=== PATIENT | female | born 1980 | race Caucasian/White ===

== ENCOUNTER 2019-12-29 09:00 | Outpatient (RCR) | payer OTHER, SELFPAY ==
--- NOTE | 2019-02-16 14:12 | PT.OIE ---
Current Diagnoses Other peripheral vertigo, unspecified ear (02/16/19) Cervicalgia (02/16/19) Visit Care Team Role Provider Type Priscila Bella DO Attending Provider Non-Staff Primary Care Provider Specialty: Medical Address: [address] [place] [address], [id number] Email: Physical Therapy Initial Evaluation PT-OP-A Visit Information Start: 02/16/19 07:27 Freq: Status: Active Protocol: Document 02/16/19 07:31 MB (Rec: 02/16/19 08:16 MB [id number]) Out-Patient Physical Therapy Visit Information Visit Information Visit Type Initial Evaluation Visit Start Time 07:31 Visit Stop Time 08:15 Total Visit Minutes 44 Visit Number 1 PT-OP-B Current Condition Start: 02/16/19 07:27 Freq: Status: Active Protocol: Document 02/16/19 07:31 MB (Rec: 02/16/19 08:59 MB [id number]) Current Condition History of Current Condition Onset Date 2011 Current Complaints Dizziness with cervical rotation and manual work. 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 Her inner ear was spared and she has a drain. 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 She is seeing CELESTINO Molina at [facility], for vestibular therapy. 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 She was found to have enlarged lymph node around C2. She gets dizzy with cervical mobility stretches and rotation right and left. She is here for myofascial work on her neck. She wonders what myofascial is. She had a massage in the past and it was not necessarily helpful. She has been seeing CELESTINO Molina for about 2.5 months. She is working on balance exericses, eye movements. She did have a little massage with Tracy and it went well. Tracy wanted pt to have myofascial massage. She has spasms and numbness left side of her face after ear surgery. She has droopiness in the left side of her lips. Her biggest area of spasm is left buccal area. She describes an involuntary Xu curve. 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 Pt denies pain. Patient Questionnaires Dizziness Handicap Inventory DHI Score 54% impairment PT-OP-K Range of Motion Start: 02/16/19 07:27 Freq: Status: Active Protocol: Document 02/16/19 07:31 MB (Rec: 02/16/19 08:59 MB [id number]) Cervical Spine Range of Motion Cervical Spine Active Testing Position Standing Flexion 30 Extension 35 Rotation Left 31 Rotation Right 31 Lateral Flexion Left 15 Lateral Flexion Right 15 Comments Pt does not perform enough ROM to cause dizziness PT-OP-M Strength Start: 02/16/19 07:27 Freq: Status: Active Protocol: Document 02/16/19 07:31 MB (Rec: 02/16/19 08:59 MB [id number]) Shoulder Strength Shoulder Manual Muscle Testing Left Flexion 5 Normal Abduction (C5) 5 Normal Right Flexion 5 Normal Abduction (C5) 5 Normal Elbow/Forearm Strength Elbow and Forearm Manual Muscle Testing Left Flexion (C6) 5 Normal Extension (C7) 5 Normal Right Flexion (C6) 5 Normal Extension (C7) 5 Normal Wrist Strength Wrist Manual Muscle Testing Both Comments Deferred flexion, extension, supination and pronation MMT d /t ulnar bone changes PT-OP-T Assessment and Plan Start: 02/16/19 07:27 Freq: Status: Active Protocol: Document 02/16/19 07:31 MB (Rec: 02/16/19 08:59 MB [id number]) Physical Therapy Assessment Rehab Potential Rehabilitation Potential Fair Evaluation Complexity Number of Personal Factors/Comorbidities 1-2 Number of Body Systems Impaired 1-2 Clinical Presentation at Evaluation Evolving Impairments Impairments Balance,Integument,Pain, Posture,ROM,Soft Tissue Mobility,Strength,Vestibular Other Impairments Pain only after massage by vestibular PT Goals 3 Application Packager Goal (LTG) Pt will present with improved B cervical rotation to 40 deg, B SB to 20 deg by 04/18/19. LTG Duration 8 weeks 2 Longterm Goal (LTG) Pt will perform HEP with I by 04/18/19. LTG Duration 8 weeks 1 Impairment DHI reflects 54%, perception of severe handicap Application Packager Goal (LTG) Pt will present with a DHI reflecting no more than 52%, perception of moderate handicap by 04/18/19. 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 She states that she has to focus with her eyes. Pt is seeing a vestibular PT at another clinic for vestibular rehabilitation and that therapist recommended that she see another physical therapist for myofascial work. Pt may benefit from PT to address postural and cervical limitations partially d/t myofascial limitations. She reports pain when her other PT did manual work previously. This, multiple medical co- morbidities and the fact that she is concurrently receiving PT with another vestibular therapist may be barriers to PT. Will attempt to monitor her response to this therapist 's interventions. Physical Therapy Plan Frequency and Duration Frequency of Treatment 2x/Week Duration of Treatment 8 weeks Plan of Care Start Date 02/16/19 Plan of Care End Date 04/18/19 Therapeutic Interventions Therapeutic Interventions Balance Training,Canalithic Repositioning,Home Exercise Program,Joint Mobilizations, Manual Therapy,Neuromuscular Re-education,Patient/Caregiver Education,Self-Care/Home Management,Soft Tissue Mobilization,Taping, Therapeutic Exercises, Vestibular Rehabilitation Modalities Cold Pack/Ice Massage,Electric Stimulation,Hot Packs, Ultrasound Next Visit Focus/Plan Next Note Type Treatment Note Next Visit Plan Consider initiating Counterstrain
--- NOTE | 2019-02-18 09:57 | PT-IP ANOTE ---
PT returns pt's call. Pt states that she is a little conflicted at this time. She spoke with Charles at [facility]. Their apppointments work with her work schedule and her appointments here do not. She asks if she can leave appointments by 8 a.m. She asks if [facility] therapist should con't to do manual work for her TMJ. She and [facility] therapists are interested in her switching services to this clinic but the timing of appointments here does not work for her work schedule as she works in [facility] [place]. She has 7 a.m. or 545 p.m. appointments there. This PT does arrival at 715 but clinic is not open until 730 usually so will make efforts to get her back early if possible and then stop appointments at 8 a.m. to allow her to get to work on time. PT recommends pt not to have manual work done at both clinics in order to determine what works and what doesn't. Pt is agreeable to only having manual work done with this therapist. Will initiate PT trial and monitor response to therapy.
--- NOTE | 2019-02-23 08:02 | PT.OTN ---
Current Diagnoses Other peripheral vertigo, unspecified ear (02/23/19) Cervicalgia (02/23/19) Physical Therapy Treatment Note PT-OP-A Visit Information Start: 02/16/19 07:27 Freq: Status: Active Protocol: Document 02/23/19 07:20 MB (Rec: 02/23/19 08:02 MB [id number]) Out-Patient Physical Therapy Visit Information Visit Information Visit Type Treatment Note Visit Note Treatment started early d/t pt has to leave by 0800 to make it to work on time Visit Start Time 07:20 Visit Stop Time 08:00 Total Visit Minutes 40 Visit Number 06/11 PT-OP-B Current Condition Start: 02/16/19 07:27 Freq: Status: Active Protocol: Document 02/16/19 07:31 MB (Rec: 02/16/19 08:59 MB [id number]) Current Condition History of Current Condition Onset Date 2011 Current Complaints Dizziness with cervical rotation and manual work. 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 Her inner ear was spared and she has a drain. 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 She is seeing CELESTINO Molina at [facility], for vestibular therapy. 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 She was found to have enlarged lymph node around C2. She gets dizzy with cervical mobility stretches and rotation right and left. She is here for myofascial work on her neck. She wonders what myofascial is. She had a massage in the past and it was not necessarily helpful. She has been seeing CELESTINO Molina for about 2.5 months. She is working on balance exericses, eye movements. She did have a little massage with Tracy and it went well. Tracy wanted pt to have myofascial massage. She has spasms and numbness left side of her face after ear surgery. She has droopiness in the left side of her lips. Her biggest area of spasm is left buccal area. She describes an involuntary Xu curve. 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 She is waiting to schedule again with her vestibular PT, Tracy. Today, she states she has B thoracic outlet syndrome. Her sxs are immobility of shoulders and pain and numbness and tingling in arms. She had a breast reduction and that was helpful. PT-OP-K Range of Motion Start: 02/16/19 07:27 Freq: Status: Active Protocol: Document 02/16/19 07:31 MB (Rec: 02/16/19 08:59 MB [id number]) Cervical Spine Range of Motion Cervical Spine Active Testing Position Standing Flexion 30 Extension 35 Rotation Left 31 Rotation Right 31 Lateral Flexion Left 15 Lateral Flexion Right 15 Comments Pt does not perform enough ROM to cause dizziness PT-OP-M Strength Start: 02/16/19 07:27 Freq: Status: Active Protocol: Document 02/16/19 07:31 MB (Rec: 02/16/19 08:59 MB [id number]) Shoulder Strength Shoulder Manual Muscle Testing Left Flexion 5 Normal Abduction (C5) 5 Normal Right Flexion 5 Normal Abduction (C5) 5 Normal Elbow/Forearm Strength Elbow and Forearm Manual Muscle Testing Left Flexion (C6) 5 Normal Extension (C7) 5 Normal Right Flexion (C6) 5 Normal Extension (C7) 5 Normal Wrist Strength Wrist Manual Muscle Testing Both Comments Deferred flexion, extension, supination and pronation MMT d /t ulnar bone changes PT-OP-Q Treatments Start: 02/16/19 07:27 Freq: Status: Active Protocol: Document 02/23/19 07:20 MB (Rec: 02/23/19 08:02 MB [id number]) Manual Therapy Treatment Other Other Manual Treatments Pt agrees to Counterstrain to assess and treat fascial tension: cranial nerves stacks , anterior neuro, arterial on the left, spinal medullaries-- treated stacks cervical and thoracic medullaries LV, treated standard row LV-- fascial and cervical stacks PT-OP-T Assessment and Plan Start: 02/16/19 07:27 Freq: Status: Active Protocol: Document 02/23/19 07:20 MB (Rec: 02/23/19 08:02 MB [id number]) Physical Therapy Assessment Rehab Potential Rehabilitation Potential Fair Evaluation Complexity Number of Personal Factors/Comorbidities 1-2 Number of Body Systems Impaired 1-2 Clinical Presentation at Evaluation Evolving Impairments Impairments Balance,Integument,Pain, Posture,ROM,Soft Tissue Mobility,Strength,Vestibular Other Impairments Pain only after massage by vestibular PT Goals 3 Under Trimmer Goal (LTG) Pt will present with improved B cervical rotation to 40 deg, B SB to 20 deg by 04/18/19. LTG Duration 8 weeks 2 Under Trimmer Goal (LTG) Pt will perform HEP with I by 04/18/19. LTG Duration 8 weeks 1 Impairment DHI reflects 54%, perception of severe handicap Longterm Goal (LTG) Pt will present with a DHI reflecting no more than 52%, perception of moderate handicap by 04/18/19. LTG Duration 8 weeks Assessment Summary Assessment Initiated Counterstrain this date and will montior sxs. Physical Therapy Plan Frequency and Duration Frequency of Treatment 2x/Week Duration of Treatment 8 weeks Plan of Care Start Date 02/16/19 Plan of Care End Date 04/18/19 Therapeutic Interventions Therapeutic Interventions Balance Training,Canalithic Repositioning,Home Exercise Program,Joint Mobilizations, Manual Therapy,Neuromuscular Re-education,Patient/Caregiver Education,Self-Care/Home Management,Soft Tissue Mobilization,Taping, Therapeutic Exercises, Vestibular Rehabilitation Modalities Cold Pack/Ice Massage,Electric Stimulation,Hot Packs, Ultrasound Next Visit Focus/Plan Next Note Type Treatment Note Next Visit Plan Consider initiating Counterstrain as appropriate-- recheck lymphatic venous and neural.
--- NOTE | 2019-03-04 08:06 | PT.OTN ---
Current Diagnoses Other peripheral vertigo, unspecified ear (03/04/19) Cervicalgia (03/04/19) Physical Therapy Treatment Note PT-OP-A Visit Information Start: 02/16/19 07:27 Freq: Status: Active Protocol: Document 02/23/19 07:20 MB (Rec: 02/23/19 08:02 MB [id number]) Out-Patient Physical Therapy Visit Information Visit Information Visit Type Treatment Note Visit Note Treatment started early d/t pt has to leave by 0800 to make it to work on time Visit Start Time 07:20 Visit Stop Time 08:00 Total Visit Minutes 40 Visit Number 06/11 PT-OP-B Current Condition Start: 02/16/19 07:27 Freq: Status: Active Protocol: Document 02/16/19 07:31 MB (Rec: 02/16/19 08:59 MB [id number]) Current Condition History of Current Condition Onset Date 2011 Current Complaints Dizziness with cervical rotation and manual work. 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 Her inner ear was spared and she has a drain. 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 She is seeing CELESTINO Molina at [facility], for vestibular therapy. 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 She was found to have enlarged lymph node around C2. She gets dizzy with cervical mobility stretches and rotation right and left. She is here for myofascial work on her neck. She wonders what myofascial is. She had a massage in the past and it was not necessarily helpful. She has been seeing CELESTINO Molina for about 2.5 months. She is working on balance exericses, eye movements. She did have a little massage with Tracy and it went well. Tracy wanted pt to have myofascial massage. She has spasms and numbness left side of her face after ear surgery. She has droopiness in the left side of her lips. Her biggest area of spasm is left buccal area. She describes an involuntary Xu curve. 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 She is waiting to schedule again with her vestibular PT, Tracy. Today, she states she has B thoracic outlet syndrome. Her sxs are immobility of shoulders and pain and numbness and tingling in arms. She had a breast reduction and that was helpful. PT-OP-K Range of Motion Start: 02/16/19 07:27 Freq: Status: Active Protocol: Document 02/16/19 07:31 MB (Rec: 02/16/19 08:59 MB [id number]) Cervical Spine Range of Motion Cervical Spine Active Testing Position Standing Flexion 30 Extension 35 Rotation Left 31 Rotation Right 31 Lateral Flexion Left 15 Lateral Flexion Right 15 Comments Pt does not perform enough ROM to cause dizziness PT-OP-M Strength Start: 02/16/19 07:27 Freq: Status: Active Protocol: Document 02/16/19 07:31 MB (Rec: 02/16/19 08:59 MB [id number]) Shoulder Strength Shoulder Manual Muscle Testing Left Flexion 5 Normal Abduction (C5) 5 Normal Right Flexion 5 Normal Abduction (C5) 5 Normal Elbow/Forearm Strength Elbow and Forearm Manual Muscle Testing Left Flexion (C6) 5 Normal Extension (C7) 5 Normal Right Flexion (C6) 5 Normal Extension (C7) 5 Normal Wrist Strength Wrist Manual Muscle Testing Both Comments Deferred flexion, extension, supination and pronation MMT d /t ulnar bone changes PT-OP-Q Treatments Start: 02/16/19 07:27 Freq: Status: Active Protocol: Document 02/23/19 07:20 MB (Rec: 02/23/19 08:02 MB [id number]) Manual Therapy Treatment Other Other Manual Treatments Pt agrees to Counterstrain to assess and treat fascial tension: cranial nerves stacks , anterior neuro, arterial on the left, spinal medullaries-- treated stacks cervical and thoracic medullaries LV, treated standard row LV-- fascial and cervical stacks PT-OP-T Assessment and Plan Start: 02/16/19 07:27 Freq: Status: Active Protocol: Document 02/23/19 07:20 MB (Rec: 02/23/19 08:02 MB [id number]) Physical Therapy Assessment Rehab Potential Rehabilitation Potential Fair Evaluation Complexity Number of Personal Factors/Comorbidities 1-2 Number of Body Systems Impaired 1-2 Clinical Presentation at Evaluation Evolving Impairments Impairments Balance,Integument,Pain, Posture,ROM,Soft Tissue Mobility,Strength,Vestibular Other Impairments Pain only after massage by vestibular PT Goals 3 Director [employer] Goal (LTG) Pt will present with improved B cervical rotation to 40 deg, B SB to 20 deg by 04/18/19. LTG Duration 8 weeks 2 [employer] Goal (LTG) Pt will perform HEP with I by 04/18/19. LTG Duration 8 weeks 1 Impairment DHI reflects 54%, perception of severe handicap Assisted Goal (LTG) Pt will present with a DHI reflecting no more than 52%, perception of moderate handicap by 04/18/19. LTG Duration 8 weeks Assessment Summary Assessment Initiated Counterstrain this date and will montior sxs. Physical Therapy Plan Frequency and Duration Frequency of Treatment 2x/Week Duration of Treatment 8 weeks Plan of Care Start Date 02/16/19 Plan of Care End Date 04/18/19 Therapeutic Interventions Therapeutic Interventions Balance Training,Canalithic Repositioning,Home Exercise Program,Joint Mobilizations, Manual Therapy,Neuromuscular Re-education,Patient/Caregiver Education,Self-Care/Home Management,Soft Tissue Mobilization,Taping, Therapeutic Exercises, Vestibular Rehabilitation Modalities Cold Pack/Ice Massage,Electric Stimulation,Hot Packs, Ultrasound Next Visit Focus/Plan Next Note Type Treatment Note Next Visit Plan Consider initiating Counterstrain as appropriate-- recheck lymphatic venous and neural.
--- NOTE | 2019-03-04 08:08 | PT.OTN ---
Current Diagnoses Other peripheral vertigo, unspecified ear (03/04/19) Cervicalgia (03/04/19) Physical Therapy Treatment Note PT-OP-A Visit Information Start: 02/16/19 07:27 Freq: Status: Active Protocol: Document 03/04/19 07:29 MB (Rec: 03/04/19 08:06 MB [id number]) Out-Patient Physical Therapy Visit Information Visit Information Visit Type Treatment Note Visit Note Shortened treatment d/t pt has to leave by 0800 to make it to work on time Visit Start Time 07:29 Visit Stop Time 08:00 Total Visit Minutes 31 Visit Number 3 PT-OP-B Current Condition Start: 02/16/19 07:27 Freq: Status: Active Protocol: Document 02/16/19 07:31 MB (Rec: 02/16/19 08:59 MB [id number]) Current Condition History of Current Condition Onset Date 2011 Current Complaints Dizziness with cervical rotation and manual work. 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 Her inner ear was spared and she has a drain. 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 She is seeing CELESTINO Molina at [facility], for vestibular therapy. 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 She was found to have enlarged lymph node around C2. She gets dizzy with cervical mobility stretches and rotation right and left. She is here for myofascial work on her neck. She wonders what myofascial is. She had a massage in the past and it was not necessarily helpful. She has been seeing CELESTINO Molina for about 2.5 months. She is working on balance exericses, eye movements. She did have a little massage with Tracy and it went well. Tracy wanted pt to have myofascial massage. She has spasms and numbness left side of her face after ear surgery. She has droopiness in the left side of her lips. Her biggest area of spasm is left buccal area. She describes an involuntary Xu curve. 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 She felt good after Counterstrain, has maybe felt more energy but has more trouble reading with eye focus. PT-OP-K Range of Motion Start: 02/16/19 07:27 Freq: Status: Active Protocol: Document 02/16/19 07:31 MB (Rec: 02/16/19 08:59 MB [id number]) Cervical Spine Range of Motion Cervical Spine Active Testing Position Standing Flexion 30 Extension 35 Rotation Left 31 Rotation Right 31 Lateral Flexion Left 15 Lateral Flexion Right 15 Comments Pt does not perform enough ROM to cause dizziness PT-OP-M Strength Start: 02/16/19 07:27 Freq: Status: Active Protocol: Document 02/16/19 07:31 MB (Rec: 02/16/19 08:59 MB [id number]) Shoulder Strength Shoulder Manual Muscle Testing Left Flexion 5 Normal Abduction (C5) 5 Normal Right Flexion 5 Normal Abduction (C5) 5 Normal Elbow/Forearm Strength Elbow and Forearm Manual Muscle Testing Left Flexion (C6) 5 Normal Extension (C7) 5 Normal Right Flexion (C6) 5 Normal Extension (C7) 5 Normal Wrist Strength Wrist Manual Muscle Testing Both Comments Deferred flexion, extension, supination and pronation MMT d /t ulnar bone changes PT-OP-Q Treatments Start: 02/16/19 07:27 Freq: Status: Active Protocol: Document 03/04/19 07:29 MB (Rec: 03/04/19 08:06 MB [id number]) Manual Therapy Treatment Other Other Manual Treatments Pt agrees to Counterstrain to assess and treat fascial tension: right visceral, right ALL, cervical somatic neural, myofascial right thoracic area, right spinal venous LV PT-OP-T Assessment and Plan Start: 02/16/19 07:27 Freq: Status: Active Protocol: Document 03/04/19 07:29 MB (Rec: 03/04/19 08:06 MB [id number]) Physical Therapy Assessment Rehab Potential Rehabilitation Potential Fair Evaluation Complexity Number of Personal Factors/Comorbidities 1-2 Number of Body Systems Impaired 1-2 Clinical Presentation at Evaluation Evolving Impairments Impairments Balance,Integument,Pain, Posture,ROM,Soft Tissue Mobility,Strength,Vestibular Other Impairments Pain only after massage by vestibular PT Goals 3 Dehydrating Press Operator Goal (LTG) Pt will present with improved B cervical rotation to 40 deg, B SB to 20 deg by 04/18/19. LTG Duration 8 weeks 2 Usp Goal (LTG) Pt will perform HEP with I by 04/18/19. LTG Duration 8 weeks 1 Impairment DHI reflects 54%, perception of severe handicap Usp Goal (LTG) Pt will present with a DHI reflecting no more than 52%, perception of moderate handicap by 04/18/19. LTG Duration 8 weeks Assessment Summary Assessment Con't Counterstrain this date and will montior sxs. Physical Therapy Plan Frequency and Duration Frequency of Treatment 2x/Week Duration of Treatment 8 weeks Plan of Care Start Date 02/16/19 Plan of Care End Date 04/18/19 Therapeutic Interventions Therapeutic Interventions Balance Training,Canalithic Repositioning,Home Exercise Program,Joint Mobilizations, Manual Therapy,Neuromuscular Re-education,Patient/Caregiver Education,Self-Care/Home Management,Soft Tissue Mobilization,Taping, Therapeutic Exercises, Vestibular Rehabilitation Modalities Cold Pack/Ice Massage,Electric Stimulation,Hot Packs, Ultrasound Next Visit Focus/Plan Next Note Type Treatment Note Next Visit Plan Consider continuing Counterstrain as appropriate
--- NOTE | 2019-03-10 08:14 | PT.OTN ---
Current Diagnoses Other peripheral vertigo, unspecified ear (03/10/19) Cervicalgia (03/10/19) Physical Therapy Treatment Note PT-OP-A Visit Information Start: 02/16/19 07:27 Freq: Status: Active Protocol: Document 03/10/19 07:28 MB (Rec: 03/10/19 08:14 MB [id number]) Out-Patient Physical Therapy Visit Information Visit Information Visit Type Treatment Note Visit Note Shortened treatment d/t pt has to leave by 0800 to make it to work on time Visit Start Time 07:28 Visit Stop Time 08:00 Total Visit Minutes 32 Visit Number 4 PT-OP-B Current Condition Start: 02/16/19 07:27 Freq: Status: Active Protocol: Document 02/16/19 07:31 MB (Rec: 02/16/19 08:59 MB [id number]) Current Condition History of Current Condition Onset Date 2011 Current Complaints Dizziness with cervical rotation and manual work. 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 Her inner ear was spared and she has a drain. 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 She is seeing CELESTINO Molina at [facility], for vestibular therapy. 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 She was found to have enlarged lymph node around C2. She gets dizzy with cervical mobility stretches and rotation right and left. She is here for myofascial work on her neck. She wonders what myofascial is. She had a massage in the past and it was not necessarily helpful. She has been seeing CELESTINO Molina for about 2.5 months. She is working on balance exericses, eye movements. She did have a little massage with Tracy and it went well. Tracy wanted pt to have myofascial massage. She has spasms and numbness left side of her face after ear surgery. She has droopiness in the left side of her lips. Her biggest area of spasm is left buccal area. She describes an involuntary Xu curve. 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 She is thinking about getting back to vestibular rehab with Tracy at [facility]. She will start in a couple of weeks. She thinks Counterstrain is helping things but she is not specific. She would like to con't with Counterstrain in conjunction with vestibular therapy at [facility] at this time. The vibration of the washing machine really bothered her over the weekend. She can sense earthquakes when they are a 2. Upon further talk with PT, pt states that she does have a history of trauma and vagal nerve issues and wonders if this may be a component to having trouble with relaxation ,. PT-OP-K Range of Motion Start: 02/16/19 07:27 Freq: Status: Active Protocol: Document 02/16/19 07:31 MB (Rec: 02/16/19 08:59 MB [id number]) Cervical Spine Range of Motion Cervical Spine Active Testing Position Standing Flexion 30 Extension 35 Rotation Left 31 Rotation Right 31 Lateral Flexion Left 15 Lateral Flexion Right 15 Comments Pt does not perform enough ROM to cause dizziness PT-OP-M Strength Start: 02/16/19 07:27 Freq: Status: Active Protocol: Document 02/16/19 07:31 MB (Rec: 02/16/19 08:59 MB [id number]) Shoulder Strength Shoulder Manual Muscle Testing Left Flexion 5 Normal Abduction (C5) 5 Normal Right Flexion 5 Normal Abduction (C5) 5 Normal Elbow/Forearm Strength Elbow and Forearm Manual Muscle Testing Left Flexion (C6) 5 Normal Extension (C7) 5 Normal Right Flexion (C6) 5 Normal Extension (C7) 5 Normal Wrist Strength Wrist Manual Muscle Testing Both Comments Deferred flexion, extension, supination and pronation MMT d /t ulnar bone changes PT-OP-Q Treatments Start: 02/16/19 07:27 Freq: Status: Active Protocol: Document 03/10/19 07:28 MB (Rec: 03/10/19 08:14 MB [id number]) Therapeutic Exercises Supine Exercises EFT Comments EFT to help decrease sympathetic response contributing to sxs Manual Therapy Treatment Other Other Manual Treatments Counterstrain screen positive for vagus nerve this date, not treated d/t triaging this date. Suboccipital release facilitates deep breathing and pt dropping her shoulders. PT-OP-T Assessment and Plan Start: 02/16/19 07:27 Freq: Status: Active Protocol: Document 03/10/19 07:28 MB (Rec: 03/10/19 08:14 MB [id number]) Physical Therapy Assessment Rehab Potential Rehabilitation Potential Fair Evaluation Complexity Number of Personal Factors/Comorbidities 1-2 Number of Body Systems Impaired 1-2 Clinical Presentation at Evaluation Evolving Impairments Impairments Balance,Integument,Pain, Posture,ROM,Soft Tissue Mobility,Strength,Vestibular Other Impairments Pain only after massage by vestibular PT Goals 3 Penitentiary Goal (LTG) Pt will present with improved B cervical rotation to 40 deg, B SB to 20 deg by 04/18/19. LTG Duration 8 weeks 2 Penitentiary Goal (LTG) Pt will perform HEP with I by 04/18/19. LTG Duration 8 weeks 1 Impairment DHI reflects 54%, perception of severe handicap Gas Systems Worker Goal (LTG) Pt will present with a DHI reflecting no more than 52%, perception of moderate handicap by 04/18/19. LTG Duration 8 weeks Assessment Summary Assessment Pt communicates trauma this date and increased job stress. This likely contributes to central vestibular sxs. She scans for fascial tension of vagus nerve today and will treat with future Counterstain . Initiated EFT today to help self-care, deep breathing. Physical Therapy Plan Frequency and Duration Frequency of Treatment 2x/Week Duration of Treatment 8 weeks Plan of Care Start Date 02/16/19 Plan of Care End Date 04/18/19 Therapeutic Interventions Therapeutic Interventions Balance Training,Canalithic Repositioning,Home Exercise Program,Joint Mobilizations, Manual Therapy,Neuromuscular Re-education,Patient/Caregiver Education,Self-Care/Home Management,Soft Tissue Mobilization,Taping, Therapeutic Exercises, Vestibular Rehabilitation Modalities Cold Pack/Ice Massage,Electric Stimulation,Hot Packs, Ultrasound Other Referrals/Consults Referrals/Consults Recommended Pt reports she has had counseling about stress, recommend ongoing care as needed. Next Visit Focus/Plan Next Note Type Treatment Note Next Visit Plan Consider continuing Counterstrain as appropriate, relaxation progression.
--- NOTE | 2019-03-18 08:16 | PT.OTN ---
Current Diagnoses Other peripheral vertigo, unspecified ear (03/18/19) Cervicalgia (03/18/19) Physical Therapy Treatment Note PT-OP-A Visit Information Start: 02/16/19 07:27 Freq: Status: Active Protocol: Document 03/18/19 07:30 MB (Rec: 03/18/19 07:42 MB [id number]) Out-Patient Physical Therapy Visit Information Visit Information Visit Type Treatment Note Visit Note Shortened treatment d/t pt has to leave by 0800 to make it to work on time Visit Start Time 07:30 Visit Stop Time 08:00 Total Visit Minutes 30 Visit Number 09/08 PT-OP-B Current Condition Start: 02/16/19 07:27 Freq: Status: Active Protocol: Document 02/16/19 07:31 MB (Rec: 02/16/19 08:59 MB [id number]) Current Condition History of Current Condition Onset Date 2011 Current Complaints Dizziness with cervical rotation and manual work. 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 Her inner ear was spared and she has a drain. 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 She is seeing CELESTINO Molina at [facility], for vestibular therapy. 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 She was found to have enlarged lymph node around C2. She gets dizzy with cervical mobility stretches and rotation right and left. She is here for myofascial work on her neck. She wonders what myofascial is. She had a massage in the past and it was not necessarily helpful. She has been seeing CELESTINO Molina for about 2.5 months. She is working on balance exericses, eye movements. She did have a little massage with Tracy and it went well. Tracy wanted pt to have myofascial massage. She has spasms and numbness left side of her face after ear surgery. She has droopiness in the left side of her lips. Her biggest area of spasm is left buccal area. She describes an involuntary Xu curve. 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 She is back in vestibular PT. She thinks that starting to talk about the vagus nerve and the physiological components of talking about old trauma. PT-OP-K Range of Motion Start: 02/16/19 07:27 Freq: Status: Active Protocol: Document 02/16/19 07:31 MB (Rec: 02/16/19 08:59 MB [id number]) Cervical Spine Range of Motion Cervical Spine Active Testing Position Standing Flexion 30 Extension 35 Rotation Left 31 Rotation Right 31 Lateral Flexion Left 15 Lateral Flexion Right 15 Comments Pt does not perform enough ROM to cause dizziness PT-OP-M Strength Start: 02/16/19 07:27 Freq: Status: Active Protocol: Document 02/16/19 07:31 MB (Rec: 02/16/19 08:59 MB [id number]) Shoulder Strength Shoulder Manual Muscle Testing Left Flexion 5 Normal Abduction (C5) 5 Normal Right Flexion 5 Normal Abduction (C5) 5 Normal Elbow/Forearm Strength Elbow and Forearm Manual Muscle Testing Left Flexion (C6) 5 Normal Extension (C7) 5 Normal Right Flexion (C6) 5 Normal Extension (C7) 5 Normal Wrist Strength Wrist Manual Muscle Testing Both Comments Deferred flexion, extension, supination and pronation MMT d /t ulnar bone changes PT-OP-Q Treatments Start: 02/16/19 07:27 Freq: Status: Active Protocol: Document 03/18/19 07:30 MB (Rec: 03/18/19 08:15 MB [id number]) Therapeutic Exercises Supine Exercises Diaphragmatic breathing Comments Diaphragmatic breathing started in hook lying Progressive Muscle Relaxation Exercises Comments Performed in supine this date, cues to perform as tolerates PT-OP-T Assessment and Plan Start: 02/16/19 07:27 Freq: Status: Active Protocol: Document 03/18/19 07:30 MB (Rec: 03/18/19 07:42 MB [id number]) Physical Therapy Assessment Rehab Potential Rehabilitation Potential Fair Evaluation Complexity Number of Personal Factors/Comorbidities 1-2 Number of Body Systems Impaired 1-2 Clinical Presentation at Evaluation Evolving Impairments Impairments Balance,Integument,Pain, Posture,ROM,Soft Tissue Mobility,Strength,Vestibular Other Impairments Pain only after massage by vestibular PT Goals 3 Mcc Goal (LTG) Pt will present with improved B cervical rotation to 40 deg, B SB to 20 deg by 04/18/19. LTG Duration 8 weeks 2 Drivability Technician Goal (LTG) Pt will perform HEP with I by 04/18/19. LTG Duration 8 weeks 1 Impairment DHI reflects 54%, perception of severe handicap Drivability Technician Goal (LTG) Pt will present with a DHI reflecting no more than 52%, perception of moderate handicap by 04/18/19. LTG Duration 8 weeks Assessment Summary Assessment Pt reports feeling jittery after last treatment. She thinks she might have started dealing with some physiological changes with PTSD. Initiated diaphragmatic breathing and muscle relaxation exercises. Physical Therapy Plan Frequency and Duration Frequency of Treatment 2x/Week Duration of Treatment 8 weeks Plan of Care Start Date 02/16/19 Plan of Care End Date 04/18/19 Therapeutic Interventions Therapeutic Interventions Balance Training,Canalithic Repositioning,Home Exercise Program,Joint Mobilizations, Manual Therapy,Neuromuscular Re-education,Patient/Caregiver Education,Self-Care/Home Management,Soft Tissue Mobilization,Taping, Therapeutic Exercises, Vestibular Rehabilitation Modalities Cold Pack/Ice Massage,Electric Stimulation,Hot Packs, Ultrasound Other Referrals/Consults Referrals/Consults Recommended Pt reports she has had counseling about stress, recommend ongoing care as needed. Next Visit Focus/Plan Next Note Type Treatment Note Next Visit Plan Consider continuing Counterstrain as appropriate, relaxation progression.
--- NOTE | 2019-03-25 08:16 | PT.OTN ---
Current Diagnoses Other peripheral vertigo, unspecified ear (03/25/19) Cervicalgia (03/25/19) Physical Therapy Treatment Note PT-OP-A Visit Information Start: 02/16/19 07:27 Freq: Status: Active Protocol: Document 03/25/19 07:29 MB (Rec: 03/25/19 08:16 MB [id number]) Out-Patient Physical Therapy Visit Information Visit Information Visit Type Treatment Note Visit Start Time 07:29 Visit Stop Time 08:07 Total Visit Minutes 38 Visit Number 10/09 PT-OP-B Current Condition Start: 02/16/19 07:27 Freq: Status: Active Protocol: Document 02/16/19 07:31 MB (Rec: 02/16/19 08:59 MB [id number]) Current Condition History of Current Condition Onset Date 2011 Current Complaints Dizziness with cervical rotation and manual work. 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 Her inner ear was spared and she has a drain. 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 She is seeing CELESTINO Molina at [facility], for vestibular therapy. 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 She was found to have enlarged lymph node around C2. She gets dizzy with cervical mobility stretches and rotation right and left. She is here for myofascial work on her neck. She wonders what myofascial is. She had a massage in the past and it was not necessarily helpful. She has been seeing CELESTINO Molina for about 2.5 months. She is working on balance exericses, eye movements. She did have a little massage with Tracy and it went well. Tracy wanted pt to have myofascial massage. She has spasms and numbness left side of her face after ear surgery. She has droopiness in the left side of her lips. Her biggest area of spasm is left buccal area. She describes an involuntary Xu curve. 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 She is getting an eye twitch today. She thinks that becky Counterstrain is helpful because the washing machine shaking doesn't bother her. PT-OP-K Range of Motion Start: 02/16/19 07:27 Freq: Status: Active Protocol: Document 02/16/19 07:31 MB (Rec: 02/16/19 08:59 MB [id number]) Cervical Spine Range of Motion Cervical Spine Active Testing Position Standing Flexion 30 Extension 35 Rotation Left 31 Rotation Right 31 Lateral Flexion Left 15 Lateral Flexion Right 15 Comments Pt does not perform enough ROM to cause dizziness PT-OP-M Strength Start: 02/16/19 07:27 Freq: Status: Active Protocol: Document 02/16/19 07:31 MB (Rec: 02/16/19 08:59 MB [id number]) Shoulder Strength Shoulder Manual Muscle Testing Left Flexion 5 Normal Abduction (C5) 5 Normal Right Flexion 5 Normal Abduction (C5) 5 Normal Elbow/Forearm Strength Elbow and Forearm Manual Muscle Testing Left Flexion (C6) 5 Normal Extension (C7) 5 Normal Right Flexion (C6) 5 Normal Extension (C7) 5 Normal Wrist Strength Wrist Manual Muscle Testing Both Comments Deferred flexion, extension, supination and pronation MMT d /t ulnar bone changes PT-OP-Q Treatments Start: 02/16/19 07:27 Freq: Status: Active Protocol: Document 03/25/19 07:29 MB (Rec: 03/25/19 08:16 MB [id number]) Manual Therapy Treatment Other Other Manual Treatments Pt denies eye pressure changes or issues. She has prediabetes. Pt agrees to Counterstrain to assess and treat fascial tension of the following areas and PT treats stacks: right trigeminal; right facial; right cranial nerve trochlear PT-OP-T Assessment and Plan Start: 02/16/19 07:27 Freq: Status: Active Protocol: Document 03/25/19 07:29 MB (Rec: 03/25/19 08:16 MB [id number]) Physical Therapy Assessment Rehab Potential Rehabilitation Potential Fair Evaluation Complexity Number of Personal Factors/Comorbidities 1-2 Number of Body Systems Impaired 1-2 Clinical Presentation at Evaluation Evolving Impairments Impairments Balance,Integument,Pain, Posture,ROM,Soft Tissue Mobility,Strength,Vestibular Other Impairments Pain only after massage by vestibular PT Goals 3 [employer] Goal (LTG) Pt will present with improved B cervical rotation to 40 deg, B SB to 20 deg by 04/18/19. LTG Duration 8 weeks 2 Skilled Nursing Goal (LTG) Pt will perform HEP with I by 04/18/19. LTG Duration 8 weeks 1 Impairment DHI reflects 54%, perception of severe handicap Skilled Nursing Goal (LTG) Pt will present with a DHI reflecting no more than 52%, perception of moderate handicap by 04/18/19. LTG Duration 8 weeks Assessment Summary Assessment Pt presents with left face twitching with treatment and reports she feels better after treatment. Con't Counterstrain and relaxation progression. Physical Therapy Plan Frequency and Duration Frequency of Treatment 2x/Week Duration of Treatment 8 weeks Plan of Care Start Date 02/16/19 Plan of Care End Date 04/18/19 Therapeutic Interventions Therapeutic Interventions Balance Training,Canalithic Repositioning,Home Exercise Program,Joint Mobilizations, Manual Therapy,Neuromuscular Re-education,Patient/Caregiver Education,Self-Care/Home Management,Soft Tissue Mobilization,Taping, Therapeutic Exercises, Vestibular Rehabilitation Modalities Cold Pack/Ice Massage,Electric Stimulation,Hot Packs, Ultrasound Other Referrals/Consults Referrals/Consults Recommended Pt reports she has had counseling about stress, recommend ongoing care as needed. Next Visit Focus/Plan Next Note Type Treatment Note Next Visit Plan Consider continuing Counterstrain as appropriate, relaxation progression.
--- NOTE | 2019-04-01 08:08 | PT.OTN ---
Current Diagnoses Other peripheral vertigo, unspecified ear (04/01/19) Cervicalgia (04/01/19) Physical Therapy Treatment Note PT-OP-A Visit Information Start: 02/16/19 07:27 Freq: Status: Active Protocol: Document 04/01/19 07:30 MB (Rec: 04/01/19 08:08 MB [id number]) Out-Patient Physical Therapy Visit Information Visit Information Visit Type Treatment Note Visit Start Time 07:30 Visit Stop Time 08:00 Total Visit Minutes 30 Visit Number 11/08 PT-OP-B Current Condition Start: 02/16/19 07:27 Freq: Status: Active Protocol: Document 02/16/19 07:31 MB (Rec: 02/16/19 08:59 MB [id number]) Current Condition History of Current Condition Onset Date 2011 Current Complaints Dizziness with cervical rotation and manual work. 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 Her inner ear was spared and she has a drain. 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 She is seeing CELESTINO Molina at [facility], for vestibular therapy. 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 She was found to have enlarged lymph node around C2. She gets dizzy with cervical mobility stretches and rotation right and left. She is here for myofascial work on her neck. She wonders what myofascial is. She had a massage in the past and it was not necessarily helpful. She has been seeing CELESTINO Molina for about 2.5 months. She is working on balance exericses, eye movements. She did have a little massage with Tracy and it went well. Tracy wanted pt to have myofascial massage. She has spasms and numbness left side of her face after ear surgery. She has droopiness in the left side of her lips. Her biggest area of spasm is left buccal area. She describes an involuntary Xu curve. 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 She is not bothered by it. She has an area of numbness on the outside of her left foot. Pt was just put on HCTZ. She follows up with neurotologist on 04/14/19. PT-OP-K Range of Motion Start: 02/16/19 07:27 Freq: Status: Active Protocol: Document 02/16/19 07:31 MB (Rec: 02/16/19 08:59 MB [id number]) Cervical Spine Range of Motion Cervical Spine Active Testing Position Standing Flexion 30 Extension 35 Rotation Left 31 Rotation Right 31 Lateral Flexion Left 15 Lateral Flexion Right 15 Comments Pt does not perform enough ROM to cause dizziness PT-OP-M Strength Start: 02/16/19 07:27 Freq: Status: Active Protocol: Document 02/16/19 07:31 MB (Rec: 02/16/19 08:59 MB [id number]) Shoulder Strength Shoulder Manual Muscle Testing Left Flexion 5 Normal Abduction (C5) 5 Normal Right Flexion 5 Normal Abduction (C5) 5 Normal Elbow/Forearm Strength Elbow and Forearm Manual Muscle Testing Left Flexion (C6) 5 Normal Extension (C7) 5 Normal Right Flexion (C6) 5 Normal Extension (C7) 5 Normal Wrist Strength Wrist Manual Muscle Testing Both Comments Deferred flexion, extension, supination and pronation MMT d /t ulnar bone changes PT-OP-Q Treatments Start: 02/16/19 07:27 Freq: Status: Active Protocol: Document 04/01/19 07:30 MB (Rec: 04/01/19 08:08 MB [id number]) Manual Therapy Treatment Other Other Manual Treatments Pt agrees to Counterstrain to assess and treat fascial tightness. PT treats appropriate stacks: left T8 AINTS, right cervical arterial , left facial and right vagus, left TENT, left temporal tempani, right sinuvertebral, right posterior LE somatics, left DPR cervical and thoracic , left proximal preganglionic PT-OP-T Assessment and Plan Start: 02/16/19 07:27 Freq: Status: Active Protocol: Document 04/01/19 07:30 MB (Rec: 04/01/19 08:08 MB [id number]) Physical Therapy Assessment Rehab Potential Rehabilitation Potential Fair Evaluation Complexity Number of Personal Factors/Comorbidities 1-2 Number of Body Systems Impaired 1-2 Clinical Presentation at Evaluation Evolving Impairments Impairments Balance,Integument,Pain, Posture,ROM,Soft Tissue Mobility,Strength,Vestibular Other Impairments Pain only after massage by vestibular PT Goals 3 Transactional Attorney Goal (LTG) Pt will present with improved B cervical rotation to 40 deg, B SB to 20 deg by 04/18/19. LTG Duration 8 weeks 2 Transactional Attorney Goal (LTG) Pt will perform HEP with I by 04/18/19. LTG Duration 8 weeks 1 Impairment DHI reflects 54%, perception of severe handicap Retirement Goal (LTG) Pt will present with a DHI reflecting no more than 52%, perception of moderate handicap by 04/18/19. LTG Duration 8 weeks Assessment Summary Assessment Pt scans heavy upper cervical DPR and arterial today as well as TENT. Reassess cranial nerves and arterial. Con't Counterstrain and relaxation progression. Physical Therapy Plan Frequency and Duration Frequency of Treatment 2x/Week Duration of Treatment 8 weeks Plan of Care Start Date 02/16/19 Plan of Care End Date 04/18/19 Therapeutic Interventions Therapeutic Interventions Balance Training,Canalithic Repositioning,Home Exercise Program,Joint Mobilizations, Manual Therapy,Neuromuscular Re-education,Patient/Caregiver Education,Self-Care/Home Management,Soft Tissue Mobilization,Taping, Therapeutic Exercises, Vestibular Rehabilitation Modalities Cold Pack/Ice Massage,Electric Stimulation,Hot Packs, Ultrasound Other Referrals/Consults Referrals/Consults Recommended Pt reports she has had counseling about stress, recommend ongoing care as needed. Next Visit Focus/Plan Next Note Type Treatment Note Next Visit Plan Consider continuing Counterstrain as appropriate, relaxation progression.
--- NOTE | 2019-04-07 08:19 | PT.OTN ---
Current Diagnoses Other peripheral vertigo, unspecified ear (04/07/19) Cervicalgia (04/07/19) Physical Therapy Treatment Note PT-OP-A Visit Information Start: 02/16/19 07:27 Freq: Status: Active Protocol: Document 04/07/19 07:26 MB (Rec: 04/07/19 07:36 MB [id number]) Out-Patient Physical Therapy Visit Information Visit Information Visit Type Treatment Note Visit Start Time 07:26 Visit Stop Time 08:06 Total Visit Minutes 40 Visit Number 12/09 PT-OP-B Current Condition Start: 02/16/19 07:27 Freq: Status: Active Protocol: Document 02/16/19 07:31 MB (Rec: 02/16/19 08:59 MB [id number]) Current Condition History of Current Condition Onset Date 2011 Current Complaints Dizziness with cervical rotation and manual work. 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 Her inner ear was spared and she has a drain. 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 She is seeing CELESTINO Molina at [facility], for vestibular therapy. 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 She was found to have enlarged lymph node around C2. She gets dizzy with cervical mobility stretches and rotation right and left. She is here for myofascial work on her neck. She wonders what myofascial is. She had a massage in the past and it was not necessarily helpful. She has been seeing CELESTINO Molina for about 2.5 months. She is working on balance exericses, eye movements. She did have a little massage with Tracy and it went well. Tracy wanted pt to have myofascial massage. She has spasms and numbness left side of her face after ear surgery. She has droopiness in the left side of her lips. Her biggest area of spasm is left buccal area. She describes an involuntary Xu curve. 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 She notes drooping on both sides of her mouth. PT-OP-K Range of Motion Start: 02/16/19 07:27 Freq: Status: Active Protocol: Document 02/16/19 07:31 MB (Rec: 02/16/19 08:59 MB [id number]) Cervical Spine Range of Motion Cervical Spine Active Testing Position Standing Flexion 30 Extension 35 Rotation Left 31 Rotation Right 31 Lateral Flexion Left 15 Lateral Flexion Right 15 Comments Pt does not perform enough ROM to cause dizziness PT-OP-M Strength Start: 02/16/19 07:27 Freq: Status: Active Protocol: Document 02/16/19 07:31 MB (Rec: 02/16/19 08:59 MB [id number]) Shoulder Strength Shoulder Manual Muscle Testing Left Flexion 5 Normal Abduction (C5) 5 Normal Right Flexion 5 Normal Abduction (C5) 5 Normal Elbow/Forearm Strength Elbow and Forearm Manual Muscle Testing Left Flexion (C6) 5 Normal Extension (C7) 5 Normal Right Flexion (C6) 5 Normal Extension (C7) 5 Normal Wrist Strength Wrist Manual Muscle Testing Both Comments Deferred flexion, extension, supination and pronation MMT d /t ulnar bone changes PT-OP-Q Treatments Start: 02/16/19 07:27 Freq: Status: Active Protocol: Document 04/07/19 07:26 MB (Rec: 04/07/19 08:04 MB [id number]) Manual Therapy Treatment Other Other Manual Treatments Pt agrees to Counterstrain to assess and treat fascial tightness. PT treats appropriate stacks: cervical somatics right, thoracic spine arterial, right trigeminal, dura left, right facial PT-OP-T Assessment and Plan Start: 02/16/19 07:27 Freq: Status: Active Protocol: Document 04/07/19 07:26 MB (Rec: 04/07/19 07:34 MB [id number]) Physical Therapy Assessment Rehab Potential Rehabilitation Potential Fair Evaluation Complexity Number of Personal Factors/Comorbidities 1-2 Number of Body Systems Impaired 1-2 Clinical Presentation at Evaluation Evolving Impairments Impairments Balance,Integument,Pain, Posture,ROM,Soft Tissue Mobility,Strength,Vestibular Other Impairments Pain only after massage by vestibular PT Goals 3 [employer] Goal (LTG) Pt will present with improved B cervical rotation to 40 deg, B SB to 20 deg by 04/18/19. LTG Duration 8 weeks 2 Senior Care Goal (LTG) Pt will perform HEP with I by 04/18/19. LTG Duration 8 weeks 1 Impairment DHI reflects 54%, perception of severe handicap [employer] Dis[employer]ator Goal (LTG) Pt will present with a DHI reflecting no more than 52%, perception of moderate handicap by 04/18/19. LTG Duration 8 weeks Assessment Summary Assessment Need to assess periosteal and anterior cervical somatics. Con't Counterstrain and relaxation progression. Physical Therapy Plan Frequency and Duration Frequency of Treatment 2x/Week Duration of Treatment 8 weeks Plan of Care Start Date 02/16/19 Plan of Care End Date 04/18/19 Therapeutic Interventions Therapeutic Interventions Balance Training,Canalithic Repositioning,Home Exercise Program,Joint Mobilizations, Manual Therapy,Neuromuscular Re-education,Patient/Caregiver Education,Self-Care/Home Management,Soft Tissue Mobilization,Taping, Therapeutic Exercises, Vestibular Rehabilitation Modalities Cold Pack/Ice Massage,Electric Stimulation,Hot Packs, Ultrasound Other Referrals/Consults Referrals/Consults Recommended Pt reports she has had counseling about stress, recommend ongoing care as needed. Next Visit Focus/Plan Next Note Type Treatment Note Next Visit Plan Pt can attend two appointments this week. Consider continuing Counterstrain as appropriate, relaxation progression.
--- NOTE | 2019-04-09 08:16 | PT.OTN ---
Current Diagnoses Other peripheral vertigo, unspecified ear (04/09/19) Cervicalgia (04/09/19) Physical Therapy Treatment Note PT-OP-A Visit Information Start: 02/16/19 07:27 Freq: Status: Active Protocol: Document 04/09/19 07:27 MB (Rec: 04/09/19 08:16 MB [id number]) Out-Patient Physical Therapy Visit Information Visit Information Visit Type Treatment Note Visit Start Time 07:27 Visit Stop Time 08:07 Total Visit Minutes 40 Visit Number 01/09 PT-OP-B Current Condition Start: 02/16/19 07:27 Freq: Status: Active Protocol: Document 02/16/19 07:31 MB (Rec: 02/16/19 08:59 MB [id number]) Current Condition History of Current Condition Onset Date 2011 Current Complaints Dizziness with cervical rotation and manual work. 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 Her inner ear was spared and she has a drain. 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 She is seeing CELESTINO Molina at [facility], for vestibular therapy. 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 She was found to have enlarged lymph node around C2. She gets dizzy with cervical mobility stretches and rotation right and left. She is here for myofascial work on her neck. She wonders what myofascial is. She had a massage in the past and it was not necessarily helpful. She has been seeing CELESTINO Molina for about 2.5 months. She is working on balance exericses, eye movements. She did have a little massage with Tracy and it went well. Tracy wanted pt to have myofascial massage. She has spasms and numbness left side of her face after ear surgery. She has droopiness in the left side of her lips. Her biggest area of spasm is left buccal area. She describes an involuntary Xu curve. 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 Her vestibular PT, Tracy, dx her with persistent postural perceptual dizziness. She is getting exercises where she is walking in the hallways and other people are walking towards her. PT-OP-K Range of Motion Start: 02/16/19 07:27 Freq: Status: Active Protocol: Document 02/16/19 07:31 MB (Rec: 02/16/19 08:59 MB [id number]) Cervical Spine Range of Motion Cervical Spine Active Testing Position Standing Flexion 30 Extension 35 Rotation Left 31 Rotation Right 31 Lateral Flexion Left 15 Lateral Flexion Right 15 Comments Pt does not perform enough ROM to cause dizziness PT-OP-M Strength Start: 02/16/19 07:27 Freq: Status: Active Protocol: Document 02/16/19 07:31 MB (Rec: 02/16/19 08:59 MB [id number]) Shoulder Strength Shoulder Manual Muscle Testing Left Flexion 5 Normal Abduction (C5) 5 Normal Right Flexion 5 Normal Abduction (C5) 5 Normal Elbow/Forearm Strength Elbow and Forearm Manual Muscle Testing Left Flexion (C6) 5 Normal Extension (C7) 5 Normal Right Flexion (C6) 5 Normal Extension (C7) 5 Normal Wrist Strength Wrist Manual Muscle Testing Both Comments Deferred flexion, extension, supination and pronation MMT d /t ulnar bone changes PT-OP-Q Treatments Start: 02/16/19 07:27 Freq: Status: Active Protocol: Document 04/09/19 07:27 MB (Rec: 04/09/19 08:16 MB [id number]) Manual Therapy Treatment Other Other Manual Treatments Pt agrees to Counterstrain to assess and treat fascial tightness: right cervical DPR, left thoracic to lumbar DPR, left posterior LE somatics and periosteal (cervical) B, greater on the right. PT treats stacks: PLAN 2-3 LE neural fascial chain with second point DFIB PT-OP-T Assessment and Plan Start: 02/16/19 07:27 Freq: Status: Active Protocol: Document 04/09/19 07:27 MB (Rec: 04/09/19 08:16 MB [id number]) Physical Therapy Assessment Rehab Potential Rehabilitation Potential Fair Evaluation Complexity Number of Personal Factors/Comorbidities 1-2 Number of Body Systems Impaired 1-2 Clinical Presentation at Evaluation Evolving Impairments Impairments Balance,Integument,Pain, Posture,ROM,Soft Tissue Mobility,Strength,Vestibular Other Impairments Pain only after massage by vestibular PT Goals 3 Assisted Goal (LTG) Pt will present with improved B cervical rotation to 40 deg, B SB to 20 deg by 04/18/19. LTG Duration 8 weeks 2 Assisted Goal (LTG) Pt will perform HEP with I by 04/18/19. LTG Duration 8 weeks 1 Impairment DHI reflects 54%, perception of severe handicap Assisted Goal (LTG) Pt will present with a DHI reflecting no more than 52%, perception of moderate handicap by 04/18/19. LTG Duration 8 weeks Assessment Summary Assessment Treated neural tension of LEs that connected to sacrum and occiput today. Con't Counterstrain and relaxation progression. Physical Therapy Plan Frequency and Duration Frequency of Treatment 2x/Week Duration of Treatment 8 weeks Plan of Care Start Date 02/16/19 Plan of Care End Date 04/18/19 Therapeutic Interventions Therapeutic Interventions Balance Training,Canalithic Repositioning,Home Exercise Program,Joint Mobilizations, Manual Therapy,Neuromuscular Re-education,Patient/Caregiver Education,Self-Care/Home Management,Soft Tissue Mobilization,Taping, Therapeutic Exercises, Vestibular Rehabilitation Modalities Cold Pack/Ice Massage,Electric Stimulation,Hot Packs, Ultrasound Other Referrals/Consults Referrals/Consults Recommended Pt reports she has had counseling about stress, recommend ongoing care as needed. Next Visit Focus/Plan Next Note Type Treatment Note Next Visit Plan Pt can attend two appointments this week. Consider continuing Counterstrain as appropriate, relaxation progression.
--- NOTE | 2019-04-15 08:14 | PT.OTN ---
Current Diagnoses Other peripheral vertigo, unspecified ear (04/15/19) Cervicalgia (04/15/19) Physical Therapy Treatment Note PT-OP-A Visit Information Start: 02/16/19 07:27 Freq: Status: Active Protocol: Document 04/15/19 07:30 MB (Rec: 04/15/19 08:14 MB [id number]) Out-Patient Physical Therapy Visit Information Visit Information Visit Type Treatment Note Visit Start Time 07:30 Visit Stop Time 08:10 Total Visit Minutes 40 Visit Number 02/08 PT-OP-B Current Condition Start: 02/16/19 07:27 Freq: Status: Active Protocol: Document 02/16/19 07:31 MB (Rec: 02/16/19 08:59 MB [id number]) Current Condition History of Current Condition Onset Date 2011 Current Complaints Dizziness with cervical rotation and manual work. 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 Her inner ear was spared and she has a drain. 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 She is seeing CELESTINO Molina at [facility], for vestibular therapy. 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 She was found to have enlarged lymph node around C2. She gets dizzy with cervical mobility stretches and rotation right and left. She is here for myofascial work on her neck. She wonders what myofascial is. She had a massage in the past and it was not necessarily helpful. She has been seeing CELESTINO Molina for about 2.5 months. She is working on balance exericses, eye movements. She did have a little massage with Tracy and it went well. Tracy wanted pt to have myofascial massage. She has spasms and numbness left side of her face after ear surgery. She has droopiness in the left side of her lips. Her biggest area of spasm is left buccal area. She describes an involuntary Xu curve. 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 She has had right scapular pain. She went up on her HCTZ 2 weeks ago and has been senstive to medication changes in the past. This occurred with lisinopril and beta blockers. She had left diastolic dysfunction grade 1 that was related to Lisinopril in the past. She gets an ECHO every year and the ECHO was clear in July and has been for years. She states she might be dehydrated. She will call doctor if worsening symptoms. Fluid intake helps her feel better. Pt saw neurotologist yesterday and had left ear tube removed yesterday. PT-OP-K Range of Motion Start: 02/16/19 07:27 Freq: Status: Active Protocol: Document 02/16/19 07:31 MB (Rec: 02/16/19 08:59 MB [id number]) Cervical Spine Range of Motion Cervical Spine Active Testing Position Standing Flexion 30 Extension 35 Rotation Left 31 Rotation Right 31 Lateral Flexion Left 15 Lateral Flexion Right 15 Comments Pt does not perform enough ROM to cause dizziness PT-OP-M Strength Start: 02/16/19 07:27 Freq: Status: Active Protocol: Document 02/16/19 07:31 MB (Rec: 02/16/19 08:59 MB [id number]) Shoulder Strength Shoulder Manual Muscle Testing Left Flexion 5 Normal Abduction (C5) 5 Normal Right Flexion 5 Normal Abduction (C5) 5 Normal Elbow/Forearm Strength Elbow and Forearm Manual Muscle Testing Left Flexion (C6) 5 Normal Extension (C7) 5 Normal Right Flexion (C6) 5 Normal Extension (C7) 5 Normal Wrist Strength Wrist Manual Muscle Testing Both Comments Deferred flexion, extension, supination and pronation MMT d /t ulnar bone changes PT-OP-Q Treatments Start: 02/16/19 07:27 Freq: Status: Active Protocol: Document 04/15/19 07:30 MB (Rec: 04/15/19 08:14 MB [id number]) Manual Therapy Treatment Other Other Manual Treatments Pt agrees to Counterstrain to assess and treat fascial tightness. PT treats stacks: left facial, right trigeminal, left periosteal with tightness inferior left mastoid PT-OP-T Assessment and Plan Start: 02/16/19 07:27 Freq: Status: Active Protocol: Document 04/15/19 07:30 MB (Rec: 04/15/19 08:14 MB [id number]) Physical Therapy Assessment Rehab Potential Rehabilitation Potential Fair Evaluation Complexity Number of Personal Factors/Comorbidities 1-2 Number of Body Systems Impaired 1-2 Clinical Presentation at Evaluation Evolving Impairments Impairments Balance,Integument,Pain, Posture,ROM,Soft Tissue Mobility,Strength,Vestibular Other Impairments Pain only after massage by vestibular PT Goals 3 Cooperer Goal (LTG) Pt will present with improved B cervical rotation to 40 deg, B SB to 20 deg by 04/18/19. LTG Duration 8 weeks 2 Cooperer Goal (LTG) Pt will perform HEP with I by 04/18/19. LTG Duration 8 weeks 1 Impairment DHI reflects 54%, perception of severe handicap Nursing Home Goal (LTG) Pt will present with a DHI reflecting no more than 52%, perception of moderate handicap by 04/18/19. LTG Duration 8 weeks Assessment Summary Assessment Treated further neural fascial tension today. Consider working on myofascia for SCM next date and teach self-care. Physical Therapy Plan Frequency and Duration Frequency of Treatment 2x/Week Duration of Treatment 8 weeks Plan of Care Start Date 02/16/19 Plan of Care End Date 04/18/19 Therapeutic Interventions Therapeutic Interventions Balance Training,Canalithic Repositioning,Home Exercise Program,Joint Mobilizations, Manual Therapy,Neuromuscular Re-education,Patient/Caregiver Education,Self-Care/Home Management,Soft Tissue Mobilization,Taping, Therapeutic Exercises, Vestibular Rehabilitation Modalities Cold Pack/Ice Massage,Electric Stimulation,Hot Packs, Ultrasound Other Referrals/Consults Referrals/Consults Recommended Encouraged pt to follow-up with doctor if she has further symptoms with chest flutter or shoulder pain or other concerns. Next Visit Focus/Plan Next Note Type Treatment Note Next Visit Plan Consider continuing Counterstrain as appropriate, relaxation progression.
--- NOTE | 2019-05-06 09:48 | PT.OTN ---
Current Diagnoses Other peripheral vertigo, unspecified ear (05/06/19) Cervicalgia (05/06/19) Physical Therapy Treatment Note PT-OP-A Visit Information Start: 02/16/19 07:27 Freq: Status: Active Protocol: Document 05/06/19 09:01 MB (Rec: 05/06/19 09:47 MB [id number]) Out-Patient Physical Therapy Visit Information Visit Information Visit Type Treatment Note Visit Start Time 09:01 Visit Stop Time 09:41 Total Visit Minutes 40 Visit Number 03/11 PT-OP-B Current Condition Start: 02/16/19 07:27 Freq: Status: Active Protocol: Document 02/16/19 07:31 MB (Rec: 02/16/19 08:59 MB [id number]) Current Condition History of Current Condition Onset Date 2011 Current Complaints Dizziness with cervical rotation and manual work. 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 Her inner ear was spared and she has a drain. 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 She is seeing CELESTINO Molina at [facility], for vestibular therapy. 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 She was found to have enlarged lymph node around C2. She gets dizzy with cervical mobility stretches and rotation right and left. She is here for myofascial work on her neck. She wonders what myofascial is. She had a massage in the past and it was not necessarily helpful. She has been seeing CELESTINO Molina for about 2.5 months. She is working on balance exericses, eye movements. She did have a little massage with Tracy and it went well. Tracy wanted pt to have myofascial massage. She has spasms and numbness left side of her face after ear surgery. She has droopiness in the left side of her lips. Her biggest area of spasm is left buccal area. She describes an involuntary Xu curve. 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 She is improving for sure. She has less spinning dizziness and more pressure behind the head and light-headedness. She has episodes of buzzing on the left. She has been tripping more. She might have been more tired. She has not had anymore chest flutters. PT-OP-K Range of Motion Start: 02/16/19 07:27 Freq: Status: Active Protocol: Document 02/16/19 07:31 MB (Rec: 02/16/19 08:59 MB [id number]) Cervical Spine Range of Motion Cervical Spine Active Testing Position Standing Flexion 30 Extension 35 Rotation Left 31 Rotation Right 31 Lateral Flexion Left 15 Lateral Flexion Right 15 Comments Pt does not perform enough ROM to cause dizziness PT-OP-M Strength Start: 02/16/19 07:27 Freq: Status: Active Protocol: Document 02/16/19 07:31 MB (Rec: 02/16/19 08:59 MB [id number]) Shoulder Strength Shoulder Manual Muscle Testing Left Flexion 5 Normal Abduction (C5) 5 Normal Right Flexion 5 Normal Abduction (C5) 5 Normal Elbow/Forearm Strength Elbow and Forearm Manual Muscle Testing Left Flexion (C6) 5 Normal Extension (C7) 5 Normal Right Flexion (C6) 5 Normal Extension (C7) 5 Normal Wrist Strength Wrist Manual Muscle Testing Both Comments Deferred flexion, extension, supination and pronation MMT d /t ulnar bone changes PT-OP-Q Treatments Start: 02/16/19 07:27 Freq: Status: Active Protocol: Document 05/06/19 09:01 MB (Rec: 05/06/19 09:47 MB [id number]) Therapeutic Exercises Other Exercises Reviewed HEP today and will add SCM MWM in the futture if helpful Comments Performed diaphragmaitc breathing Manual Therapy Treatment Other Other Manual Treatments SCM MWM B with PT holding trigger points and pt perform active cervical rotations in supine. PT-OP-T Assessment and Plan Start: 02/16/19 07:27 Freq: Status: Active Protocol: Document 05/06/19 09:01 MB (Rec: 05/06/19 09:47 MB [id number]) Physical Therapy Assessment Rehab Potential Rehabilitation Potential Fair Evaluation Complexity Number of Personal Factors/Comorbidities 1-2 Number of Body Systems Impaired 1-2 Clinical Presentation at Evaluation Evolving Impairments Impairments Balance,Integument,Pain, Posture,ROM,Soft Tissue Mobility,Strength,Vestibular Other Impairments Pain only after massage by vestibular PT Goals 4 Head Resident Goal (LTG) Pt will perform WNLs on FGA to decrease fall risk by 07/06/19. LTG Duration 8 weeks 3 Fci Goal (LTG) Pt will present with improved B cervical rotation to 60 deg, B SB to 25 deg to increase functional movement by 2019. 05/06/2019: Pt presents with right rotation 42 deg and left rotation 51 deg; right SB 25 deg and left 15 deg. LTG Duration 8 weeks 2 Fci Goal (LTG) Pt will perform HEP with I to improve dizziness by 07/06/2019. 05/06/20192: Pt has been performing few exercises given this by this PT as well as vestibular exercises from vestibular PT. Consider following eyes with thread the needle that she is doing LTG Duration 8 weeks 1 Impairment DHI reflects 54%, perception of severe handicap Head Resident Goal (LTG) Pt will present with a DHI reflecting no more than 45%, perception of moderate handicap by 07/06/2019. 05/06/2019: DHI is 54% and pt states that she can recognize her sxs more easily and this might affect score. LTG Duration 8 weeks Assessment Summary Assessment Pt has progressed towards HEP and cervical ROM since starting PT. She con't with impairment with DHI and may state that she understands the questions better and this may affect score. Added a balance goal today but pt is performing these with other vestibular therapist. Con't myofascial and flexibility, relaxing, core and scapular strengthening progression to decrease fascial tightness and improve dizziness. PT encourages pt to increase non- caffeinated fluid intake. Physical Therapy Plan Frequency and Duration Frequency of Treatment 2x/Week Duration of Treatment 8 weeks Plan of Care Start Date 05/06/19 Plan of Care End Date 07/06/19 Therapeutic Interventions Therapeutic Interventions Balance Training,Canalithic Repositioning,Home Exercise Program,Joint Mobilizations, Manual Therapy,Neuromuscular Re-education,Patient/Caregiver Education,Self-Care/Home Management,Soft Tissue Mobilization,Taping, Therapeutic Exercises, Vestibular Rehabilitation Modalities Cold Pack/Ice Massage,Electric Stimulation,Hot Packs, Ultrasound Next Visit Focus/Plan Next Note Type Treatment Note Next Visit Plan Con't progression. Consider adding MWM SCM to home program if she can tolerate it
--- NOTE | 2019-05-06 09:48 | PT.OPPOC ---
Physical, Occupational & Speech Therapy At [facility] Current Diagnoses Other peripheral vertigo, unspecified ear (05/06/19) Cervicalgia (05/06/19) Visit Care Team Role Provider Type Priscila Bella DO Attending Provider Non-Staff Primary Care Provider Specialty: Medical Address: [address] [place] [address], [id number] Email: Plan Of Care PT-OP-T Assessment and Plan Start: 02/16/19 07:27 Freq: Status: Active Protocol: Document 05/06/19 09:01 MB (Rec: 05/06/19 09:47 MB [id number]) Physical Therapy Assessment Rehab Potential Rehabilitation Potential Fair Evaluation Complexity Number of Personal Factors/Comorbidities 1-2 Number of Body Systems Impaired 1-2 Clinical Presentation at Evaluation Evolving Impairments Impairments Balance,Integument,Pain, Posture,ROM,Soft Tissue Mobility,Strength,Vestibular Other Impairments Pain only after massage by vestibular PT Goals 4 Manager Law Goal (LTG) Pt will perform WNLs on FGA to decrease fall risk by 07/06/19. LTG Duration 8 weeks 3 Usp Goal (LTG) Pt will present with improved B cervical rotation to 60 deg, B SB to 25 deg to increase functional movement by 2019. 05/06/2019: Pt presents with right rotation 42 deg and left rotation 51 deg; right SB 25 deg and left 15 deg. LTG Duration 8 weeks 2 Usp Goal (LTG) Pt will perform HEP with I to improve dizziness by 07/06/2019. 05/06/20192: Pt has been performing few exercises given this by this PT as well as vestibular exercises from vestibular PT. Consider following eyes with thread the needle that she is doing LTG Duration 8 weeks 1 Impairment DHI reflects 54%, perception of severe handicap Usp Goal (LTG) Pt will present with a DHI reflecting no more than 45%, perception of moderate handicap by 07/06/2019. 05/06/2019: DHI is 54% and pt states that she can recognize her sxs more easily and this might affect score. LTG Duration 8 weeks Assessment Summary Assessment Pt has progressed towards HEP and cervical ROM since starting PT. She con't with impairment with DHI and may state that she understands the questions better and this may affect score. Added a balance goal today but pt is performing these with other vestibular therapist. Con't myofascial and flexibility, relaxing, core and scapular strengthening progression to decrease fascial tightness and improve dizziness. PT encourages pt to increase non- caffeinated fluid intake. Physical Therapy Plan Frequency and Duration Frequency of Treatment 2x/Week Duration of Treatment 8 weeks Plan of Care Start Date 05/06/19 Plan of Care End Date 07/06/19 Therapeutic Interventions Therapeutic Interventions Balance Training,Canalithic Repositioning,Home Exercise Program,Joint Mobilizations, Manual Therapy,Neuromuscular Re-education,Patient/Caregiver Education,Self-Care/Home Management,Soft Tissue Mobilization,Taping, Therapeutic Exercises, Vestibular Rehabilitation Modalities Cold Pack/Ice Massage,Electric Stimulation,Hot Packs, Ultrasound Next Visit Focus/Plan Next Note Type Treatment Note Next Visit Plan Con't progression. Consider adding MWM SCM to home program if she can tolerate it Plan of Care Dates Plan of Care Start Date 05/06/19 Plan of Care End Date 07/06/19 Electronically Signed by: Rae Sprague, PT 05/06/19 0979 Please Sign and Return: I have reviewed this Plan of Care and certify that the skilled therapy services above are required to meet the patient?s needs. Physician Signature Date Printed Name and Credentials Clinical Instructor Signature Printed Name and Credentials
--- NOTE | 2019-05-08 08:14 | PT.OTN ---
Current Diagnoses Other peripheral vertigo, unspecified ear (05/08/19) Cervicalgia (05/08/19) Physical Therapy Treatment Note PT-OP-A Visit Information Start: 02/16/19 07:27 Freq: Status: Active Protocol: Document 05/08/19 07:34 MB (Rec: 05/08/19 08:14 MB [id number]) Out-Patient Physical Therapy Visit Information Visit Information Visit Type Treatment Note Visit Note One more treatment on old auth and new auth in Visit Start Time 07:34 Visit Stop Time 08:14 Total Visit Minutes 40 Visit Number 12/ PT-OP-B Current Condition Start: 02/16/19 07:27 Freq: Status: Active Protocol: Document 02/16/19 07:31 MB (Rec: 02/16/19 08:59 MB [id number]) Current Condition History of Current Condition Onset Date 2011 Current Complaints Dizziness with cervical rotation and manual work. 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 Her inner ear was spared and she has a drain. 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 She is seeing CELESTINO Molina at [facility], for vestibular therapy. 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 She was found to have enlarged lymph node around C2. She gets dizzy with cervical mobility stretches and rotation right and left. She is here for myofascial work on her neck. She wonders what myofascial is. She had a massage in the past and it was not necessarily helpful. She has been seeing CELESTINO Molina for about 2.5 months. She is working on balance exericses, eye movements. She did have a little massage with Tracy and it went well. Tracy wanted pt to have myofascial massage. She has spasms and numbness left side of her face after ear surgery. She has droopiness in the left side of her lips. Her biggest area of spasm is left buccal area. She describes an involuntary Xu curve. 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 It was gradual. PT-OP-K Range of Motion Start: 02/16/19 07:27 Freq: Status: Active Protocol: Document 02/16/19 07:31 MB (Rec: 02/16/19 08:59 MB [id number]) Cervical Spine Range of Motion Cervical Spine Active Testing Position Standing Flexion 30 Extension 35 Rotation Left 31 Rotation Right 31 Lateral Flexion Left 15 Lateral Flexion Right 15 Comments Pt does not perform enough ROM to cause dizziness PT-OP-M Strength Start: 02/16/19 07:27 Freq: Status: Active Protocol: Document 02/16/19 07:31 MB (Rec: 02/16/19 08:59 MB [id number]) Shoulder Strength Shoulder Manual Muscle Testing Left Flexion 5 Normal Abduction (C5) 5 Normal Right Flexion 5 Normal Abduction (C5) 5 Normal Elbow/Forearm Strength Elbow and Forearm Manual Muscle Testing Left Flexion (C6) 5 Normal Extension (C7) 5 Normal Right Flexion (C6) 5 Normal Extension (C7) 5 Normal Wrist Strength Wrist Manual Muscle Testing Both Comments Deferred flexion, extension, supination and pronation MMT d /t ulnar bone changes PT-OP-Q Treatments Start: 02/16/19 07:27 Freq: Status: Active Protocol: Document 05/08/19 07:34 MB (Rec: 05/08/19 08:14 MB [id number]) Therapeutic Exercises Supine Exercises Gently pull ear lobes and digastric STM with tongue to roof and swallow Comments Performed today and ed for HEP with aural pressure Manual Therapy Treatment Manual Techniques Counterstrain Comments Pt agrees to Counterstrain to assess and treat fascial restrictions and PT treats stacks: right anterior cervical somatic, right ligamentum flavum, right facial, STM hyoids and digastric with pt swallowing Other Other Manual Treatments SCM MWM B with PT holding trigger points and pt perform active cervical rotations in supine. PT-OP-T Assessment and Plan Start: 02/16/19 07:27 Freq: Status: Active Protocol: Document 05/08/19 07:34 MB (Rec: 05/08/19 08:14 MB [id number]) Physical Therapy Assessment Rehab Potential Rehabilitation Potential Fair Evaluation Complexity Number of Personal Factors/Comorbidities 1-2 Number of Body Systems Impaired 1-2 Clinical Presentation at Evaluation Evolving Impairments Impairments Balance,Integument,Pain, Posture,ROM,Soft Tissue Mobility,Strength,Vestibular Other Impairments Pain only after massage by vestibular PT Goals 4 Station Engineer Goal (LTG) Pt will perform WNLs on FGA to decrease fall risk by 07/06/19. LTG Duration 8 weeks 3 Intermediate Goal (LTG) Pt will present with improved B cervical rotation to 60 deg, B SB to 25 deg to increase functional movement by 2019. 05/06/2019: Pt presents with right rotation 42 deg and left rotation 51 deg; right SB 25 deg and left 15 deg. LTG Duration 8 weeks 2 Station Engineer Goal (LTG) Pt will perform HEP with I to improve dizziness by 07/06/2019. 05/06/20192: Pt has been performing few exercises given this by this PT as well as vestibular exercises from vestibular PT. Consider following eyes with thread the needle that she is doing LTG Duration 8 weeks 1 Impairment DHI reflects 54%, perception of severe handicap Station Engineer Goal (LTG) Pt will present with a DHI reflecting no more than 45%, perception of moderate handicap by 07/06/2019. 05/06/2019: DHI is 54% and pt states that she can recognize her sxs more easily and this might affect score. LTG Duration 8 weeks Assessment Summary Assessment Ongoing Counterstrain this date and pt has tension in hyoid muscles and digastric and STM with tongue to roof and swallow. Physical Therapy Plan Frequency and Duration Frequency of Treatment 2x/Week Duration of Treatment 8 weeks Plan of Care Start Date 05/06/19 Plan of Care End Date 07/06/19 Therapeutic Interventions Therapeutic Interventions Balance Training,Canalithic Repositioning,Home Exercise Program,Joint Mobilizations, Manual Therapy,Neuromuscular Re-education,Patient/Caregiver Education,Self-Care/Home Management,Soft Tissue Mobilization,Taping, Therapeutic Exercises, Vestibular Rehabilitation Modalities Cold Pack/Ice Massage,Electric Stimulation,Hot Packs, Ultrasound Next Visit Focus/Plan Next Note Type Treatment Note Next Visit Plan Con't progression
--- NOTE | 2019-05-13 10:26 | PT-OP ANOTE ---
Appointment cancelled in setting of inclement weather
--- NOTE | 2019-05-15 13:49 | PT.OTN ---
Current Diagnoses Other peripheral vertigo, unspecified ear (05/15/19) Cervicalgia (05/15/19) Physical Therapy Treatment Note PT-OP-A Visit Information Start: 02/16/19 07:27 Freq: Status: Active Protocol: Document 05/15/19 13:05 MB (Rec: 05/15/19 13:48 MB [id number]) Out-Patient Physical Therapy Visit Information Visit Information Visit Type Treatment Note Visit Note New auth in and will initiate treatment on new auth next treatment date Visit Start Time 13:05 Visit Stop Time 13:45 Total Visit Minutes 40 Visit Number PT-OP-B Current Condition Start: 02/16/19 07:27 Freq: Status: Active Protocol: Document 02/16/19 07:31 MB (Rec: 02/16/19 08:59 MB [id number]) Current Condition History of Current Condition Onset Date 2011 Current Complaints Dizziness with cervical rotation and manual work. 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 Her inner ear was spared and she has a drain. 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 She is seeing CELESTINO Molina at [facility], for vestibular therapy. 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 She was found to have enlarged lymph node around C2. She gets dizzy with cervical mobility stretches and rotation right and left. She is here for myofascial work on her neck. She wonders what myofascial is. She had a massage in the past and it was not necessarily helpful. She has been seeing CELESTINO Molina for about 2.5 months. She is working on balance exericses, eye movements. She did have a little massage with Tracy and it went well. Tracy wanted pt to have myofascial massage. She has spasms and numbness left side of her face after ear surgery. She has droopiness in the left side of her lips. Her biggest area of spasm is left buccal area. She describes an involuntary Xu curve. 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 PT-OP-K Range of Motion Start: 02/16/19 07:27 Freq: Status: Active Protocol: Document 02/16/19 07:31 MB (Rec: 02/16/19 08:59 MB [id number]) Cervical Spine Range of Motion Cervical Spine Active Testing Position Standing Flexion 30 Extension 35 Rotation Left 31 Rotation Right 31 Lateral Flexion Left 15 Lateral Flexion Right 15 Comments Pt does not perform enough ROM to cause dizziness PT-OP-M Strength Start: 02/16/19 07:27 Freq: Status: Active Protocol: Document 02/16/19 07:31 MB (Rec: 02/16/19 08:59 MB [id number]) Shoulder Strength Shoulder Manual Muscle Testing Left Flexion 5 Normal Abduction (C5) 5 Normal Right Flexion 5 Normal Abduction (C5) 5 Normal Elbow/Forearm Strength Elbow and Forearm Manual Muscle Testing Left Flexion (C6) 5 Normal Extension (C7) 5 Normal Right Flexion (C6) 5 Normal Extension (C7) 5 Normal Wrist Strength Wrist Manual Muscle Testing Both Comments Deferred flexion, extension, supination and pronation MMT d /t ulnar bone changes PT-OP-Q Treatments Start: 02/16/19 07:27 Freq: Status: Active Protocol: Document 05/15/19 13:05 MB (Rec: 05/15/19 13:48 MB [id number]) Manual Therapy Treatment Manual Techniques Counterstrain Comments Pt agrees to Counterstrain to assess and treat fascial restrictions and PT treats stacks: ligamentum flavum and ALL cervical to lumbar PT-OP-T Assessment and Plan Start: 02/16/19 07:27 Freq: Status: Active Protocol: Document 05/15/19 13:05 MB (Rec: 05/15/19 13:48 MB [id number]) Physical Therapy Assessment Rehab Potential Rehabilitation Potential Fair Evaluation Complexity Number of Personal Factors/Comorbidities 1-2 Number of Body Systems Impaired 1-2 Clinical Presentation at Evaluation Evolving Impairments Impairments Balance,Integument,Pain, Posture,ROM,Soft Tissue Mobility,Strength,Vestibular Other Impairments Pain only after massage by vestibular PT Goals 4 [employer] Consultant Goal (LTG) Pt will perform WNLs on FGA to decrease fall risk by 07/06/19. LTG Duration 8 weeks 3 [employer] Consultant Goal (LTG) Pt will present with improved B cervical rotation to 60 deg, B SB to 25 deg to increase functional movement by 2019. 05/06/2019: Pt presents with right rotation 42 deg and left rotation 51 deg; right SB 25 deg and left 15 deg. LTG Duration 8 weeks 2 [employer] Consultant Goal (LTG) Pt will perform HEP with I to improve dizziness by 07/06/2019. 05/06/20192: Pt has been performing few exercises given this by this PT as well as vestibular exercises from vestibular PT. Consider following eyes with thread the needle that she is doing LTG Duration 8 weeks 1 Impairment DHI reflects 54%, perception of severe handicap Senior Care Goal (LTG) Pt will present with a DHI reflecting no more than 45%, perception of moderate handicap by 07/06/2019. 05/06/2019: DHI is 54% and pt states that she can recognize her sxs more easily and this might affect score. LTG Duration 8 weeks Assessment Summary Assessment Con't with Counterstrain this date and cervical mobility better after treatment. May consider pelvic realignment exercises to help address alignment issues that affect cervical spine and thus movement of head. Physical Therapy Plan Frequency and Duration Frequency of Treatment 2x/Week Duration of Treatment 8 weeks Plan of Care Start Date 05/06/19 Plan of Care End Date 07/06/19 Therapeutic Interventions Therapeutic Interventions Balance Training,Canalithic Repositioning,Home Exercise Program,Joint Mobilizations, Manual Therapy,Neuromuscular Re-education,Patient/Caregiver Education,Self-Care/Home Management,Soft Tissue Mobilization,Taping, Therapeutic Exercises, Vestibular Rehabilitation Modalities Cold Pack/Ice Massage,Electric Stimulation,Hot Packs, Ultrasound Next Visit Focus/Plan Next Note Type Treatment Note Next Visit Plan Con't progression
--- NOTE | 2019-05-20 09:01 | PT.OTN ---
Current Diagnoses Other peripheral vertigo, unspecified ear (05/20/19) Cervicalgia (05/20/19) Physical Therapy Treatment Note PT-OP-A Visit Information Start: 02/16/19 07:27 Freq: Status: Active Protocol: Document 05/20/19 08:16 MB (Rec: 05/20/19 08:59 MB [id number]) Out-Patient Physical Therapy Visit Information Visit Information Visit Type Treatment Note Visit Note New auth in Visit Start Time 08:16 Visit Stop Time 08:56 Total Visit Minutes 40 Visit Number 05/10 PT-OP-B Current Condition Start: 02/16/19 07:27 Freq: Status: Active Protocol: Document 02/16/19 07:31 MB (Rec: 02/16/19 08:59 MB [id number]) Current Condition History of Current Condition Onset Date 2011 Current Complaints Dizziness with cervical rotation and manual work. 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 Her inner ear was spared and she has a drain. 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 She is seeing CELESTINO Molina at [facility], for vestibular therapy. 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 She was found to have enlarged lymph node around C2. She gets dizzy with cervical mobility stretches and rotation right and left. She is here for myofascial work on her neck. She wonders what myofascial is. She had a massage in the past and it was not necessarily helpful. She has been seeing CELESTINO Molina for about 2.5 months. She is working on balance exericses, eye movements. She did have a little massage with Tracy and it went well. Tracy wanted pt to have myofascial massage. She has spasms and numbness left side of her face after ear surgery. She has droopiness in the left side of her lips. Her biggest area of spasm is left buccal area. She describes an involuntary Xu curve. 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 They have a pinching sensation. Her dizziness went pretty well on the treadmill. PT-OP-K Range of Motion Start: 02/16/19 07:27 Freq: Status: Active Protocol: Document 02/16/19 07:31 MB (Rec: 02/16/19 08:59 MB [id number]) Cervical Spine Range of Motion Cervical Spine Active Testing Position Standing Flexion 30 Extension 35 Rotation Left 31 Rotation Right 31 Lateral Flexion Left 15 Lateral Flexion Right 15 Comments Pt does not perform enough ROM to cause dizziness PT-OP-M Strength Start: 02/16/19 07:27 Freq: Status: Active Protocol: Document 02/16/19 07:31 MB (Rec: 02/16/19 08:59 MB [id number]) Shoulder Strength Shoulder Manual Muscle Testing Left Flexion 5 Normal Abduction (C5) 5 Normal Right Flexion 5 Normal Abduction (C5) 5 Normal Elbow/Forearm Strength Elbow and Forearm Manual Muscle Testing Left Flexion (C6) 5 Normal Extension (C7) 5 Normal Right Flexion (C6) 5 Normal Extension (C7) 5 Normal Wrist Strength Wrist Manual Muscle Testing Both Comments Deferred flexion, extension, supination and pronation MMT d /t ulnar bone changes PT-OP-Q Treatments Start: 02/16/19 07:27 Freq: Status: Active Protocol: Document 05/20/19 08:16 MB (Rec: 05/20/19 08:59 MB [id number]) Therapeutic Exercises Supine Exercises Pelvic realignment exercise Comments Performed today, 5 reps hold 3 sec, added to HEP Other Exercises Racquet ball massage with MWM shoulder ER for infraspinatus and cervical rotation for upper traps Comments Performed today these muscles and latissimus, B, breathing with exercises Gait Training Gait Activity Gait assessment in socks and will add gentle cork lift Comments Pt has gait anomalies d/t LE changes, briefly, pronates on the right foot and walks high on the left. Pt was a toe walker as a child and had turned legs. Cork lining will not fit in current shoe and so she will try at home and remove if trouble PT-OP-T Assessment and Plan Start: 02/16/19 07:27 Freq: Status: Active Protocol: Document 05/20/19 08:16 MB (Rec: 05/20/19 08:59 MB [id number]) Physical Therapy Assessment Rehab Potential Rehabilitation Potential Fair Evaluation Complexity Number of Personal Factors/Comorbidities 1-2 Number of Body Systems Impaired 1-2 Clinical Presentation at Evaluation Evolving Impairments Impairments Balance,Integument,Pain, Posture,ROM,Soft Tissue Mobility,Strength,Vestibular Other Impairments Pain only after massage by vestibular PT Goals 4 Associate Professor Of Biology Goal (LTG) Pt will perform WNLs on FGA to decrease fall risk by 07/06/19. LTG Duration 8 weeks 3 Prison Goal (LTG) Pt will present with improved B cervical rotation to 60 deg, B SB to 25 deg to increase functional movement by 2019. 05/06/2019: Pt presents with right rotation 42 deg and left rotation 51 deg; right SB 25 deg and left 15 deg. LTG Duration 8 weeks 2 Prison Goal (LTG) Pt will perform HEP with I to improve dizziness by 07/06/2019. 05/06/20192: Pt has been performing few exercises given this by this PT as well as vestibular exercises from vestibular PT. Consider following eyes with thread the needle that she is doing LTG Duration 8 weeks 1 Impairment DHI reflects 54%, perception of severe handicap Prison Goal (LTG) Pt will present with a DHI reflecting no more than 45%, perception of moderate handicap by 07/06/2019. 05/06/2019: DHI is 54% and pt states that she can recognize her sxs more easily and this might affect score. LTG Duration 8 weeks Assessment Summary Assessment Pelvic realigment exercises this date to help with cervical alignment and pain. The goal is to help with posture and neck tightness. Also, addressed postural changes with gait to facilitate posture improvement . Monitor response to self- massage Physical Therapy Plan Frequency and Duration Frequency of Treatment 2x/Week Duration of Treatment 8 weeks Plan of Care Start Date 05/06/19 Plan of Care End Date 07/06/19 Therapeutic Interventions Therapeutic Interventions Balance Training,Canalithic Repositioning,Home Exercise Program,Joint Mobilizations, Manual Therapy,Neuromuscular Re-education,Patient/Caregiver Education,Self-Care/Home Management,Soft Tissue Mobilization,Taping, Therapeutic Exercises, Vestibular Rehabilitation Modalities Cold Pack/Ice Massage,Electric Stimulation,Hot Packs, Ultrasound Next Visit Focus/Plan Next Note Type Treatment Note Next Visit Plan Con't progression, consider scapular strengthening, cervical isometric, pect and thoracic stretches
--- NOTE | 2019-05-21 08:16 | PT.OTN ---
Current Diagnoses Other peripheral vertigo, unspecified ear (05/21/19) Cervicalgia (05/21/19) Physical Therapy Treatment Note PT-OP-A Visit Information Start: 02/16/19 07:27 Freq: Status: Active Protocol: Document 05/21/19 07:37 MB (Rec: 05/21/19 08:15 MB [id number]) Out-Patient Physical Therapy Visit Information Visit Information Visit Type Treatment Note Visit Note New auth in Visit Start Time 07:37 Visit Stop Time 08:15 Total Visit Minutes 38 Visit Number 06/10 PT-OP-B Current Condition Start: 02/16/19 07:27 Freq: Status: Active Protocol: Document 02/16/19 07:31 MB (Rec: 02/16/19 08:59 MB [id number]) Current Condition History of Current Condition Onset Date 2011 Current Complaints Dizziness with cervical rotation and manual work. 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 Her inner ear was spared and she has a drain. 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 She is seeing CELESTINO Molina at [facility], for vestibular therapy. 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 She was found to have enlarged lymph node around C2. She gets dizzy with cervical mobility stretches and rotation right and left. She is here for myofascial work on her neck. She wonders what myofascial is. She had a massage in the past and it was not necessarily helpful. She has been seeing CELESTINO Molina for about 2.5 months. She is working on balance exericses, eye movements. She did have a little massage with Tracy and it went well. Tracy wanted pt to have myofascial massage. She has spasms and numbness left side of her face after ear surgery. She has droopiness in the left side of her lips. Her biggest area of spasm is left buccal area. She describes an involuntary Xu curve. 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 PT-OP-K Range of Motion Start: 02/16/19 07:27 Freq: Status: Active Protocol: Document 02/16/19 07:31 MB (Rec: 02/16/19 08:59 MB [id number]) Cervical Spine Range of Motion Cervical Spine Active Testing Position Standing Flexion 30 Extension 35 Rotation Left 31 Rotation Right 31 Lateral Flexion Left 15 Lateral Flexion Right 15 Comments Pt does not perform enough ROM to cause dizziness PT-OP-M Strength Start: 02/16/19 07:27 Freq: Status: Active Protocol: Document 02/16/19 07:31 MB (Rec: 02/16/19 08:59 MB [id number]) Shoulder Strength Shoulder Manual Muscle Testing Left Flexion 5 Normal Abduction (C5) 5 Normal Right Flexion 5 Normal Abduction (C5) 5 Normal Elbow/Forearm Strength Elbow and Forearm Manual Muscle Testing Left Flexion (C6) 5 Normal Extension (C7) 5 Normal Right Flexion (C6) 5 Normal Extension (C7) 5 Normal Wrist Strength Wrist Manual Muscle Testing Both Comments Deferred flexion, extension, supination and pronation MMT d /t ulnar bone changes PT-OP-Q Treatments Start: 02/16/19 07:27 Freq: Status: Active Protocol: Document 05/21/19 07:37 MB (Rec: 05/21/19 08:15 MB [id number]) Manual Therapy Treatment Manual Techniques Counterstrain Comments Pt agrees to Counterstrain to assess and treat fascial restrictions and PT treats stacks: B somatic anterior cervical, right ALL and ligmentum, left sinuvertebral, left DPR, left pre-ganglionic LE, left UE posterior somatic , left standard lymphatic ( most treatment lymphatic system facial, cervical and thoracic) PT-OP-T Assessment and Plan Start: 02/16/19 07:27 Freq: Status: Active Protocol: Document 05/21/19 07:37 MB (Rec: 05/21/19 08:15 MB [id number]) Physical Therapy Assessment Rehab Potential Rehabilitation Potential Fair Evaluation Complexity Number of Personal Factors/Comorbidities 1-2 Number of Body Systems Impaired 1-2 Clinical Presentation at Evaluation Evolving Impairments Impairments Balance,Integument,Pain, Posture,ROM,Soft Tissue Mobility,Strength,Vestibular Other Impairments Pain only after massage by vestibular PT Goals 4 Skilled Nursing Goal (LTG) Pt will perform WNLs on FGA to decrease fall risk by 07/06/19. LTG Duration 8 weeks 3 Boxing Instructor Goal (LTG) Pt will present with improved B cervical rotation to 60 deg, B SB to 25 deg to increase functional movement by 2019. 05/06/2019: Pt presents with right rotation 42 deg and left rotation 51 deg; right SB 25 deg and left 15 deg. LTG Duration 8 weeks 2 Skilled Nursing Goal (LTG) Pt will perform HEP with I to improve dizziness by 07/06/2019. 05/06/20192: Pt has been performing few exercises given this by this PT as well as vestibular exercises from vestibular PT. Consider following eyes with thread the needle that she is doing LTG Duration 8 weeks 1 Impairment DHI reflects 54%, perception of severe handicap Boxing Instructor Goal (LTG) Pt will present with a DHI reflecting no more than 45%, perception of moderate handicap by 07/06/2019. 05/06/2019: DHI is 54% and pt states that she can recognize her sxs more easily and this might affect score. LTG Duration 8 weeks Assessment Summary Assessment Pt presents with increased lymphatic venous fascial tension this date and treated with Counterstrain. Physical Therapy Plan Frequency and Duration Frequency of Treatment 2x/Week Duration of Treatment 8 weeks Plan of Care Start Date 05/06/19 Plan of Care End Date 07/06/19 Therapeutic Interventions Therapeutic Interventions Balance Training,Canalithic Repositioning,Home Exercise Program,Joint Mobilizations, Manual Therapy,Neuromuscular Re-education,Patient/Caregiver Education,Self-Care/Home Management,Soft Tissue Mobilization,Taping, Therapeutic Exercises, Vestibular Rehabilitation Modalities Cold Pack/Ice Massage,Electric Stimulation,Hot Packs, Ultrasound Next Visit Focus/Plan Next Note Type Treatment Note Next Visit Plan Con't progression, consider scapular strengthening, cervical isometric, pect and thoracic stretches
--- NOTE | 2019-05-27 08:59 | PT.OTN ---
Current Diagnoses Other peripheral vertigo, unspecified ear (05/27/19) Cervicalgia (05/27/19) Physical Therapy Treatment Note PT-OP-A Visit Information Start: 02/16/19 07:27 Freq: Status: Active Protocol: Document 05/27/19 08:19 MB (Rec: 05/27/19 08:59 MB [id number]) Out-Patient Physical Therapy Visit Information Visit Information Visit Type Treatment Note Visit Start Time 08:19 Visit Stop Time 08:59 Total Visit Minutes 40 Visit Number 07/08 PT-OP-B Current Condition Start: 02/16/19 07:27 Freq: Status: Active Protocol: Document 02/16/19 07:31 MB (Rec: 02/16/19 08:59 MB [id number]) Current Condition History of Current Condition Onset Date 2011 Current Complaints Dizziness with cervical rotation and manual work. 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 Her inner ear was spared and she has a drain. 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 She is seeing CELESTINO Molina at [facility], for vestibular therapy. 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 She was found to have enlarged lymph node around C2. She gets dizzy with cervical mobility stretches and rotation right and left. She is here for myofascial work on her neck. She wonders what myofascial is. She had a massage in the past and it was not necessarily helpful. She has been seeing CELESTINO Molina for about 2.5 months. She is working on balance exericses, eye movements. She did have a little massage with Tracy and it went well. Tracy wanted pt to have myofascial massage. She has spasms and numbness left side of her face after ear surgery. She has droopiness in the left side of her lips. Her biggest area of spasm is left buccal area. She describes an involuntary Xu curve. 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 She did okay scanning right and left in grocery store. She con't with neck pain and dizziness with looking up. The pinch on the underside of her thighs is better after Counterstrain. Stairs are better as a result. PT-OP-K Range of Motion Start: 02/16/19 07:27 Freq: Status: Active Protocol: Document 02/16/19 07:31 MB (Rec: 02/16/19 08:59 MB [id number]) Cervical Spine Range of Motion Cervical Spine Active Testing Position Standing Flexion 30 Extension 35 Rotation Left 31 Rotation Right 31 Lateral Flexion Left 15 Lateral Flexion Right 15 Comments Pt does not perform enough ROM to cause dizziness PT-OP-M Strength Start: 02/16/19 07:27 Freq: Status: Active Protocol: Document 02/16/19 07:31 MB (Rec: 02/16/19 08:59 MB [id number]) Shoulder Strength Shoulder Manual Muscle Testing Left Flexion 5 Normal Abduction (C5) 5 Normal Right Flexion 5 Normal Abduction (C5) 5 Normal Elbow/Forearm Strength Elbow and Forearm Manual Muscle Testing Left Flexion (C6) 5 Normal Extension (C7) 5 Normal Right Flexion (C6) 5 Normal Extension (C7) 5 Normal Wrist Strength Wrist Manual Muscle Testing Both Comments Deferred flexion, extension, supination and pronation MMT d /t ulnar bone changes PT-OP-Q Treatments Start: 02/16/19 07:27 Freq: Status: Active Protocol: Document 05/27/19 08:19 MB (Rec: 05/27/19 08:59 MB [id number]) Manual Therapy Treatment Manual Techniques Counterstrain Comments Pt agrees to Counterstrain to assess and treat fascial restrictions and PT treats stacks: ALL cervical and thoracic B, B spinal vein flexion PT-OP-T Assessment and Plan Start: 02/16/19 07:27 Freq: Status: Active Protocol: Document 05/27/19 08:19 MB (Rec: 05/27/19 08:59 MB [id number]) Physical Therapy Assessment Rehab Potential Rehabilitation Potential Fair Evaluation Complexity Number of Personal Factors/Comorbidities 1-2 Number of Body Systems Impaired 1-2 Clinical Presentation at Evaluation Evolving Impairments Impairments Balance,Integument,Pain, Posture,ROM,Soft Tissue Mobility,Strength,Vestibular Other Impairments Pain only after massage by vestibular PT Goals 4 Detention Goal (LTG) Pt will perform WNLs on FGA to decrease fall risk by 07/06/19. LTG Duration 8 weeks 3 Data Center Engineer Goal (LTG) Pt will present with improved B cervical rotation to 60 deg, B SB to 25 deg to increase functional movement by 2019. 05/06/2019: Pt presents with right rotation 42 deg and left rotation 51 deg; right SB 25 deg and left 15 deg. LTG Duration 8 weeks 2 Detention Goal (LTG) Pt will perform HEP with I to improve dizziness by 07/06/2019. 05/06/20192: Pt has been performing few exercises given this by this PT as well as vestibular exercises from vestibular PT. Consider following eyes with thread the needle that she is doing LTG Duration 8 weeks 1 Impairment DHI reflects 54%, perception of severe handicap Detention Goal (LTG) Pt will present with a DHI reflecting no more than 45%, perception of moderate handicap by 07/06/2019. 05/06/2019: DHI is 54% and pt states that she can recognize her sxs more easily and this might affect score. LTG Duration 8 weeks Assessment Summary Assessment Pt presents with improved facial tension after Counterstrain today. She has had some eye twitching that is improved. Con't progression. Pt has improved left ear pain after treatment. Physical Therapy Plan Frequency and Duration Frequency of Treatment 2x/Week Duration of Treatment 8 weeks Plan of Care Start Date 05/06/19 Plan of Care End Date 07/06/19 Therapeutic Interventions Therapeutic Interventions Balance Training,Canalithic Repositioning,Home Exercise Program,Joint Mobilizations, Manual Therapy,Neuromuscular Re-education,Patient/Caregiver Education,Self-Care/Home Management,Soft Tissue Mobilization,Taping, Therapeutic Exercises, Vestibular Rehabilitation Modalities Cold Pack/Ice Massage,Electric Stimulation,Hot Packs, Ultrasound Next Visit Focus/Plan Next Note Type Treatment Note Next Visit Plan Con't progression, consider scapular strengthening, cervical isometric, pect and thoracic stretches
--- NOTE | 2019-06-01 08:56 | PT-OP ANOTE ---
PT called pt. 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 Will monitor.
--- NOTE | 2019-06-03 10:31 | PT.OTN ---
Current Diagnoses Other peripheral vertigo, unspecified ear (06/03/19) Cervicalgia (06/03/19) Physical Therapy Treatment Note PT-OP-A Visit Information Start: 02/16/19 07:27 Freq: Status: Active Protocol: Document 06/03/19 09:47 MB (Rec: 06/03/19 10:31 MB [id number]) Out-Patient Physical Therapy Visit Information Visit Information Visit Type Treatment Note Visit Start Time 09:47 Visit Stop Time 10:29 Total Visit Minutes 42 Visit Number 08/08 PT-OP-B Current Condition Start: 02/16/19 07:27 Freq: Status: Active Protocol: Document 02/16/19 07:31 MB (Rec: 02/16/19 08:59 MB [id number]) Current Condition History of Current Condition Onset Date 2011 Current Complaints Dizziness with cervical rotation and manual work. 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 Her inner ear was spared and she has a drain. 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 She is seeing CELESTINO Molina at [facility], for vestibular therapy. 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 She was found to have enlarged lymph node around C2. She gets dizzy with cervical mobility stretches and rotation right and left. She is here for myofascial work on her neck. She wonders what myofascial is. She had a massage in the past and it was not necessarily helpful. She has been seeing CELESTINO Molina for about 2.5 months. She is working on balance exericses, eye movements. She did have a little massage with Tracy and it went well. Tracy wanted pt to have myofascial massage. She has spasms and numbness left side of her face after ear surgery. She has droopiness in the left side of her lips. Her biggest area of spasm is left buccal area. She describes an involuntary Xu curve. 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 She states that her other vestibular is about finished. PT-OP-K Range of Motion Start: 02/16/19 07:27 Freq: Status: Active Protocol: Document 02/16/19 07:31 MB (Rec: 02/16/19 08:59 MB [id number]) Cervical Spine Range of Motion Cervical Spine Active Testing Position Standing Flexion 30 Extension 35 Rotation Left 31 Rotation Right 31 Lateral Flexion Left 15 Lateral Flexion Right 15 Comments Pt does not perform enough ROM to cause dizziness PT-OP-M Strength Start: 02/16/19 07:27 Freq: Status: Active Protocol: Document 02/16/19 07:31 MB (Rec: 02/16/19 08:59 MB [id number]) Shoulder Strength Shoulder Manual Muscle Testing Left Flexion 5 Normal Abduction (C5) 5 Normal Right Flexion 5 Normal Abduction (C5) 5 Normal Elbow/Forearm Strength Elbow and Forearm Manual Muscle Testing Left Flexion (C6) 5 Normal Extension (C7) 5 Normal Right Flexion (C6) 5 Normal Extension (C7) 5 Normal Wrist Strength Wrist Manual Muscle Testing Both Comments Deferred flexion, extension, supination and pronation MMT d /t ulnar bone changes PT-OP-Q Treatments Start: 02/16/19 07:27 Freq: Status: Active Protocol: Document 06/03/19 09:47 MB (Rec: 06/03/19 10:31 MB [id number]) Therapeutic Exercises Standing Exercises Shoulder ER and scapular retraction with level 1 band Comments 10 reps and added to HEP Manual Therapy Treatment Manual Techniques Counterstrain Comments Pt agrees to Counterstrain to assess and treat fascial restrictions and PT treats stacks: cranial nerves and ALL Neuro Re-Education Treatment Vestibular Rehabilitation DVA Eye chart VOR exercise Comments Letter E and pt to keep focus on it with small horizontal and vertical head turns. Pt can perform 10 sec both directions x2 and then reports tingling and heaviness in the back of her head PT-OP-T Assessment and Plan Start: 02/16/19 07:27 Freq: Status: Active Protocol: Document 06/03/19 09:47 MB (Rec: 06/03/19 10:31 MB [id number]) Physical Therapy Assessment Rehab Potential Rehabilitation Potential Fair Evaluation Complexity Number of Personal Factors/Comorbidities 1-2 Number of Body Systems Impaired 1-2 Clinical Presentation at Evaluation Evolving Impairments Impairments Balance,Integument,Pain, Posture,ROM,Soft Tissue Mobility,Strength,Vestibular Other Impairments Pain only after massage by vestibular PT Goals 4 Alf Goal (LTG) Pt will perform WNLs on FGA to decrease fall risk by 07/06/19. LTG Duration 8 weeks 3 Alf Goal (LTG) Pt will present with improved B cervical rotation to 60 deg, B SB to 25 deg to increase functional movement by 2019. 05/06/2019: Pt presents with right rotation 42 deg and left rotation 51 deg; right SB 25 deg and left 15 deg. LTG Duration 8 weeks 2 Alf Goal (LTG) Pt will perform HEP with I to improve dizziness by 07/06/2019. 05/06/20192: Pt has been performing few exercises given this by this PT as well as vestibular exercises from vestibular PT. Consider following eyes with thread the needle that she is doing LTG Duration 8 weeks 1 Impairment DHI reflects 54%, perception of severe handicap Plaster Lather Goal (LTG) Pt will present with a DHI reflecting no more than 45%, perception of moderate handicap by 07/06/2019. 05/06/2019: DHI is 54% and pt states that she can recognize her sxs more easily and this might affect score. LTG Duration 8 weeks Assessment Summary Assessment Initiated VOR and scapular and shoulder ER strengthening this date. Pt states that lying with legs bent and dropped to the left and head and neck neutral or to the right help left ear opening and drainage. Consider thoracic spine mobility and assessing arterial fascia Physical Therapy Plan Frequency and Duration Frequency of Treatment 2x/Week Duration of Treatment 8 weeks Plan of Care Start Date 05/06/19 Plan of Care End Date 07/06/19 Therapeutic Interventions Therapeutic Interventions Balance Training,Canalithic Repositioning,Home Exercise Program,Joint Mobilizations, Manual Therapy,Neuromuscular Re-education,Patient/Caregiver Education,Self-Care/Home Management,Soft Tissue Mobilization,Taping, Therapeutic Exercises, Vestibular Rehabilitation Modalities Cold Pack/Ice Massage,Electric Stimulation,Hot Packs, Ultrasound Next Visit Focus/Plan Next Note Type Treatment Note Next Visit Plan Con't progression, consider scapular strengthening, cervical isometric, pect and thoracic stretches
--- NOTE | 2019-06-12 08:59 | PT.OTN ---
Current Diagnoses Other peripheral vertigo, unspecified ear (06/12/19) Cervicalgia (06/12/19) Physical Therapy Treatment Note PT-OP-A Visit Information Start: 02/16/19 07:27 Freq: Status: Active Protocol: Document 06/12/19 08:16 MB (Rec: 06/12/19 08:57 MB [id number]) Out-Patient Physical Therapy Visit Information Visit Information Visit Type Treatment Note Visit Start Time 08:16 Visit Stop Time 08:58 Total Visit Minutes 42 Visit Number 09/07 PT-OP-B Current Condition Start: 02/16/19 07:27 Freq: Status: Active Protocol: Document 02/16/19 07:31 MB (Rec: 02/16/19 08:59 MB [id number]) Current Condition History of Current Condition Onset Date 2011 Current Complaints Dizziness with cervical rotation and manual work. 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 Her inner ear was spared and she has a drain. 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 She is seeing CELESTINO Molina at [facility], for vestibular therapy. 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 She was found to have enlarged lymph node around C2. She gets dizzy with cervical mobility stretches and rotation right and left. She is here for myofascial work on her neck. She wonders what myofascial is. She had a massage in the past and it was not necessarily helpful. She has been seeing CELESTINO Molina for about 2.5 months. She is working on balance exericses, eye movements. She did have a little massage with Tracy and it went well. Tracy wanted pt to have myofascial massage. She has spasms and numbness left side of her face after ear surgery. She has droopiness in the left side of her lips. Her biggest area of spasm is left buccal area. She describes an involuntary Xu curve. 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 Her neck and dizziness have not been bad. PT-OP-K Range of Motion Start: 02/16/19 07:27 Freq: Status: Active Protocol: Document 02/16/19 07:31 MB (Rec: 02/16/19 08:59 MB [id number]) Cervical Spine Range of Motion Cervical Spine Active Testing Position Standing Flexion 30 Extension 35 Rotation Left 31 Rotation Right 31 Lateral Flexion Left 15 Lateral Flexion Right 15 Comments Pt does not perform enough ROM to cause dizziness PT-OP-M Strength Start: 02/16/19 07:27 Freq: Status: Active Protocol: Document 02/16/19 07:31 MB (Rec: 02/16/19 08:59 MB [id number]) Shoulder Strength Shoulder Manual Muscle Testing Left Flexion 5 Normal Abduction (C5) 5 Normal Right Flexion 5 Normal Abduction (C5) 5 Normal Elbow/Forearm Strength Elbow and Forearm Manual Muscle Testing Left Flexion (C6) 5 Normal Extension (C7) 5 Normal Right Flexion (C6) 5 Normal Extension (C7) 5 Normal Wrist Strength Wrist Manual Muscle Testing Both Comments Deferred flexion, extension, supination and pronation MMT d /t ulnar bone changes PT-OP-Q Treatments Start: 02/16/19 07:27 Freq: Status: Active Protocol: Document 06/12/19 08:16 MB (Rec: 06/12/19 08:57 MB [id number]) Therapeutic Exercises Sidelying Exercises Open book Comments 4 reps B Standing Exercises Racquet ball massage Comments Intrascapular muscles Pect stretch Comments Doorway stretch, pect stretch with scapular retraction Manual Therapy Treatment Other Other Manual Treatments Rib recoil prone, whole thoracic spine B, scapular mobs, STM upper traps, MWM left infraspinatus and pt performing active ER and IR and PT putting pressure on trigger point PT-OP-T Assessment and Plan Start: 02/16/19 07:27 Freq: Status: Active Protocol: Document 06/12/19 08:16 MB (Rec: 06/12/19 08:57 MB [id number]) Physical Therapy Assessment Rehab Potential Rehabilitation Potential Fair Evaluation Complexity Number of Personal Factors/Comorbidities 1-2 Number of Body Systems Impaired 1-2 Clinical Presentation at Evaluation Evolving Impairments Impairments Balance,Integument,Pain, Posture,ROM,Soft Tissue Mobility,Strength,Vestibular Other Impairments Pain only after massage by vestibular PT Goals 4 Nursing Home Goal (LTG) Pt will perform WNLs on FGA to decrease fall risk by 07/06/19. LTG Duration 8 weeks 3 Nursing Home Goal (LTG) Pt will present with improved B cervical rotation to 60 deg, B SB to 25 deg to increase functional movement by 2019. 05/06/2019: Pt presents with right rotation 42 deg and left rotation 51 deg; right SB 25 deg and left 15 deg. LTG Duration 8 weeks 2 Nursing Home Goal (LTG) Pt will perform HEP with I to improve dizziness by 07/06/2019. 05/06/20192: Pt has been performing few exercises given this by this PT as well as vestibular exercises from vestibular PT. Consider following eyes with thread the needle that she is doing LTG Duration 8 weeks 1 Impairment DHI reflects 54%, perception of severe handicap Aquatics Director Goal (LTG) Pt will present with a DHI reflecting no more than 45%, perception of moderate handicap by 07/06/2019. 05/06/2019: DHI is 54% and pt states that she can recognize her sxs more easily and this might affect score. LTG Duration 8 weeks Assessment Summary Assessment Progressed thoracic mobility today. Physical Therapy Plan Frequency and Duration Frequency of Treatment 2x/Week Duration of Treatment 8 weeks Plan of Care Start Date 05/06/19 Plan of Care End Date 07/06/19 Therapeutic Interventions Therapeutic Interventions Balance Training,Canalithic Repositioning,Home Exercise Program,Joint Mobilizations, Manual Therapy,Neuromuscular Re-education,Patient/Caregiver Education,Self-Care/Home Management,Soft Tissue Mobilization,Taping, Therapeutic Exercises, Vestibular Rehabilitation Modalities Cold Pack/Ice Massage,Electric Stimulation,Hot Packs, Ultrasound Next Visit Focus/Plan Next Note Type Treatment Note Next Visit Plan Con't progression, consider progressing core exercises to support posture and ongoing thoracic mobility
--- NOTE | 2019-06-17 10:33 | PT.OTN ---
Current Diagnoses Other peripheral vertigo, unspecified ear (06/17/19) Cervicalgia (06/17/19) Physical Therapy Treatment Note PT-OP-A Visit Information Start: 02/16/19 07:27 Freq: Status: Active Protocol: Document 06/17/19 09:45 MB (Rec: 06/17/19 10:32 MB [id number]) Out-Patient Physical Therapy Visit Information Visit Information Visit Type Treatment Note Visit Start Time 09:45 Visit Stop Time 10:30 Total Visit Minutes 45 Visit Number 10/08 PT-OP-B Current Condition Start: 02/16/19 07:27 Freq: Status: Active Protocol: Document 02/16/19 07:31 MB (Rec: 02/16/19 08:59 MB [id number]) Current Condition History of Current Condition Onset Date 2011 Current Complaints Dizziness with cervical rotation and manual work. 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 Her inner ear was spared and she has a drain. 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 She is seeing CELESTINO Molina at [facility], for vestibular therapy. 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 She was found to have enlarged lymph node around C2. She gets dizzy with cervical mobility stretches and rotation right and left. She is here for myofascial work on her neck. She wonders what myofascial is. She had a massage in the past and it was not necessarily helpful. She has been seeing CELESTINO Molina for about 2.5 months. She is working on balance exericses, eye movements. She did have a little massage with Tracy and it went well. Tracy wanted pt to have myofascial massage. She has spasms and numbness left side of her face after ear surgery. She has droopiness in the left side of her lips. Her biggest area of spasm is left buccal area. She describes an involuntary Xu curve. 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 Her is sleep talking at night and it is keeping her up . PT-OP-K Range of Motion Start: 02/16/19 07:27 Freq: Status: Active Protocol: Document 02/16/19 07:31 MB (Rec: 02/16/19 08:59 MB [id number]) Cervical Spine Range of Motion Cervical Spine Active Testing Position Standing Flexion 30 Extension 35 Rotation Left 31 Rotation Right 31 Lateral Flexion Left 15 Lateral Flexion Right 15 Comments Pt does not perform enough ROM to cause dizziness PT-OP-M Strength Start: 02/16/19 07:27 Freq: Status: Active Protocol: Document 02/16/19 07:31 MB (Rec: 02/16/19 08:59 MB [id number]) Shoulder Strength Shoulder Manual Muscle Testing Left Flexion 5 Normal Abduction (C5) 5 Normal Right Flexion 5 Normal Abduction (C5) 5 Normal Elbow/Forearm Strength Elbow and Forearm Manual Muscle Testing Left Flexion (C6) 5 Normal Extension (C7) 5 Normal Right Flexion (C6) 5 Normal Extension (C7) 5 Normal Wrist Strength Wrist Manual Muscle Testing Both Comments Deferred flexion, extension, supination and pronation MMT d /t ulnar bone changes PT-OP-Q Treatments Start: 02/16/19 07:27 Freq: Status: Active Protocol: Document 06/17/19 09:45 MB (Rec: 06/17/19 10:32 MB [id number]) Manual Therapy Treatment Other Other Manual Treatments Suboccipital release, MWM left posterior scalene with pt performing active cervical rotation and PT providing trigger point pressure. Counterstrain to address fascial tension many systems and PT treats stacks: sinuvertebral cervical, thoracic, ALL cervical and spinous venous extension thoracic PT-OP-T Assessment and Plan Start: 02/16/19 07:27 Freq: Status: Active Protocol: Document 06/17/19 09:45 MB (Rec: 06/17/19 10:32 MB [id number]) Physical Therapy Assessment Rehab Potential Rehabilitation Potential Fair Evaluation Complexity Number of Personal Factors/Comorbidities 1-2 Number of Body Systems Impaired 1-2 Clinical Presentation at Evaluation Evolving Impairments Impairments Balance,Integument,Pain, Posture,ROM,Soft Tissue Mobility,Strength,Vestibular Other Impairments Pain only after massage by vestibular PT Goals 4 Senior Living Goal (LTG) Pt will perform WNLs on FGA to decrease fall risk by 07/06/19. LTG Duration 8 weeks 3 Park Maintainer Goal (LTG) Pt will present with improved B cervical rotation to 60 deg, B SB to 25 deg to increase functional movement by 2019. 05/06/2019: Pt presents with right rotation 42 deg and left rotation 51 deg; right SB 25 deg and left 15 deg. LTG Duration 8 weeks 2 Senior Living Goal (LTG) Pt will perform HEP with I to improve dizziness by 07/06/2019. 05/06/20192: Pt has been performing few exercises given this by this PT as well as vestibular exercises from vestibular PT. Consider following eyes with thread the needle that she is doing LTG Duration 8 weeks 1 Impairment DHI reflects 54%, perception of severe handicap Senior Living Goal (LTG) Pt will present with a DHI reflecting no more than 45%, perception of moderate handicap by 07/06/2019. 05/06/2019: DHI is 54% and pt states that she can recognize her sxs more easily and this might affect score. LTG Duration 8 weeks Assessment Summary Assessment Pt con't with fascial tension, most problems in thoracic spine. Consider teaching upper cervical isometrics, self- massage SCM, thoracic mobility . Physical Therapy Plan Frequency and Duration Frequency of Treatment 2x/Week Duration of Treatment 8 weeks Plan of Care Start Date 05/06/19 Plan of Care End Date 07/06/19 Therapeutic Interventions Therapeutic Interventions Balance Training,Canalithic Repositioning,Home Exercise Program,Joint Mobilizations, Manual Therapy,Neuromuscular Re-education,Patient/Caregiver Education,Self-Care/Home Management,Soft Tissue Mobilization,Taping, Therapeutic Exercises, Vestibular Rehabilitation Modalities Cold Pack/Ice Massage,Electric Stimulation,Hot Packs, Ultrasound Next Visit Focus/Plan Next Note Type Treatment Note Next Visit Plan Con't progression, consider progressing core exercises to support posture and ongoing thoracic mobility
--- NOTE | 2019-06-26 13:47 | PT.OTN ---
Current Diagnoses Other peripheral vertigo, unspecified ear (06/26/19) Cervicalgia (06/26/19) Physical Therapy Treatment Note PT-OP-A Visit Information Start: 02/16/19 07:27 Freq: Status: Active Protocol: Document 06/26/19 12:57 MB (Rec: 06/26/19 13:47 MB [id number]) Out-Patient Physical Therapy Visit Information Visit Information Visit Type Treatment Note Visit Start Time 12:57 Visit Stop Time 13:42 Total Visit Minutes 45 Visit Number 11/07 PT-OP-B Current Condition Start: 02/16/19 07:27 Freq: Status: Active Protocol: Document 02/16/19 07:31 MB (Rec: 02/16/19 08:59 MB [id number]) Current Condition History of Current Condition Onset Date 2011 Current Complaints Dizziness with cervical rotation and manual work. 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 Her inner ear was spared and she has a drain. 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 She is seeing CELESTINO Molina at [email or web address], for vestibular therapy. 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 She was found to have enlarged lymph node around C2. She gets dizzy with cervical mobility stretches and rotation right and left. She is here for myofascial work on her neck. She wonders what myofascial is. She had a massage in the past and it was not necessarily helpful. She has been seeing CELESTINO Molina for about 2.5 months. She is working on balance exericses, eye movements. She did have a little massage with Tracy and it went well. Tracy wanted pt to have myofascial massage. She has spasms and numbness left side of her face after ear surgery. She has droopiness in the left side of her lips. Her biggest area of spasm is left buccal area. She describes an involuntary Xu curve. 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 She is saw a dietition. She will con't with her current Metformin. Pt states that she went to her coating machine helper who states that the hole in her left ear drum closed up and she has to return to her neurotologist to get it opened up again in June. She does not have appointment. PT-OP-K Range of Motion Start: 02/16/19 07:27 Freq: Status: Active Protocol: Document 02/16/19 07:31 MB (Rec: 02/16/19 08:59 MB [id number]) Cervical Spine Range of Motion Cervical Spine Active Testing Position Standing Flexion 30 Extension 35 Rotation Left 31 Rotation Right 31 Lateral Flexion Left 15 Lateral Flexion Right 15 Comments Pt does not perform enough ROM to cause dizziness PT-OP-M Strength Start: 02/16/19 07:27 Freq: Status: Active Protocol: Document 02/16/19 07:31 MB (Rec: 02/16/19 08:59 MB [id number]) Shoulder Strength Shoulder Manual Muscle Testing Left Flexion 5 Normal Abduction (C5) 5 Normal Right Flexion 5 Normal Abduction (C5) 5 Normal Elbow/Forearm Strength Elbow and Forearm Manual Muscle Testing Left Flexion (C6) 5 Normal Extension (C7) 5 Normal Right Flexion (C6) 5 Normal Extension (C7) 5 Normal Wrist Strength Wrist Manual Muscle Testing Both Comments Deferred flexion, extension, supination and pronation MMT d /t ulnar bone changes PT-OP-Q Treatments Start: 02/16/19 07:27 Freq: Status: Active Protocol: Document 06/26/19 12:57 MB (Rec: 06/26/19 13:47 MB [id number]) Manual Therapy Treatment Manual Techniques Counterstrain Comments Pt agrees to Counterstrain to assess and treat fascial tension. She denies change in eye pressure. PT treats stacks : ALL cervical area, thoracic DPR, suboccipital release PT-OP-T Assessment and Plan Start: 02/16/19 07:27 Freq: Status: Active Protocol: Document 06/26/19 12:57 MB (Rec: 06/26/19 13:47 MB [id number]) Physical Therapy Assessment Rehab Potential Rehabilitation Potential Fair Evaluation Complexity Number of Personal Factors/Comorbidities 1-2 Number of Body Systems Impaired 1-2 Clinical Presentation at Evaluation Evolving Impairments Impairments Balance,Integument,Pain, Posture,ROM,Soft Tissue Mobility,Strength,Vestibular Other Impairments Pain only after massage by vestibular PT Goals 4 Invisible Braces Orthodontist Goal (LTG) Pt will perform WNLs on FGA to decrease fall risk by 07/06/19. LTG Duration 8 weeks 3 Invisible Braces Orthodontist Goal (LTG) Pt will present with improved B cervical rotation to 60 deg, B SB to 25 deg to increase functional movement by 2019. 05/06/2019: Pt presents with right rotation 42 deg and left rotation 51 deg; right SB 25 deg and left 15 deg. LTG Duration 8 weeks 2 Invisible Braces Orthodontist Goal (LTG) Pt will perform HEP with I to improve dizziness by 07/06/2019. 05/06/20192: Pt has been performing few exercises given this by this PT as well as vestibular exercises from vestibular PT. Consider following eyes with thread the needle that she is doing LTG Duration 8 weeks 1 Impairment DHI reflects 54%, perception of severe handicap Invisible Braces Orthodontist Goal (LTG) Pt will present with a DHI reflecting no more than 45%, perception of moderate handicap by 07/06/2019. 05/06/2019: DHI is 54% and pt states that she can recognize her sxs more easily and this might affect score. LTG Duration 8 weeks Assessment Summary Assessment Counterstrain today and hold until ear tube is put in. In future treatments, consider teaching upper cervical isometrics, self-massage SCM, thoracic mobility. Physical Therapy Plan Frequency and Duration Frequency of Treatment 2x/Week Duration of Treatment 8 weeks Plan of Care Start Date 05/06/19 Plan of Care End Date 07/06/19 Therapeutic Interventions Therapeutic Interventions Balance Training,Canalithic Repositioning,Home Exercise Program,Joint Mobilizations, Manual Therapy,Neuromuscular Re-education,Patient/Caregiver Education,Self-Care/Home Management,Soft Tissue Mobilization,Taping, Therapeutic Exercises, Vestibular Rehabilitation Modalities Cold Pack/Ice Massage,Electric Stimulation,Hot Packs, Ultrasound Hold Physical Therapy Reason For Hold Pt to get ear tube Next Visit Focus/Plan Next Note Type Progress Note Next Visit Plan Con't progression, consider progressing core exercises to support posture and ongoing thoracic mobility
--- NOTE | 2019-08-08 12:57 | PT-OP ANOTE ---
Pt's ear surgery was cancelled. She has been having a lot of pain and pressure. Her allergies are problematic. She will schedule appointments when clinic calls.
--- NOTE | 2019-08-22 15:52 | PT-OP ANOTE ---
PT calls pt. PT communicates that we do not know yet when clinic will reopen, that clinic hours will be limited to begin with, that therapists and patients will wear masks and that the gym situation will allow for 6 feet between patients. PT does communicate that PT has been providing manual care to patient and so pt and PT will be in nearer proximity. Pt communicates that she would like to con't with PT including manual care to assist her with her pain and dizziness issues.
--- NOTE | 2019-10-06 13:45 | PT.OTN ---
Current Diagnoses Other peripheral vertigo, unspecified ear (10/06/19) Cervicalgia (10/06/19) Physical Therapy Treatment Note PT-OP-A Visit Information Start: 02/16/19 07:27 Freq: Status: Active Protocol: Document 10/06/19 13:00 MB (Rec: 10/06/19 13:45 MB [id number]) Out-Patient Physical Therapy Visit Information Visit Information Visit Type Progress Note Visit Start Time 13:00 Visit Stop Time 13:45 Total Visit Minutes 45 Visit Number 12/08 PT-OP-B Current Condition Start: 02/16/19 07:27 Freq: Status: Active Protocol: Document 02/16/19 07:31 MB (Rec: 02/16/19 08:59 MB [id number]) Current Condition History of Current Condition Onset Date 2011 Current Complaints Dizziness with cervical rotation and manual work. 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 Her inner ear was spared and she has a drain. 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 She is seeing CELESTINO Molina at [facility], for vestibular therapy. 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 She was found to have enlarged lymph node around C2. She gets dizzy with cervical mobility stretches and rotation right and left. She is here for myofascial work on her neck. She wonders what myofascial is. She had a massage in the past and it was not necessarily helpful. She has been seeing CELESTINO Molina for about 2.5 months. She is working on balance exericses, eye movements. She did have a little massage with Tracy and it went well. Tracy wanted pt to have myofascial massage. She has spasms and numbness left side of her face after ear surgery. She has droopiness in the left side of her lips. Her biggest area of spasm is left buccal area. She describes an involuntary Xu curve. 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 She con't to have visual issues and states that the card stripper can only get her left eye to 20/25 and her right eye is 20/20. She will go to a vision therapist for this. She is going to have her cortisol levels checked to see if that is affecting her. Her goal is to be ready for cruise January 2021. PT-OP-K Range of Motion Start: 02/16/19 07:27 Freq: Status: Active Protocol: Document 02/16/19 07:31 MB (Rec: 02/16/19 08:59 MB [id number]) Cervical Spine Range of Motion Cervical Spine Active Testing Position Standing Flexion 30 Extension 35 Rotation Left 31 Rotation Right 31 Lateral Flexion Left 15 Lateral Flexion Right 15 Comments Pt does not perform enough ROM to cause dizziness PT-OP-M Strength Start: 02/16/19 07:27 Freq: Status: Active Protocol: Document 02/16/19 07:31 MB (Rec: 02/16/19 08:59 MB [id number]) Shoulder Strength Shoulder Manual Muscle Testing Left Flexion 5 Normal Abduction (C5) 5 Normal Right Flexion 5 Normal Abduction (C5) 5 Normal Elbow/Forearm Strength Elbow and Forearm Manual Muscle Testing Left Flexion (C6) 5 Normal Extension (C7) 5 Normal Right Flexion (C6) 5 Normal Extension (C7) 5 Normal Wrist Strength Wrist Manual Muscle Testing Both Comments Deferred flexion, extension, supination and pronation MMT d /t ulnar bone changes PT-OP-Q Treatments Start: 02/16/19 07:27 Freq: Status: Active Protocol: Document 10/06/19 13:00 MB (Rec: 10/06/19 13:45 MB [id number]) Therapeutic Exercises Other Exercises Reviewed HEP today and will add SCM MWM in the futture if helpful Other Exercise Name Performed this date: racquet ball, open book,doorway stretch, scap ret/ER Comments Pelvic realignment exercises, review SCM massage another day PT-OP-T Assessment and Plan Start: 02/16/19 07:27 Freq: Status: Active Protocol: Document 10/06/19 13:00 MB (Rec: 10/06/19 13:45 MB [id number]) Physical Therapy Assessment Rehab Potential Rehabilitation Potential Fair Evaluation Complexity Number of Personal Factors/Comorbidities 1-2 Number of Body Systems Impaired 1-2 Clinical Presentation at Evaluation Evolving Impairments Impairments Balance,Integument,Pain, Posture,ROM,Soft Tissue Mobility,Strength,Vestibular Goals 5 Impairment NDI score 28/50 Claims Technician Goal (LTG) Pt will present with improved NDI score to reflect no more than 15% impairment to reflect decreased neck pain by 2019. 4 Impairment FGA 02/25 Long-Term Goal (LTG) Pt will perform WNLs on FGA to decrease fall risk by 2019. 10/06/2019: Pt tends to walk with UEs up/guarded and this adds to shoulder elevation. LTG Duration 8 weeks 3 Long-Term Goal (LTG) Pt will present with improved B cervical rotation to 60 deg, B SB to 25 deg to increase functional movement by 2019. 10/06/2019: Pt presents with right rotation 50 deg and left rotation 45 deg; right SB 15 deg and left 15 deg. LTG Duration 8 weeks 2 Claims Technician Goal (LTG) Pt will perform HEP with I to improve dizziness by 12/06/2019. 10/06/2019: Pt has been performing exercises but not as consistently as she would like, things got tough before her ear surgery LTG Duration 8 weeks 1 Impairment DHI reflects 60%, perception of severe handicap Long-Term Goal (LTG) Pt will present with a DHI reflecting no more than 45%, perception of moderate handicap by 12/06/2019. 10/06/2019: DHI is 60% and pt states that she can recognize her sxs more easily and this might affect score. LTG Duration 8 weeks Assessment Summary Assessment Reviewed HEP handouts with pt today. Pt tends to walk in guarded pattern with UEs flexed upwards. Constant cues to let her arms dangle with gait and standing. Pt has been performing exercises intermittently since ear surgery. Her DHI score is slightly worse after surgery. She reports more neck discomfort since surgery. She states that dizziness looking up and reading are the worst. She has found out that she has eye problems and is going for visual therapy. She will benefit from PT to improve balance, cervical ROM, decrease pain and improve mobility and strength. In future treatments, consider teaching upper cervical isometrics, self-massage SCM, thoracic mobility. Physical Therapy Plan Frequency and Duration Frequency of Treatment 2x/Week Duration of Treatment 8 weeks Plan of Care Start Date 10/06/19 Plan of Care End Date 12/07/19 Therapeutic Interventions Therapeutic Interventions Balance Training,Canalithic Repositioning,Home Exercise Program,Joint Mobilizations, Manual Therapy,Neuromuscular Re-education,Patient/Caregiver Education,Self-Care/Home Management,Soft Tissue Mobilization,Taping, Therapeutic Exercises, Vestibular Rehabilitation Modalities Cold Pack/Ice Massage,Electric Stimulation,Hot Packs, Ultrasound Next Visit Focus/Plan Next Note Type Treatment Note Next Visit Plan Con't progression including balance, postural, core and thoracic mobility
--- NOTE | 2019-10-08 09:45 | PT.OTN ---
Current Diagnoses Other peripheral vertigo, unspecified ear (10/08/19) Cervicalgia (10/08/19) Physical Therapy Treatment Note PT-OP-A Visit Information Start: 02/16/19 07:27 Freq: Status: Active Protocol: Document 10/08/19 08:58 MB (Rec: 10/08/19 09:37 MB [id number]) Out-Patient Physical Therapy Visit Information Visit Information Visit Type Treatment Note Visit Start Time 08:58 Visit Stop Time 09:43 Total Visit Minutes 45 Visit Number 01/08 PT-OP-B Current Condition Start: 02/16/19 07:27 Freq: Status: Active Protocol: Document 02/16/19 07:31 MB (Rec: 02/16/19 08:59 MB [id number]) Current Condition History of Current Condition Onset Date 2011 Current Complaints Dizziness with cervical rotation and manual work. 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 Her inner ear was spared and she has a drain. 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 She is seeing CELESTINO Molina at [facility], for vestibular therapy. 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 She was found to have enlarged lymph node around C2. She gets dizzy with cervical mobility stretches and rotation right and left. She is here for myofascial work on her neck. She wonders what myofascial is. She had a massage in the past and it was not necessarily helpful. She has been seeing CELESTINO Molina for about 2.5 months. She is working on balance exericses, eye movements. She did have a little massage with Tracy and it went well. Tracy wanted pt to have myofascial massage. She has spasms and numbness left side of her face after ear surgery. She has droopiness in the left side of her lips. Her biggest area of spasm is left buccal area. She describes an involuntary Xu curve. 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 PT-OP-K Range of Motion Start: 02/16/19 07:27 Freq: Status: Active Protocol: Document 02/16/19 07:31 MB (Rec: 02/16/19 08:59 MB [id number]) Cervical Spine Range of Motion Cervical Spine Active Testing Position Standing Flexion 30 Extension 35 Rotation Left 31 Rotation Right 31 Lateral Flexion Left 15 Lateral Flexion Right 15 Comments Pt does not perform enough ROM to cause dizziness PT-OP-M Strength Start: 02/16/19 07:27 Freq: Status: Active Protocol: Document 02/16/19 07:31 MB (Rec: 02/16/19 08:59 MB [id number]) Shoulder Strength Shoulder Manual Muscle Testing Left Flexion 5 Normal Abduction (C5) 5 Normal Right Flexion 5 Normal Abduction (C5) 5 Normal Elbow/Forearm Strength Elbow and Forearm Manual Muscle Testing Left Flexion (C6) 5 Normal Extension (C7) 5 Normal Right Flexion (C6) 5 Normal Extension (C7) 5 Normal Wrist Strength Wrist Manual Muscle Testing Both Comments Deferred flexion, extension, supination and pronation MMT d /t ulnar bone changes PT-OP-Q Treatments Start: 02/16/19 07:27 Freq: Status: Active Protocol: Document 10/08/19 08:58 MB (Rec: 10/08/19 09:37 MB [id number]) Manual Therapy Treatment Manual Techniques Counterstrain Comments Pt agrees to Counterstrain to assess and treat fascial tension. Pt denies change in eye pressure. PT treats stacks : neural fascia trigeminal, facial, vagus and DPRs B. Suboccipital release PT-OP-T Assessment and Plan Start: 02/16/19 07:27 Freq: Status: Active Protocol: Document 10/08/19 08:58 MB (Rec: 10/08/19 09:37 MB [id number]) Physical Therapy Assessment Rehab Potential Rehabilitation Potential Fair Evaluation Complexity Number of Personal Factors/Comorbidities 1-2 Number of Body Systems Impaired 1-2 Clinical Presentation at Evaluation Evolving Impairments Impairments Balance,Integument,Pain, Posture,ROM,Soft Tissue Mobility,Strength,Vestibular Goals 5 Impairment NDI score 28/50 Head Pumper Goal (LTG) Pt will present with improved NDI score to reflect no more than 15% impairment to reflect decreased neck pain by 2019. 4 Impairment FGA 10 Detention Goal (LTG) Pt will perform WNLs on FGA to decrease fall risk by 2019. 10/06/2019: Pt tends to walk with UEs up/guarded and this adds to shoulder elevation. LTG Duration 8 weeks 3 Detention Goal (LTG) Pt will present with improved B cervical rotation to 60 deg, B SB to 25 deg to increase functional movement by 2019. 10/06/2019: Pt presents with right rotation 50 deg and left rotation 45 deg; right SB 15 deg and left 15 deg. LTG Duration 8 weeks 2 Head Pumper Goal (LTG) Pt will perform HEP with I to improve dizziness by 12/06/2019. 10/06/2019: Pt has been performing exercises but not as consistently as she would like, things got tough before her ear surgery LTG Duration 8 weeks 1 Impairment DHI reflects 60%, perception of severe handicap Head Pumper Goal (LTG) Pt will present with a DHI reflecting no more than 45%, perception of moderate handicap by 12/06/2019. 10/06/2019: DHI is 60% and pt states that she can recognize her sxs more easily and this might affect score. LTG Duration 8 weeks Assessment Summary Assessment Pt presents with increased fascial neural fascial tension in her head, likely related to multiple changes including recent left ear procedure. She responds well to Counterstrain. In future treatments, consider teaching upper cervical isometrics, self-massage SCM, thoracic mobility. Physical Therapy Plan Frequency and Duration Frequency of Treatment 2x/Week Duration of Treatment 8 weeks Plan of Care Start Date 10/06/19 Plan of Care End Date 12/07/19 Therapeutic Interventions Therapeutic Interventions Balance Training,Canalithic Repositioning,Home Exercise Program,Joint Mobilizations, Manual Therapy,Neuromuscular Re-education,Patient/Caregiver Education,Self-Care/Home Management,Soft Tissue Mobilization,Taping, Therapeutic Exercises, Vestibular Rehabilitation Modalities Cold Pack/Ice Massage,Electric Stimulation,Hot Packs, Ultrasound Next Visit Focus/Plan Next Note Type Treatment Note Next Visit Plan Con't progression including balance, postural, core and thoracic mobility, con't manual work as needed
--- NOTE | 2019-10-12 08:58 | PT.OTN ---
Current Diagnoses Other peripheral vertigo, unspecified ear (10/12/19) Cervicalgia (10/12/19) Physical Therapy Treatment Note PT-OP-A Visit Information Start: 02/16/19 07:27 Freq: Status: Active Protocol: Document 10/12/19 08:17 MB (Rec: 10/12/19 08:47 MB [id number]) Out-Patient Physical Therapy Visit Information Visit Information Visit Type Treatment Note Visit Start Time 08:17 Visit Stop Time 09:00 Total Visit Minutes 43 Visit Number 02/07 PT-OP-B Current Condition Start: 02/16/19 07:27 Freq: Status: Active Protocol: Document 02/16/19 07:31 MB (Rec: 02/16/19 08:59 MB [id number]) Current Condition History of Current Condition Onset Date 2011 Current Complaints Dizziness with cervical rotation and manual work. 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 Her inner ear was spared and she has a drain. 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 She is seeing CELESTINO Molina at [facility], for vestibular therapy. 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 She was found to have enlarged lymph node around C2. She gets dizzy with cervical mobility stretches and rotation right and left. She is here for myofascial work on her neck. She wonders what myofascial is. She had a massage in the past and it was not necessarily helpful. She has been seeing CELESTINO Molina for about 2.5 months. She is working on balance exericses, eye movements. She did have a little massage with Tracy and it went well. Tracy wanted pt to have myofascial massage. She has spasms and numbness left side of her face after ear surgery. She has droopiness in the left side of her lips. Her biggest area of spasm is left buccal area. She describes an involuntary Ux curve. 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 She is doing diaphragmatic breathing when she has increased symptoms in her diaphragm and pacreas. She has a stabbing pain occ and a suctioning pain sometimes. PT-OP-K Range of Motion Start: 02/16/19 07:27 Freq: Status: Active Protocol: Document 02/16/19 07:31 MB (Rec: 02/16/19 08:59 MB [id number]) Cervical Spine Range of Motion Cervical Spine Active Testing Position Standing Flexion 30 Extension 35 Rotation Left 31 Rotation Right 31 Lateral Flexion Left 15 Lateral Flexion Right 15 Comments Pt does not perform enough ROM to cause dizziness PT-OP-M Strength Start: 02/16/19 07:27 Freq: Status: Active Protocol: Document 02/16/19 07:31 MB (Rec: 02/16/19 08:59 MB [id number]) Shoulder Strength Shoulder Manual Muscle Testing Left Flexion 5 Normal Abduction (C5) 5 Normal Right Flexion 5 Normal Abduction (C5) 5 Normal Elbow/Forearm Strength Elbow and Forearm Manual Muscle Testing Left Flexion (C6) 5 Normal Extension (C7) 5 Normal Right Flexion (C6) 5 Normal Extension (C7) 5 Normal Wrist Strength Wrist Manual Muscle Testing Both Comments Deferred flexion, extension, supination and pronation MMT d /t ulnar bone changes PT-OP-Q Treatments Start: 02/16/19 07:27 Freq: Status: Active Protocol: Document 10/12/19 08:17 MB (Rec: 10/12/19 08:47 MB [id number]) Therapeutic Exercises Supine Exercises Diaphragmatic breathing Comments Performed today during manual release today by PT EFT Comments Performed today with positional release by PT Manual Therapy Treatment Manual Techniques Counterstrain Comments Fascial passive release rectus abdominus, diaphragm, hip flexors, pt performing diaphragmatic breathing PT-OP-T Assessment and Plan Start: 02/16/19 07:27 Freq: Status: Active Protocol: Document 10/12/19 08:17 MB (Rec: 10/12/19 08:47 MB [id number]) Physical Therapy Assessment Rehab Potential Rehabilitation Potential Fair Evaluation Complexity Number of Personal Factors/Comorbidities 1-2 Number of Body Systems Impaired 1-2 Clinical Presentation at Evaluation Evolving Impairments Impairments Balance,Integument,Pain, Posture,ROM,Soft Tissue Mobility,Strength,Vestibular Goals 5 Impairment NDI score 28/50 [facility] Goal (LTG) Pt will present with improved NDI score to reflect no more than 15% impairment to reflect decreased neck pain by 2019. 4 Impairment FGA 02/25 Warehouse Coordinator Goal (LTG) Pt will perform WNLs on FGA to decrease fall risk by 2019. 10/06/2019: Pt tends to walk with UEs up/guarded and this adds to shoulder elevation. LTG Duration 8 weeks 3 Warehouse Coordinator Goal (LTG) Pt will present with improved B cervical rotation to 60 deg, B SB to 25 deg to increase functional movement by 2019. 10/06/2019: Pt presents with right rotation 50 deg and left rotation 45 deg; right SB 15 deg and left 15 deg. LTG Duration 8 weeks 2 Warehouse Coordinator Goal (LTG) Pt will perform HEP with I to improve dizziness by 12/06/2019. 10/06/2019: Pt has been performing exercises but not as consistently as she would like, things got tough before her ear surgery LTG Duration 8 weeks 1 Impairment DHI reflects 60%, perception of severe handicap Warehouse Coordinator Goal (LTG) Pt will present with a DHI reflecting no more than 45%, perception of moderate handicap by 12/06/2019. 10/06/2019: DHI is 60% and pt states that she can recognize her sxs more easily and this might affect score. LTG Duration 8 weeks Assessment Summary Assessment Pt presents with anxiety about flying 1 year from now before [place]. She performs EFT as PT works on diaphragm with passive release today. Con't to monitor. Ongoing efforts to improve vagus stimulation and parasympathetic response. In future treatments, consider teaching upper cervical isometrics, self-massage SCM, thoracic mobility. Physical Therapy Plan Frequency and Duration Frequency of Treatment 2x/Week Duration of Treatment 8 weeks Plan of Care Start Date 10/06/19 Plan of Care End Date 12/07/19 Therapeutic Interventions Therapeutic Interventions Balance Training,Canalithic Repositioning,Home Exercise Program,Joint Mobilizations, Manual Therapy,Neuromuscular Re-education,Patient/Caregiver Education,Self-Care/Home Management,Soft Tissue Mobilization,Taping, Therapeutic Exercises, Vestibular Rehabilitation Modalities Cold Pack/Ice Massage,Electric Stimulation,Hot Packs, Ultrasound Next Visit Focus/Plan Next Note Type Treatment Note Next Visit Plan Con't progression including balance, postural, core and thoracic mobility, con't manual work as needed
--- NOTE | 2019-10-15 08:12 | PT.OTN ---
Current Diagnoses Other peripheral vertigo, unspecified ear (10/15/19) Cervicalgia (10/15/19) Physical Therapy Treatment Note PT-OP-A Visit Information Start: 02/16/19 07:27 Freq: Status: Active Protocol: Document 10/15/19 07:30 MB (Rec: 10/15/19 07:59 MB [id number]) Out-Patient Physical Therapy Visit Information Visit Information Visit Type Treatment Note Visit Start Time 07:30 Visit Stop Time 08:12 Total Visit Minutes 42 Visit Number 03/10 PT-OP-B Current Condition Start: 02/16/19 07:27 Freq: Status: Active Protocol: Document 02/16/19 07:31 MB (Rec: 02/16/19 08:59 MB [id number]) Current Condition History of Current Condition Onset Date 2011 Current Complaints Dizziness with cervical rotation and manual work. 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 Her inner ear was spared and she has a drain. 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 She is seeing CELESTINO Molina at [facility], for vestibular therapy. 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 She was found to have enlarged lymph node around C2. She gets dizzy with cervical mobility stretches and rotation right and left. She is here for myofascial work on her neck. She wonders what myofascial is. She had a massage in the past and it was not necessarily helpful. She has been seeing CELESTINO Molina for about 2.5 months. She is working on balance exericses, eye movements. She did have a little massage with Tracy and it went well. Tracy wanted pt to have myofascial massage. She has spasms and numbness left side of her face after ear surgery. She has droopiness in the left side of her lips. Her biggest area of spasm is left buccal area. She describes an involuntary Xu curve. 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 She is performing this on herself when she is anxious. PT-OP-K Range of Motion Start: 02/16/19 07:27 Freq: Status: Active Protocol: Document 02/16/19 07:31 MB (Rec: 02/16/19 08:59 MB [id number]) Cervical Spine Range of Motion Cervical Spine Active Testing Position Standing Flexion 30 Extension 35 Rotation Left 31 Rotation Right 31 Lateral Flexion Left 15 Lateral Flexion Right 15 Comments Pt does not perform enough ROM to cause dizziness PT-OP-M Strength Start: 02/16/19 07:27 Freq: Status: Active Protocol: Document 02/16/19 07:31 MB (Rec: 02/16/19 08:59 MB [id number]) Shoulder Strength Shoulder Manual Muscle Testing Left Flexion 5 Normal Abduction (C5) 5 Normal Right Flexion 5 Normal Abduction (C5) 5 Normal Elbow/Forearm Strength Elbow and Forearm Manual Muscle Testing Left Flexion (C6) 5 Normal Extension (C7) 5 Normal Right Flexion (C6) 5 Normal Extension (C7) 5 Normal Wrist Strength Wrist Manual Muscle Testing Both Comments Deferred flexion, extension, supination and pronation MMT d /t ulnar bone changes PT-OP-Q Treatments Start: 02/16/19 07:27 Freq: Status: Active Protocol: Document 10/15/19 07:30 MB (Rec: 10/15/19 07:59 MB [id number]) Therapeutic Exercises Sitting Exercises Sitting on therapy ball Comments Gentle pelvic movement to move sacrum and help posture Manual Therapy Treatment Manual Techniques Supine manual work Comments Gentle first rib mobs-- isometric B, suboccipital release Prone manual work Comments Prone rib recoil, positional release B glutes and sacrum, positional release B QL PT-OP-T Assessment and Plan Start: 02/16/19 07:27 Freq: Status: Active Protocol: Document 10/15/19 07:30 MB (Rec: 10/15/19 07:59 MB [id number]) Physical Therapy Assessment Rehab Potential Rehabilitation Potential Fair Evaluation Complexity Number of Personal Factors/Comorbidities 1-2 Number of Body Systems Impaired 1-2 Clinical Presentation at Evaluation Evolving Impairments Impairments Balance,Integument,Pain, Posture,ROM,Soft Tissue Mobility,Strength,Vestibular Goals 5 Impairment NDI score 28/50 Section Repairer Goal (LTG) Pt will present with improved NDI score to reflect no more than 15% impairment to reflect decreased neck pain by 2019. 4 Impairment FGA 02/25 Section Repairer Goal (LTG) Pt will perform WNLs on FGA to decrease fall risk by 2019. 10/06/2019: Pt tends to walk with UEs up/guarded and this adds to shoulder elevation. LTG Duration 8 weeks 3 Section Repairer Goal (LTG) Pt will present with improved B cervical rotation to 60 deg, B SB to 25 deg to increase functional movement by 2019. 10/06/2019: Pt presents with right rotation 50 deg and left rotation 45 deg; right SB 15 deg and left 15 deg. LTG Duration 8 weeks 2 Section Repairer Goal (LTG) Pt will perform HEP with I to improve dizziness by 12/06/2019. 10/06/2019: Pt has been performing exercises but not as consistently as she would like, things got tough before her ear surgery LTG Duration 8 weeks 1 Impairment DHI reflects 60%, perception of severe handicap Fpc Goal (LTG) Pt will present with a DHI reflecting no more than 45%, perception of moderate handicap by 12/06/2019. 10/06/2019: DHI is 60% and pt states that she can recognize her sxs more easily and this might affect score. LTG Duration 8 weeks Assessment Summary Assessment Initiated further manual work today to improve postural flexibility. Also ed pt in sitting on ball at home and gentle pelvic movement. In future treatments, consider teaching upper cervical isometrics, self-massage SCM, thoracic mobility. Physical Therapy Plan Frequency and Duration Frequency of Treatment 2x/Week Duration of Treatment 8 weeks Plan of Care Start Date 10/06/19 Plan of Care End Date 12/07/19 Therapeutic Interventions Therapeutic Interventions Balance Training,Canalithic Repositioning,Home Exercise Program,Joint Mobilizations, Manual Therapy,Neuromuscular Re-education,Patient/Caregiver Education,Self-Care/Home Management,Soft Tissue Mobilization,Taping, Therapeutic Exercises, Vestibular Rehabilitation Modalities Cold Pack/Ice Massage,Electric Stimulation,Hot Packs, Ultrasound Next Visit Focus/Plan Next Note Type Treatment Note Next Visit Plan Con't progression including balance, postural, core and thoracic mobility, con't manual work as needed
--- NOTE | 2019-10-19 10:27 | PT.OTN ---
Current Diagnoses Other peripheral vertigo, unspecified ear (10/19/19) Cervicalgia (10/19/19) Physical Therapy Treatment Note PT-OP-A Visit Information Start: 02/16/19 07:27 Freq: Status: Active Protocol: Document 10/19/19 09:42 MB (Rec: 10/19/19 10:27 MB [id number]) Out-Patient Physical Therapy Visit Information Visit Information Visit Type Treatment Note Visit Start Time 09:42 Visit Stop Time 10:26 Total Visit Minutes 44 Visit Number 04/09 PT-OP-B Current Condition Start: 02/16/19 07:27 Freq: Status: Active Protocol: Document 02/16/19 07:31 MB (Rec: 02/16/19 08:59 MB [id number]) Current Condition History of Current Condition Onset Date 2011 Current Complaints Dizziness with cervical rotation and manual work. 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 Her inner ear was spared and she has a drain. 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 She is seeing CELESTINO Molina at [facility], for vestibular therapy. 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 She was found to have enlarged lymph node around C2. She gets dizzy with cervical mobility stretches and rotation right and left. She is here for myofascial work on her neck. She wonders what myofascial is. She had a massage in the past and it was not necessarily helpful. She has been seeing CELESTINO Molina for about 2.5 months. She is working on balance exericses, eye movements. She did have a little massage with Tracy and it went well. Tracy wanted pt to have myofascial massage. She has spasms and numbness left side of her face after ear surgery. She has droopiness in the left side of her lips. Her biggest area of spasm is left buccal area. She describes an involuntary Xu curve. 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 Pt has started sitting on therapy ball and moving pelvis, she is doing open book, cat/cow. PT-OP-K Range of Motion Start: 02/16/19 07:27 Freq: Status: Active Protocol: Document 02/16/19 07:31 MB (Rec: 02/16/19 08:59 MB [id number]) Cervical Spine Range of Motion Cervical Spine Active Testing Position Standing Flexion 30 Extension 35 Rotation Left 31 Rotation Right 31 Lateral Flexion Left 15 Lateral Flexion Right 15 Comments Pt does not perform enough ROM to cause dizziness PT-OP-M Strength Start: 02/16/19 07:27 Freq: Status: Active Protocol: Document 02/16/19 07:31 MB (Rec: 02/16/19 08:59 MB [id number]) Shoulder Strength Shoulder Manual Muscle Testing Left Flexion 5 Normal Abduction (C5) 5 Normal Right Flexion 5 Normal Abduction (C5) 5 Normal Elbow/Forearm Strength Elbow and Forearm Manual Muscle Testing Left Flexion (C6) 5 Normal Extension (C7) 5 Normal Right Flexion (C6) 5 Normal Extension (C7) 5 Normal Wrist Strength Wrist Manual Muscle Testing Both Comments Deferred flexion, extension, supination and pronation MMT d /t ulnar bone changes PT-OP-Q Treatments Start: 02/16/19 07:27 Freq: Status: Active Protocol: Document 10/19/19 09:42 MB (Rec: 10/19/19 10:27 MB [id number]) Therapeutic Exercises Supine Exercises Buteyko breathing Supine Exercise Name Education and ed Reps/Minutes 5 reps total, see some results below Comments HR 93, O2 98% rest; 10 sec; 9 sec HR 92-93 O2 same Diaphragmatic breathing Comments Performed today during diaphragm work Manual Therapy Treatment Manual Techniques Counterstrain Comments Fascial passive release rectus abdominus, diaphragm, hip flexors, pt performing diaphragmatic breathing PT-OP-T Assessment and Plan Start: 02/16/19 07:27 Freq: Status: Active Protocol: Document 10/19/19 09:42 MB (Rec: 10/19/19 10:27 MB [id number]) Physical Therapy Assessment Rehab Potential Rehabilitation Potential Fair Evaluation Complexity Number of Personal Factors/Comorbidities 1-2 Number of Body Systems Impaired 1-2 Clinical Presentation at Evaluation Evolving Impairments Impairments Balance,Integument,Pain, Posture,ROM,Soft Tissue Mobility,Strength,Vestibular Goals 5 Impairment NDI score 28/50 Residential Goal (LTG) Pt will present with improved NDI score to reflect no more than 15% impairment to reflect decreased neck pain by 2019. 4 Impairment FGA 02/25 Residential Goal (LTG) Pt will perform WNLs on FGA to decrease fall risk by 2019. 10/06/2019: Pt tends to walk with UEs up/guarded and this adds to shoulder elevation. LTG Duration 8 weeks 3 Coroner'S Juror Goal (LTG) Pt will present with improved B cervical rotation to 60 deg, B SB to 25 deg to increase functional movement by 2019. 10/06/2019: Pt presents with right rotation 50 deg and left rotation 45 deg; right SB 15 deg and left 15 deg. LTG Duration 8 weeks 2 Coroner'S Juror Goal (LTG) Pt will perform HEP with I to improve dizziness by 12/06/2019. 10/06/2019: Pt has been performing exercises but not as consistently as she would like, things got tough before her ear surgery LTG Duration 8 weeks 1 Impairment DHI reflects 60%, perception of severe handicap Coroner'S Juror Goal (LTG) Pt will present with a DHI reflecting no more than 45%, perception of moderate handicap by 12/06/2019. 10/06/2019: DHI is 60% and pt states that she can recognize her sxs more easily and this might affect score. LTG Duration 8 weeks Assessment Summary Assessment Initiated Ash education and training today to help improve parasympatic response and possible assist with ear fullness. Will monitor. Progressed to 15-18 sec hold and reports decreased anxiety with breathing. Her HR decreased to 88 BPM after breathing, indicative of good parasympathetic response. Progress sinus and nostril breathing in future treatments . In future treatments, consider teaching upper cervical isometrics, self- massage SCM, thoracic mobility . Physical Therapy Plan Frequency and Duration Frequency of Treatment 2x/Week Duration of Treatment 8 weeks Plan of Care Start Date 10/06/19 Plan of Care End Date 12/07/19 Therapeutic Interventions Therapeutic Interventions Balance Training,Canalithic Repositioning,Home Exercise Program,Joint Mobilizations, Manual Therapy,Neuromuscular Re-education,Patient/Caregiver Education,Self-Care/Home Management,Soft Tissue Mobilization,Taping, Therapeutic Exercises, Vestibular Rehabilitation Modalities Cold Pack/Ice Massage,Electric Stimulation,Hot Packs, Ultrasound Next Visit Focus/Plan Next Note Type Treatment Note Next Visit Plan Con't progression including balance, postural, core and thoracic mobility, con't manual work as needed
--- NOTE | 2019-10-26 10:33 | PT.OTN ---
Current Diagnoses Other peripheral vertigo, unspecified ear (10/26/19) Cervicalgia (10/26/19) Physical Therapy Treatment Note PT-OP-A Visit Information Start: 02/16/19 07:27 Freq: Status: Active Protocol: Document 10/26/19 09:46 MB (Rec: 10/26/19 10:33 MB [id number]) Out-Patient Physical Therapy Visit Information Visit Information Visit Type Treatment Note Visit Note At 05/10 on new auth Visit Start Time 09:46 Visit Stop Time 10:30 Total Visit Minutes 44 Visit Number 09/05 PT-OP-B Current Condition Start: 02/16/19 07:27 Freq: Status: Active Protocol: Document 02/16/19 07:31 MB (Rec: 02/16/19 08:59 MB [id number]) Current Condition History of Current Condition Onset Date 2011 Current Complaints Dizziness with cervical rotation and manual work. 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 Her inner ear was spared and she has a drain. 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 She is seeing CELESTINO Molina at [facility], for vestibular therapy. 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 She was found to have enlarged lymph node around C2. She gets dizzy with cervical mobility stretches and rotation right and left. She is here for myofascial work on her neck. She wonders what myofascial is. She had a massage in the past and it was not necessarily helpful. She has been seeing CELESTINO Molina for about 2.5 months. She is working on balance exericses, eye movements. She did have a little massage with Tracy and it went well. Tracy wanted pt to have myofascial massage. She has spasms and numbness left side of her face after ear surgery. She has droopiness in the left side of her lips. Her biggest area of spasm is left buccal area. She describes an involuntary Xu curve. 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 PT-OP-K Range of Motion Start: 02/16/19 07:27 Freq: Status: Active Protocol: Document 02/16/19 07:31 MB (Rec: 02/16/19 08:59 MB [id number]) Cervical Spine Range of Motion Cervical Spine Active Testing Position Standing Flexion 30 Extension 35 Rotation Left 31 Rotation Right 31 Lateral Flexion Left 15 Lateral Flexion Right 15 Comments Pt does not perform enough ROM to cause dizziness PT-OP-M Strength Start: 02/16/19 07:27 Freq: Status: Active Protocol: Document 02/16/19 07:31 MB (Rec: 02/16/19 08:59 MB [id number]) Shoulder Strength Shoulder Manual Muscle Testing Left Flexion 5 Normal Abduction (C5) 5 Normal Right Flexion 5 Normal Abduction (C5) 5 Normal Elbow/Forearm Strength Elbow and Forearm Manual Muscle Testing Left Flexion (C6) 5 Normal Extension (C7) 5 Normal Right Flexion (C6) 5 Normal Extension (C7) 5 Normal Wrist Strength Wrist Manual Muscle Testing Both Comments Deferred flexion, extension, supination and pronation MMT d /t ulnar bone changes PT-OP-Q Treatments Start: 02/16/19 07:27 Freq: Status: Active Protocol: Document 10/26/19 09:46 MB (Rec: 10/26/19 10:33 MB [id number]) Therapeutic Exercises Supine Exercises Buteyko breathing Supine Exercise Name Sinus decongestion and 1 nostril breathing today Reps/Minutes 5 reps sinus decongestion, L block nostril first, nostrils stay congested Manual Therapy Treatment Other Other Manual Treatments B rib recoil for rib mobility and QL mobility PT-OP-T Assessment and Plan Start: 02/16/19 07:27 Freq: Status: Active Protocol: Document 10/26/19 09:46 MB (Rec: 10/26/19 10:33 [id number]) Physical Therapy Assessment Rehab Potential Rehabilitation Potential Fair Evaluation Complexity Number of Personal Factors/Comorbidities 1-2 Number of Body Systems Impaired 1-2 Clinical Presentation at Evaluation Evolving Impairments Impairments Balance,Integument,Pain, Posture,ROM,Soft Tissue Mobility,Strength,Vestibular Goals 5 Impairment NDI score 28/50 Correction Goal (LTG) Pt will present with improved NDI score to reflect no more than 15% impairment to reflect decreased neck pain by 2019. 4 Impairment FGA 02/25 Correction Goal (LTG) Pt will perform WNLs on FGA to decrease fall risk by 2019. 10/06/2019: Pt tends to walk with UEs up/guarded and this adds to shoulder elevation. LTG Duration 8 weeks 3 Correction Goal (LTG) Pt will present with improved B cervical rotation to 60 deg, B SB to 25 deg to increase functional movement by 2019. 10/06/2019: Pt presents with right rotation 50 deg and left rotation 45 deg; right SB 15 deg and left 15 deg. LTG Duration 8 weeks 2 Correction Goal (LTG) Pt will perform HEP with I to improve dizziness by 12/06/2019. 10/06/2019: Pt has been performing exercises but not as consistently as she would like, things got tough before her ear surgery LTG Duration 8 weeks 1 Impairment DHI reflects 60%, perception of severe handicap Correction Goal (LTG) Pt will present with a DHI reflecting no more than 45%, perception of moderate handicap by 12/06/2019. 10/06/2019: DHI is 60% and pt states that she can recognize her sxs more easily and this might affect score. LTG Duration 8 weeks Assessment Summary Assessment Progressed Buteyko exercises today to help improve parasympatic response and possible assist with ear fullness and sinus pressure. In future treatments, consider teaching upper cervical isometrics, self-massage SCM, thoracic mobility. Physical Therapy Plan Frequency and Duration Frequency of Treatment 2x/Week Duration of Treatment 8 weeks Plan of Care Start Date 10/06/19 Plan of Care End Date 12/07/19 Therapeutic Interventions Therapeutic Interventions Balance Training,Canalithic Repositioning,Home Exercise Program,Joint Mobilizations, Manual Therapy,Neuromuscular Re-education,Patient/Caregiver Education,Self-Care/Home Management,Soft Tissue Mobilization,Taping, Therapeutic Exercises, Vestibular Rehabilitation Modalities Cold Pack/Ice Massage,Electric Stimulation,Hot Packs, Ultrasound Next Visit Focus/Plan Next Note Type Treatment Note Next Visit Plan Con't progression including balance, postural, core and thoracic mobility, con't manual work as needed
--- NOTE | 2019-11-02 10:19 | PT.OTN ---
Current Diagnoses Other peripheral vertigo, unspecified ear (11/02/19) Cervicalgia (11/02/19) Physical Therapy Treatment Note PT-OP-A Visit Information Start: 02/16/19 07:27 Freq: Status: Active Protocol: Document 11/02/19 09:48 MB (Rec: 11/02/19 10:18 MB [id number]) Out-Patient Physical Therapy Visit Information Visit Information Visit Type Treatment Note Visit Note Today, 05/10 for auth Visit Start Time 09:48 Visit Stop Time 10:20 Total Visit Minutes 32 Visit Number 10/06 PT-OP-B Current Condition Start: 02/16/19 07:27 Freq: Status: Active Protocol: Document 02/16/19 07:31 MB (Rec: 02/16/19 08:59 MB [id number]) Current Condition History of Current Condition Onset Date 2011 Current Complaints Dizziness with cervical rotation and manual work. 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 Her inner ear was spared and she has a drain. 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 She is seeing CELESTINO Molina at [facility], for vestibular therapy. 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 She was found to have enlarged lymph node around C2. She gets dizzy with cervical mobility stretches and rotation right and left. She is here for myofascial work on her neck. She wonders what myofascial is. She had a massage in the past and it was not necessarily helpful. She has been seeing CELESTINO Molina for about 2.5 months. She is working on balance exericses, eye movements. She did have a little massage with Tracy and it went well. Tracy wanted pt to have myofascial massage. She has spasms and numbness left side of her face after ear surgery. She has droopiness in the left side of her lips. Her biggest area of spasm is left buccal area. She describes an involuntary Xu curve. 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 She is performing pelvic realigment exercise. Thoracic work with PT has been helpful. PT-OP-K Range of Motion Start: 02/16/19 07:27 Freq: Status: Active Protocol: Document 02/16/19 07:31 MB (Rec: 02/16/19 08:59 MB [id number]) Cervical Spine Range of Motion Cervical Spine Active Testing Position Standing Flexion 30 Extension 35 Rotation Left 31 Rotation Right 31 Lateral Flexion Left 15 Lateral Flexion Right 15 Comments Pt does not perform enough ROM to cause dizziness PT-OP-M Strength Start: 02/16/19 07:27 Freq: Status: Active Protocol: Document 02/16/19 07:31 MB (Rec: 02/16/19 08:59 MB [id number]) Shoulder Strength Shoulder Manual Muscle Testing Left Flexion 5 Normal Abduction (C5) 5 Normal Right Flexion 5 Normal Abduction (C5) 5 Normal Elbow/Forearm Strength Elbow and Forearm Manual Muscle Testing Left Flexion (C6) 5 Normal Extension (C7) 5 Normal Right Flexion (C6) 5 Normal Extension (C7) 5 Normal Wrist Strength Wrist Manual Muscle Testing Both Comments Deferred flexion, extension, supination and pronation MMT d /t ulnar bone changes PT-OP-Q Treatments Start: 02/16/19 07:27 Freq: Status: Active Protocol: Document 11/02/19 09:48 MB (Rec: 11/02/19 10:18 MB [id number]) Manual Therapy Treatment Manual Techniques Counterstrain Comments Fascial passive release rectus abdominus B, diaphragm, pt performing diaphragmatic breathing PT-OP-T Assessment and Plan Start: 02/16/19 07:27 Freq: Status: Active Protocol: Document 11/02/19 09:48 MB (Rec: 11/02/19 10:18 MB [id number]) Physical Therapy Assessment Rehab Potential Rehabilitation Potential Fair Evaluation Complexity Number of Personal Factors/Comorbidities 1-2 Number of Body Systems Impaired 1-2 Clinical Presentation at Evaluation Evolving Impairments Impairments Balance,Integument,Pain, Posture,ROM,Soft Tissue Mobility,Strength,Vestibular Goals 5 Impairment NDI score 28/50 Director Telehealth Goal (LTG) Pt will present with improved NDI score to reflect no more than 15% impairment to reflect decreased neck pain by 2019. 4 Impairment FGA 10/30 Retirement Goal (LTG) Pt will perform WNLs on FGA to decrease fall risk by 2019. 10/06/2019: Pt tends to walk with UEs up/guarded and this adds to shoulder elevation. LTG Duration 8 weeks 3 Retirement Goal (LTG) Pt will present with improved B cervical rotation to 60 deg, B SB to 25 deg to increase functional movement by 2019. 10/06/2019: Pt presents with right rotation 50 deg and left rotation 45 deg; right SB 15 deg and left 15 deg. LTG Duration 8 weeks 2 Director Telehealth Goal (LTG) Pt will perform HEP with I to improve dizziness by 12/06/2019. 10/06/2019: Pt has been performing exercises but not as consistently as she would like, things got tough before her ear surgery LTG Duration 8 weeks 1 Impairment DHI reflects 60%, perception of severe handicap Director Telehealth Goal (LTG) Pt will present with a DHI reflecting no more than 45%, perception of moderate handicap by 12/06/2019. 10/06/2019: DHI is 60% and pt states that she can recognize her sxs more easily and this might affect score. LTG Duration 8 weeks Assessment Summary Assessment Pt has to leave early today. Pt reports occ anxiety with [place] breathing and notices she can do nasal breathing. Diaphragm pressure with anxiety with [employer] helped and ongoing treatment with this today. Physical Therapy Plan Frequency and Duration Frequency of Treatment 2x/Week Duration of Treatment 8 weeks Plan of Care Start Date 10/06/19 Plan of Care End Date 12/07/19 Therapeutic Interventions Therapeutic Interventions Balance Training,Canalithic Repositioning,Home Exercise Program,Joint Mobilizations, Manual Therapy,Neuromuscular Re-education,Patient/Caregiver Education,Self-Care/Home Management,Soft Tissue Mobilization,Taping, Therapeutic Exercises, Vestibular Rehabilitation Modalities Cold Pack/Ice Massage,Electric Stimulation,Hot Packs, Ultrasound Next Visit Focus/Plan Next Note Type Treatment Note Next Visit Plan Con't progression including balance, postural, core and thoracic mobility, con't manual work as needed
--- NOTE | 2019-11-05 09:40 | PT.OTN ---
Current Diagnoses Other peripheral vertigo, unspecified ear (11/05/19) Cervicalgia (11/05/19) Physical Therapy Treatment Note PT-OP-A Visit Information Start: 02/16/19 07:27 Freq: Status: Active Protocol: Document 11/05/19 09:00 MB (Rec: 11/05/19 09:40 MB [id number]) Out-Patient Physical Therapy Visit Information Visit Information Visit Type Treatment Note Visit Note 06/10 for auth Visit Start Time 09:00 Visit Stop Time 09:40 Total Visit Minutes 40 Visit Number 11/05 PT-OP-B Current Condition Start: 02/16/19 07:27 Freq: Status: Active Protocol: Document 02/16/19 07:31 MB (Rec: 02/16/19 08:59 MB [id number]) Current Condition History of Current Condition Onset Date 2011 Current Complaints Dizziness with cervical rotation and manual work. 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 Her inner ear was spared and she has a drain. 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 She is seeing CELESTINO Molina at [facility], for vestibular therapy. 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 She was found to have enlarged lymph node around C2. She gets dizzy with cervical mobility stretches and rotation right and left. She is here for myofascial work on her neck. She wonders what myofascial is. She had a massage in the past and it was not necessarily helpful. She has been seeing CELESTINO Molina for about 2.5 months. She is working on balance exericses, eye movements. She did have a little massage with Tracy and it went well. Tracy wanted pt to have myofascial massage. She has spasms and numbness left side of her face after ear surgery. She has droopiness in the left side of her lips. Her biggest area of spasm is left buccal area. She describes an involuntary Xu curve. 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 The rib stuff is helping a lot. PT-OP-K Range of Motion Start: 02/16/19 07:27 Freq: Status: Active Protocol: Document 02/16/19 07:31 MB (Rec: 02/16/19 08:59 MB [id number]) Cervical Spine Range of Motion Cervical Spine Active Testing Position Standing Flexion 30 Extension 35 Rotation Left 31 Rotation Right 31 Lateral Flexion Left 15 Lateral Flexion Right 15 Comments Pt does not perform enough ROM to cause dizziness PT-OP-M Strength Start: 02/16/19 07:27 Freq: Status: Active Protocol: Document 02/16/19 07:31 MB (Rec: 02/16/19 08:59 MB [id number]) Shoulder Strength Shoulder Manual Muscle Testing Left Flexion 5 Normal Abduction (C5) 5 Normal Right Flexion 5 Normal Abduction (C5) 5 Normal Elbow/Forearm Strength Elbow and Forearm Manual Muscle Testing Left Flexion (C6) 5 Normal Extension (C7) 5 Normal Right Flexion (C6) 5 Normal Extension (C7) 5 Normal Wrist Strength Wrist Manual Muscle Testing Both Comments Deferred flexion, extension, supination and pronation MMT d /t ulnar bone changes PT-OP-Q Treatments Start: 02/16/19 07:27 Freq: Status: Active Protocol: Document 11/05/19 09:00 MB (Rec: 11/05/19 09:40 MB [id number]) Therapeutic Exercises Supine Exercises Pool noodle progression Supine Exercise Name Pt to use cervical support horizontal for head Reps/Minutes 5 reps all, slowly Comments Abdominal drawing, Ys, Xs, Ts Ws Prone Exercises Child Reps/Minutes 30 sec hold all positions Comments Child's Pose and with hands forward and then walking to the sides Manual Therapy Treatment Other Other Manual Treatments Prone rib recoil and Grade II- IV PA mobs, scapular mobs, STM B middle and posterior scalenes PT-OP-T Assessment and Plan Start: 02/16/19 07:27 Freq: Status: Active Protocol: Document 11/05/19 09:00 MB (Rec: 11/05/19 09:40 MB [id number]) Physical Therapy Assessment Rehab Potential Rehabilitation Potential Fair Evaluation Complexity Number of Personal Factors/Comorbidities 1-2 Number of Body Systems Impaired 1-2 Clinical Presentation at Evaluation Evolving Impairments Impairments Balance,Integument,Pain, Posture,ROM,Soft Tissue Mobility,Strength,Vestibular Goals 5 Impairment NDI score 28/50 Land Agent Goal (LTG) Pt will present with improved NDI score to reflect no more than 15% impairment to reflect decreased neck pain by 2019. 4 Impairment FGA 02/25 Land Agent Goal (LTG) Pt will perform WNLs on FGA to decrease fall risk by 2019. 10/06/2019: Pt tends to walk with UEs up/guarded and this adds to shoulder elevation. LTG Duration 8 weeks 3 Residential Goal (LTG) Pt will present with improved B cervical rotation to 60 deg, B SB to 25 deg to increase functional movement by 2019. 10/06/2019: Pt presents with right rotation 50 deg and left rotation 45 deg; right SB 15 deg and left 15 deg. LTG Duration 8 weeks 2 Residential Goal (LTG) Pt will perform HEP with I to improve dizziness by 12/06/2019. 10/06/2019: Pt has been performing exercises but not as consistently as she would like, things got tough before her ear surgery LTG Duration 8 weeks 1 Impairment DHI reflects 60%, perception of severe handicap Land Agent Goal (LTG) Pt will present with a DHI reflecting no more than 45%, perception of moderate handicap by 12/06/2019. 10/06/2019: DHI is 60% and pt states that she can recognize her sxs more easily and this might affect score. LTG Duration 8 weeks Assessment Summary Assessment Initiated Child's Pose, pool noodle for thoracic mobility and to progress strengthening. Pt presents with increased tension right scapular and rib areas today. Physical Therapy Plan Frequency and Duration Frequency of Treatment 2x/Week Duration of Treatment 8 weeks Plan of Care Start Date 10/06/19 Plan of Care End Date 12/07/19 Therapeutic Interventions Therapeutic Interventions Balance Training,Canalithic Repositioning,Home Exercise Program,Joint Mobilizations, Manual Therapy,Neuromuscular Re-education,Patient/Caregiver Education,Self-Care/Home Management,Soft Tissue Mobilization,Taping, Therapeutic Exercises, Vestibular Rehabilitation Modalities Cold Pack/Ice Massage,Electric Stimulation,Hot Packs, Ultrasound Next Visit Focus/Plan Next Note Type Treatment Note Next Visit Plan Con't progression including balance, postural, core and thoracic mobility, con't manual work as needed
--- NOTE | 2019-11-09 09:44 | PT.OTN ---
Current Diagnoses Other peripheral vertigo, unspecified ear (11/09/19) Cervicalgia (11/09/19) Physical Therapy Treatment Note PT-OP-A Visit Information Start: 02/16/19 07:27 Freq: Status: Active Protocol: Document 11/09/19 09:02 MB (Rec: 11/09/19 09:44 MB [id number]) Out-Patient Physical Therapy Visit Information Visit Information Visit Type Treatment Note Visit Note 07/08 for auth Visit Start Time 09:02 Visit Stop Time 09:40 Total Visit Minutes 38 Visit Number 12/06 PT-OP-B Current Condition Start: 02/16/19 07:27 Freq: Status: Active Protocol: Document 02/16/19 07:31 MB (Rec: 02/16/19 08:59 MB [id number]) Current Condition History of Current Condition Onset Date 2011 Current Complaints Dizziness with cervical rotation and manual work. 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 Her inner ear was spared and she has a drain. 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 She is seeing CELESTINO Molina at [facility], for vestibular therapy. 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 She was found to have enlarged lymph node around C2. She gets dizzy with cervical mobility stretches and rotation right and left. She is here for myofascial work on her neck. She wonders what myofascial is. She had a massage in the past and it was not necessarily helpful. She has been seeing CELESTINO Molina for about 2.5 months. She is working on balance exericses, eye movements. She did have a little massage with Tracy and it went well. Tracy wanted pt to have myofascial massage. She has spasms and numbness left side of her face after ear surgery. She has droopiness in the left side of her lips. Her biggest area of spasm is left buccal area. She describes an involuntary Xu curve. 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 She is ready to get more active. PT-OP-K Range of Motion Start: 02/16/19 07:27 Freq: Status: Active Protocol: Document 02/16/19 07:31 MB (Rec: 02/16/19 08:59 MB [id number]) Cervical Spine Range of Motion Cervical Spine Active Testing Position Standing Flexion 30 Extension 35 Rotation Left 31 Rotation Right 31 Lateral Flexion Left 15 Lateral Flexion Right 15 Comments Pt does not perform enough ROM to cause dizziness PT-OP-M Strength Start: 02/16/19 07:27 Freq: Status: Active Protocol: Document 02/16/19 07:31 MB (Rec: 02/16/19 08:59 MB [id number]) Shoulder Strength Shoulder Manual Muscle Testing Left Flexion 5 Normal Abduction (C5) 5 Normal Right Flexion 5 Normal Abduction (C5) 5 Normal Elbow/Forearm Strength Elbow and Forearm Manual Muscle Testing Left Flexion (C6) 5 Normal Extension (C7) 5 Normal Right Flexion (C6) 5 Normal Extension (C7) 5 Normal Wrist Strength Wrist Manual Muscle Testing Both Comments Deferred flexion, extension, supination and pronation MMT d /t ulnar bone changes PT-OP-Q Treatments Start: 02/16/19 07:27 Freq: Status: Active Protocol: Document 11/09/19 09:02 MB (Rec: 11/09/19 09:44 MB [id number]) Therapeutic Exercises Supine Exercises Modified boat pose Comments Performed with head supported, mini presses with arms Core progression Supine Exercise Name On mat, does not feel. On pool noodle, feels hips Reps/Minutes 10 reps Comments Abd draw in, lumbar rotation, HS, mini march, knee fall out Sitting Exercises Ankle eversion and DF with level 1 band Comments 10 reps today and cues for form Standing Exercises Hip extension Comments Pt has trouble keeping legs straight and so not given for HEP Crab and backwards walking Comments Level 1 band and cues for form PT-OP-T Assessment and Plan Start: 02/16/19 07:27 Freq: Status: Active Protocol: Document 11/09/19 09:02 MB (Rec: 11/09/19 09:44 MB [id number]) Physical Therapy Assessment Rehab Potential Rehabilitation Potential Fair Evaluation Complexity Number of Personal Factors/Comorbidities 1-2 Number of Body Systems Impaired 1-2 Clinical Presentation at Evaluation Evolving Impairments Impairments Balance,Integument,Pain, Posture,ROM,Soft Tissue Mobility,Strength,Vestibular Goals 5 Impairment NDI score 28/50 Penitentiary Goal (LTG) Pt will present with improved NDI score to reflect no more than 15% impairment to reflect decreased neck pain by 2019. 4 Impairment FGA 02/25 Penitentiary Goal (LTG) Pt will perform WNLs on FGA to decrease fall risk by 2019. 10/06/2019: Pt tends to walk with UEs up/guarded and this adds to shoulder elevation. LTG Duration 8 weeks 3 Penitentiary Goal (LTG) Pt will present with improved B cervical rotation to 60 deg, B SB to 25 deg to increase functional movement by 2019. 10/06/2019: Pt presents with right rotation 50 deg and left rotation 45 deg; right SB 15 deg and left 15 deg. LTG Duration 8 weeks 2 Composition Board Press Operator Goal (LTG) Pt will perform HEP with I to improve dizziness by 12/06/2019. 10/06/2019: Pt has been performing exercises but not as consistently as she would like, things got tough before her ear surgery LTG Duration 8 weeks 1 Impairment DHI reflects 60%, perception of severe handicap Penitentiary Goal (LTG) Pt will present with a DHI reflecting no more than 45%, perception of moderate handicap by 12/06/2019. 10/06/2019: DHI is 60% and pt states that she can recognize her sxs more easily and this might affect score. LTG Duration 8 weeks Assessment Summary Assessment Gentle core progression is too easy today. Progress opposite hand to knee and too easy. Progressed to legs long, hold and presses with hands--head supported. Progressed hip strengthening and ankle strengthening today to help with balance. Physical Therapy Plan Frequency and Duration Frequency of Treatment 2x/Week Duration of Treatment 8 weeks Plan of Care Start Date 10/06/19 Plan of Care End Date 12/07/19 Therapeutic Interventions Therapeutic Interventions Balance Training,Canalithic Repositioning,Home Exercise Program,Joint Mobilizations, Manual Therapy,Neuromuscular Re-education,Patient/Caregiver Education,Self-Care/Home Management,Soft Tissue Mobilization,Taping, Therapeutic Exercises, Vestibular Rehabilitation Modalities Cold Pack/Ice Massage,Electric Stimulation,Hot Packs, Ultrasound Next Visit Focus/Plan Next Note Type Treatment Note Next Visit Plan Con't progression including balance, con't manual work as needed
--- NOTE | 2019-11-16 10:32 | PT.OTN ---
Current Diagnoses Other peripheral vertigo, unspecified ear (11/16/19) Cervicalgia (11/16/19) Physical Therapy Treatment Note PT-OP-A Visit Information Start: 02/16/19 07:27 Freq: Status: Active Protocol: Document 11/16/19 09:46 MB (Rec: 11/16/19 10:29 MB [id number]) Out-Patient Physical Therapy Visit Information Visit Information Visit Type Treatment Note Visit Note 08/08 for auth Visit Start Time 09:46 Visit Stop Time 10:30 Total Visit Minutes 44 Visit Number 01/06 PT-OP-B Current Condition Start: 02/16/19 07:27 Freq: Status: Active Protocol: Document 02/16/19 07:31 MB (Rec: 02/16/19 08:59 MB [id number]) Current Condition History of Current Condition Onset Date 2011 Current Complaints Dizziness with cervical rotation and manual work. 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 Her inner ear was spared and she has a drain. 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 She is seeing CELESTINO Molina at [facility], for vestibular therapy. 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 She was found to have enlarged lymph node around C2. She gets dizzy with cervical mobility stretches and rotation right and left. She is here for myofascial work on her neck. She wonders what myofascial is. She had a massage in the past and it was not necessarily helpful. She has been seeing CELESTINO Molina for about 2.5 months. She is working on balance exericses, eye movements. She did have a little massage with Tracy and it went well. Tracy wanted pt to have myofascial massage. She has spasms and numbness left side of her face after ear surgery. She has droopiness in the left side of her lips. Her biggest area of spasm is left buccal area. She describes an involuntary Xu curve. 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 She felt spinny dizziness for 2 days that is episodic. She felt aural fullness. She feels like it is inner ear/ vestibular and not visual perceptual. PT-OP-K Range of Motion Start: 02/16/19 07:27 Freq: Status: Active Protocol: Document 02/16/19 07:31 MB (Rec: 02/16/19 08:59 MB [id number]) Cervical Spine Range of Motion Cervical Spine Active Testing Position Standing Flexion 30 Extension 35 Rotation Left 31 Rotation Right 31 Lateral Flexion Left 15 Lateral Flexion Right 15 Comments Pt does not perform enough ROM to cause dizziness PT-OP-M Strength Start: 02/16/19 07:27 Freq: Status: Active Protocol: Document 02/16/19 07:31 MB (Rec: 02/16/19 08:59 MB [id number]) Shoulder Strength Shoulder Manual Muscle Testing Left Flexion 5 Normal Abduction (C5) 5 Normal Right Flexion 5 Normal Abduction (C5) 5 Normal Elbow/Forearm Strength Elbow and Forearm Manual Muscle Testing Left Flexion (C6) 5 Normal Extension (C7) 5 Normal Right Flexion (C6) 5 Normal Extension (C7) 5 Normal Wrist Strength Wrist Manual Muscle Testing Both Comments Deferred flexion, extension, supination and pronation MMT d /t ulnar bone changes PT-OP-Q Treatments Start: 02/16/19 07:27 Freq: Status: Active Protocol: Document 11/16/19 09:46 MB (Rec: 11/16/19 10:29 MB [id number]) Manual Therapy Treatment Soft Tissue Mobilization MWM and suboccipital release Comments See assessment comments below for pt response. Treated MWM B SCM, posterior scalene and suboccipital release Positional release left scalenes Neuro Re-Education Treatment Other Activities BPPV testing Comments B Park-Hallpike negative for dizziness and nystagmus. Pt reports B aural fullness--left with head in both positions and right when right side tested. B Roll Test negative for dizziness and nystagmus PT-OP-T Assessment and Plan Start: 02/16/19 07:27 Freq: Status: Active Protocol: Document 11/16/19 09:46 MB (Rec: 11/16/19 10:29 MB [id number]) Physical Therapy Assessment Rehab Potential Rehabilitation Potential Fair Evaluation Complexity Number of Personal Factors/Comorbidities 1-2 Number of Body Systems Impaired 1-2 Clinical Presentation at Evaluation Evolving Impairments Impairments Balance,Integument,Pain, Posture,ROM,Soft Tissue Mobility,Strength,Vestibular Goals 5 Impairment NDI score Half-Way Goal (LTG) Pt will present with improved NDI score to reflect no more than 15% impairment to reflect decreased neck pain by 2019. 4 Impairment FGA 02/25 Package Collector Goal (LTG) Pt will perform WNLs on FGA to decrease fall risk by 2019. 10/06/2019: Pt tends to walk with UEs up/guarded and this adds to shoulder elevation. LTG Duration 8 weeks 3 Half-Way Goal (LTG) Pt will present with improved B cervical rotation to 60 deg, B SB to 25 deg to increase functional movement by 2019. 10/06/2019: Pt presents with right rotation 50 deg and left rotation 45 deg; right SB 15 deg and left 15 deg. LTG Duration 8 weeks 2 Package Collector Goal (LTG) Pt will perform HEP with I to improve dizziness by 12/06/2019. 10/06/2019: Pt has been performing exercises but not as consistently as she would like, things got tough before her ear surgery LTG Duration 8 weeks 1 Impairment DHI reflects 60%, perception of severe handicap Package Collector Goal (LTG) Pt will present with a DHI reflecting no more than 45%, perception of moderate handicap by 12/06/2019. 10/06/2019: DHI is 60% and pt states that she can recognize her sxs more easily and this might affect score. LTG Duration 8 weeks Assessment Summary Assessment BPPV testing negative today. Pt presents with B upper traps , posterior paraspinal tension , SCM and posterior scalene tension and trouble tolerating manual work except for suboccipital release. Ed pt on tongue to mouth to help aural pressure as well as gentle self-sinus release pressing on maxillary process B. Physical Therapy Plan Frequency and Duration Frequency of Treatment 2x/Week Duration of Treatment 8 weeks Plan of Care Start Date 10/06/19 Plan of Care End Date 12/07/19 Therapeutic Interventions Therapeutic Interventions Balance Training,Canalithic Repositioning,Home Exercise Program,Joint Mobilizations, Manual Therapy,Neuromuscular Re-education,Patient/Caregiver Education,Self-Care/Home Management,Soft Tissue Mobilization,Taping, Therapeutic Exercises, Vestibular Rehabilitation Modalities Cold Pack/Ice Massage,Electric Stimulation,Hot Packs, Ultrasound Next Visit Focus/Plan Next Note Type Treatment Note Next Visit Plan Con't progression including balance, con't manual work as needed. Consider cervical rotation with end-range nods and upper cervical isometric.
--- NOTE | 2019-11-23 10:26 | PT.OTN ---
Current Diagnoses Other peripheral vertigo, unspecified ear (11/23/19) Cervicalgia (11/23/19) Physical Therapy Treatment Note PT-OP-A Visit Information Start: 02/16/19 07:27 Freq: Status: Active Protocol: Document 11/23/19 09:45 MB (Rec: 11/23/19 10:26 MB [id number]) Out-Patient Physical Therapy Visit Information Visit Information Visit Type Progress Note Visit Note 09/07 Visit Start Time 09:45 Visit Stop Time 10:25 Total Visit Minutes 40 Visit Number 02/05 PT-OP-B Current Condition Start: 02/16/19 07:27 Freq: Status: Active Protocol: Document 02/16/19 07:31 MB (Rec: 02/16/19 08:59 MB [id number]) Current Condition History of Current Condition Onset Date 2011 Current Complaints Dizziness with cervical rotation and manual work. 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 Her inner ear was spared and she has a drain. 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 She is seeing CELESTINO Molina at [facility], for vestibular therapy. 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 She was found to have enlarged lymph node around C2. She gets dizzy with cervical mobility stretches and rotation right and left. She is here for myofascial work on her neck. She wonders what myofascial is. She had a massage in the past and it was not necessarily helpful. She has been seeing CELESTINO Molina for about 2.5 months. She is working on balance exericses, eye movements. She did have a little massage with Tracy and it went well. Tracy wanted pt to have myofascial massage. She has spasms and numbness left side of her face after ear surgery. She has droopiness in the left side of her lips. Her biggest area of spasm is left buccal area. She describes an involuntary Xu curve. 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 She cannot report any changes in stress, diet or medication. The only thing that was different was the allergy injections being increased. Pt has less neck pain since starting PT. She notices stiffness. She is not having as much soreness. Heat might be causing some of the dizziness and they do not have air conditioning. She might have allergy symptoms. Balance is better, especially since ear surgery. PT-OP-K Range of Motion Start: 02/16/19 07:27 Freq: Status: Active Protocol: Document 02/16/19 07:31 MB (Rec: 02/16/19 08:59 MB [id number]) Cervical Spine Range of Motion Cervical Spine Active Testing Position Standing Flexion 30 Extension 35 Rotation Left 31 Rotation Right 31 Lateral Flexion Left 15 Lateral Flexion Right 15 Comments Pt does not perform enough ROM to cause dizziness PT-OP-M Strength Start: 02/16/19 07:27 Freq: Status: Active Protocol: Document 02/16/19 07:31 MB (Rec: 02/16/19 08:59 MB [id number]) Shoulder Strength Shoulder Manual Muscle Testing Left Flexion 5 Normal Abduction (C5) 5 Normal Right Flexion 5 Normal Abduction (C5) 5 Normal Elbow/Forearm Strength Elbow and Forearm Manual Muscle Testing Left Flexion (C6) 5 Normal Extension (C7) 5 Normal Right Flexion (C6) 5 Normal Extension (C7) 5 Normal Wrist Strength Wrist Manual Muscle Testing Both Comments Deferred flexion, extension, supination and pronation MMT d /t ulnar bone changes PT-OP-Q Treatments Start: 02/16/19 07:27 Freq: Status: Active Protocol: Document 11/23/19 09:45 MB (Rec: 11/23/19 10:26 MB [id number]) Therapeutic Exercises Supine Exercises Pool noodle progression Comments Ys, Ts, pelvic tilt and abdominal drawing in, pect stretch Sidelying Exercises Open book Comments 10 reps B today Other Exercises Quadriped thread the needle Comments B 5 reps Reviewed HEP today and will add SCM MWM in the futture if helpful Comments Similarly done today during reassessment Neuro Re-Education Treatment Balance Activities FGA Comments , 11 points improvement from last reassessment PT-OP-T Assessment and Plan Start: 02/16/19 07:27 Freq: Status: Active Protocol: Document 11/23/19 09:45 MB (Rec: 11/23/19 10:26 MB [id number]) Physical Therapy Assessment Rehab Potential Rehabilitation Potential Fair Evaluation Complexity Number of Personal Factors/Comorbidities 1-2 Number of Body Systems Impaired 1-2 Clinical Presentation at Evaluation Evolving Impairments Impairments Balance,Integument,Pain, Posture,ROM,Soft Tissue Mobility,Strength,Vestibular Goals 5 Impairment NDI score 28/50 Professor Of Pathology Goal (LTG) Pt will present with improved NDI score to reflect no more than 15% impairment to reflect decreased neck pain by 2019. 11/23/2019: NDI score reflects 18% impairment. 4 Impairment FGA 02/25 Nursing Home Goal (LTG) Pt will perform WNLs on FGA to decrease fall risk by 2019. 11/23/2019: Pt tends to walk with UEs up/guarded and this adds to shoulder elevation. Walking with eyes closed also troublesome. Score , 11 points better than last reassessment LTG Duration 8 weeks 3 Nursing Home Goal (LTG) Pt will present with improved B cervical rotation to 60 deg, B SB to 25 deg to increase functional movement by 2019. 11/23/2019: Pt presents with right rotation 55 deg and left rotation 52 deg; right SB 25 deg and left 25 deg. LTG Duration 8 weeks 2 Professor Of Pathology Goal (LTG) Pt will perform HEP with I to improve dizziness by 01/24/20. 11/23/2019: Pt is performing progressive HEP and can manage program, staggering when she performs exercises. LTG Duration 8 weeks 1 Impairment DHI reflects 60%, perception of severe handicap Professor Of Pathology Goal (LTG) Pt will present with a DHI reflecting no more than 20%, perception of moderate handicap by 01/24/2020. 11/23/2019: DHI score reflects 30% impairment, a 30% improvement since last reassessment LTG Duration 8 weeks Assessment Summary Assessment Pt has progressed towards all goals since starting PT. These include NDI score, cervical ROM, DHI score, performance of progressive HEP and balance exercises. Pt will benefit from ongoing PT to further progress cervical ROM and advanced HEP. Physical Therapy Plan Frequency and Duration Frequency of Treatment 2x/Week Duration of Treatment 8 weeks Plan of Care Start Date 11/23/19 Plan of Care End Date 01/25/20 Therapeutic Interventions Therapeutic Interventions Balance Training,Canalithic Repositioning,Home Exercise Program,Joint Mobilizations, Manual Therapy,Neuromuscular Re-education,Patient/Caregiver Education,Self-Care/Home Management,Soft Tissue Mobilization,Taping, Therapeutic Exercises, Vestibular Rehabilitation Modalities Cold Pack/Ice Massage,Electric Stimulation,Hot Packs, Ultrasound Next Visit Focus/Plan Next Note Type Treatment Note Next Visit Plan Con't progression including balance, con't manual work as needed. Consider cervical rotation with end-range nods and upper cervical isometric.
--- NOTE | 2019-11-23 10:27 | PT.OPPOC ---
Physical, Occupational & Speech Therapy At [facility] Current Diagnoses Other peripheral vertigo, unspecified ear (11/23/19) Cervicalgia (11/23/19) Visit Care Team Role Provider Type Priscila Bella DO Attending Provider Non-Staff Primary Care Provider Specialty: Medical Address: [address] [place] [address], [id number] Email: Plan Of Care PT-OP-T Assessment and Plan Start: 02/16/19 07:27 Freq: Status: Active Protocol: Document 11/23/19 09:45 MB (Rec: 11/23/19 10:26 MB [id number]) Physical Therapy Assessment Rehab Potential Rehabilitation Potential Fair Evaluation Complexity Number of Personal Factors/Comorbidities 1-2 Number of Body Systems Impaired 1-2 Clinical Presentation at Evaluation Evolving Impairments Impairments Balance,Integument,Pain, Posture,ROM,Soft Tissue Mobility,Strength,Vestibular Goals 5 Impairment NDI score 28/50 Mcfp Goal (LTG) Pt will present with improved NDI score to reflect no more than 15% impairment to reflect decreased neck pain by 2019. 11/23/2019: NDI score reflects 18% impairment. 4 Impairment FGA 02/25 Mcfp Goal (LTG) Pt will perform WNLs on FGA to decrease fall risk by 2019. 11/23/2019: Pt tends to walk with UEs up/guarded and this adds to shoulder elevation. Walking with eyes closed also troublesome. Score 21/30, 11 points better than last reassessment LTG Duration 8 weeks 3 Cosmetology Instructor Goal (LTG) Pt will present with improved B cervical rotation to 60 deg, B SB to 25 deg to increase functional movement by 2019. 11/23/2019: Pt presents with right rotation 55 deg and left rotation 52 deg; right SB 25 deg and left 25 deg. LTG Duration 8 weeks 2 Mcfp Goal (LTG) Pt will perform HEP with I to improve dizziness by 01/24/20. 11/23/2019: Pt is performing progressive HEP and can manage program, staggering when she performs exercises. LTG Duration 8 weeks 1 Impairment DHI reflects 60%, perception of severe handicap Cosmetology Instructor Goal (LTG) Pt will present with a DHI reflecting no more than 20%, perception of moderate handicap by 01/24/2020. 11/23/2019: DHI score reflects 30% impairment, a 30% improvement since last reassessment LTG Duration 8 weeks Assessment Summary Assessment Pt has progressed towards all goals since starting PT. These include NDI score, cervical ROM, DHI score, performance of progressive HEP and balance exercises. Pt will benefit from ongoing PT to further progress cervical ROM and advanced HEP. Physical Therapy Plan Frequency and Duration Frequency of Treatment 2x/Week Duration of Treatment 8 weeks Plan of Care Start Date 11/23/19 Plan of Care End Date 01/25/20 Therapeutic Interventions Therapeutic Interventions Balance Training,Canalithic Repositioning,Home Exercise Program,Joint Mobilizations, Manual Therapy,Neuromuscular Re-education,Patient/Caregiver Education,Self-Care/Home Management,Soft Tissue Mobilization,Taping, Therapeutic Exercises, Vestibular Rehabilitation Modalities Cold Pack/Ice Massage,Electric Stimulation,Hot Packs, Ultrasound Next Visit Focus/Plan Next Note Type Treatment Note Next Visit Plan Con't progression including balance, con't manual work as needed. Consider cervical rotation with end-range nods and upper cervical isometric. Plan of Care Dates Plan of Care Start Date 11/23/19 Plan of Care End Date 01/25/20 Electronically Signed by: Rae Sprague, PT 11/23/19 [id number] Please Sign and Return: I have reviewed this Plan of Care and certify that the skilled therapy services above are required to meet the patient?s needs. Physician Signature Date Printed Name and Credentials Clinical Instructor Signature Printed Name and Credentials
--- NOTE | 2019-11-26 09:42 | PT.OTN ---
Current Diagnoses Other peripheral vertigo, unspecified ear (11/26/19) Cervicalgia (11/26/19) Physical Therapy Treatment Note PT-OP-A Visit Information Start: 02/16/19 07:27 Freq: Status: Active Protocol: Document 11/26/19 08:55 MB (Rec: 11/26/19 09:41 MB [id number]) Out-Patient Physical Therapy Visit Information Visit Information Visit Type Treatment Note Visit Note 10/08 Visit Start Time 08:55 Visit Stop Time 09:40 Total Visit Minutes 45 Visit Number 05/08 until next reassessment PT-OP-B Current Condition Start: 02/16/19 07:27 Freq: Status: Active Protocol: Document 02/16/19 07:31 MB (Rec: 02/16/19 08:59 MB [id number]) Current Condition History of Current Condition Onset Date 2011 Current Complaints Dizziness with cervical rotation and manual work. 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 Her inner ear was spared and she has a drain. 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 She is seeing CELESTINO Molina at [facility], for vestibular therapy. 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 She was found to have enlarged lymph node around C2. She gets dizzy with cervical mobility stretches and rotation right and left. She is here for myofascial work on her neck. She wonders what myofascial is. She had a massage in the past and it was not necessarily helpful. She has been seeing CELESTINO Molina for about 2.5 months. She is working on balance exericses, eye movements. She did have a little massage with Tracy and it went well. Tracy wanted pt to have myofascial massage. She has spasms and numbness left side of her face after ear surgery. She has droopiness in the left side of her lips. Her biggest area of spasm is left buccal area. She describes an involuntary Xu curve. 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 She is interested in editing HEP today. PT-OP-K Range of Motion Start: 02/16/19 07:27 Freq: Status: Active Protocol: Document 02/16/19 07:31 MB (Rec: 02/16/19 08:59 MB [id number]) Cervical Spine Range of Motion Cervical Spine Active Testing Position Standing Flexion 30 Extension 35 Rotation Left 31 Rotation Right 31 Lateral Flexion Left 15 Lateral Flexion Right 15 Comments Pt does not perform enough ROM to cause dizziness PT-OP-M Strength Start: 02/16/19 07:27 Freq: Status: Active Protocol: Document 02/16/19 07:31 MB (Rec: 02/16/19 08:59 MB [id number]) Shoulder Strength Shoulder Manual Muscle Testing Left Flexion 5 Normal Abduction (C5) 5 Normal Right Flexion 5 Normal Abduction (C5) 5 Normal Elbow/Forearm Strength Elbow and Forearm Manual Muscle Testing Left Flexion (C6) 5 Normal Extension (C7) 5 Normal Right Flexion (C6) 5 Normal Extension (C7) 5 Normal Wrist Strength Wrist Manual Muscle Testing Both Comments Deferred flexion, extension, supination and pronation MMT d /t ulnar bone changes PT-OP-Q Treatments Start: 02/16/19 07:27 Freq: Status: Active Protocol: Document 11/26/19 08:55 MB (Rec: 11/26/19 09:41 MB [id number]) Therapeutic Exercises Supine Exercises Pool noodle progression Comments Reviewed and to perform 3x/wk at home Buteyko breathing Supine Exercise Name O2 sats 99% and HR 93 before ex Comments Exercise 1, trained diaphragmatic ex today Pelvic realignment exercise Comments Verbally reviewed and everyday Diaphragmatic breathing Comments D/cd standard, perform with Buteyko today Progressive Muscle Relaxation Exercises Comments As needed EFT Comments As needed Prone Exercises Child Comments As needed Sidelying Exercises Open book Comments Reviewed and will perform everyday Standing Exercises Crab and backwards walking Comments 3x/wk Racquet ball massage Comments Upper traps/intrascap 3x/wk; easton cat everyday Pect stretch Comments Doorway everday Shoulder ER and scapular retraction with level 1 band Comments Scapular retraction 3x/wk, d/c ER Other Exercises Quadriped thread the needle Comments D/cd in favor of Child's Pose and open book Racquet ball massage with MWM shoulder ER for infraspinatus and cervical rotation for upper traps Comments See comments above Reviewed HEP today and will add SCM MWM in the futture if helpful Comments D/cd SCM, updated all exercises today PT-OP-T Assessment and Plan Start: 02/16/19 07:27 Freq: Status: Active Protocol: Document 11/26/19 08:55 MB (Rec: 11/26/19 09:41 MB [id number]) Physical Therapy Assessment Rehab Potential Rehabilitation Potential Fair Evaluation Complexity Number of Personal Factors/Comorbidities 1-2 Number of Body Systems Impaired 1-2 Clinical Presentation at Evaluation Evolving Impairments Impairments Balance,Integument,Pain, Posture,ROM,Soft Tissue Mobility,Strength,Vestibular Goals 5 Impairment NDI score 28/50 Shot Hole Shooter Goal (LTG) Pt will present with improved NDI score to reflect no more than 15% impairment to reflect decreased neck pain by 2019. 11/23/2019: NDI score reflects 18% impairment. 4 Impairment FGA 02/25 Prison Goal (LTG) Pt will perform WNLs on FGA to decrease fall risk by 2019. 11/23/2019: Pt tends to walk with UEs up/guarded and this adds to shoulder elevation. Walking with eyes closed also troublesome. Score 21/30, 11 points better than last reassessment LTG Duration 8 weeks 3 Prison Goal (LTG) Pt will present with improved B cervical rotation to 60 deg, B SB to 25 deg to increase functional movement by 2019. 11/23/2019: Pt presents with right rotation 55 deg and left rotation 52 deg; right SB 25 deg and left 25 deg. LTG Duration 8 weeks 2 Prison Goal (LTG) Pt will perform HEP with I to improve dizziness by 01/24/20. 11/23/2019: Pt is performing progressive HEP and can manage program, staggering when she performs exercises. LTG Duration 8 weeks 1 Impairment DHI reflects 60%, perception of severe handicap Prison Goal (LTG) Pt will present with a DHI reflecting no more than 20%, perception of moderate handicap by 01/24/2020. 11/23/2019: DHI score reflects 30% impairment, a 30% improvement since last reassessment LTG Duration 8 weeks Assessment Summary Assessment Revised all exercises today and updated program: Everyday: Buteyko breathing exercise 1, sinus decongestion and diaphragm; open book pect stretch doorway, pelvic realignment exercises, Child's Pose; 3x/wk: sitting ankle strengthening, backwards walking and crab walking, scapular retraction with band, [place] Cat, pool noodle exercises; PRN: glute massage ball, intrascapular and upper traps massage, EFT tapping, progressive relaxation exercises. Hold off on DVA VOR exercises given pt is getting better. Physical Therapy Plan Frequency and Duration Frequency of Treatment 2x/Week Duration of Treatment 8 weeks Plan of Care Start Date 11/23/19 Plan of Care End Date 01/25/20 Therapeutic Interventions Therapeutic Interventions Balance Training,Canalithic Repositioning,Home Exercise Program,Joint Mobilizations, Manual Therapy,Neuromuscular Re-education,Patient/Caregiver Education,Self-Care/Home Management,Soft Tissue Mobilization,Taping, Therapeutic Exercises, Vestibular Rehabilitation Modalities Cold Pack/Ice Massage,Electric Stimulation,Hot Packs, Ultrasound Next Visit Focus/Plan Next Note Type Treatment Note Next Visit Plan Con't progression including balance, con't manual work as needed. Anterior neck stretch, Buteyko diaphragm breathing. Consider cervical rotation with end-range nods and upper cervical isometric.
--- NOTE | 2019-12-04 09:00 | PT.OTN ---
Current Diagnoses Other peripheral vertigo, unspecified ear (12/04/19) Cervicalgia (12/04/19) Physical Therapy Treatment Note PT-OP-A Visit Information Start: 02/16/19 07:27 Freq: Status: Active Protocol: Document 12/04/19 08:19 MB (Rec: 12/04/19 08:45 MB [id number]) Out-Patient Physical Therapy Visit Information Visit Information Visit Type Treatment Note Visit Start Time 08:19 Visit Stop Time 09:00 Total Visit Minutes 41 Visit Number 06/08 until progress PT-OP-B Current Condition Start: 02/16/19 07:27 Freq: Status: Active Protocol: Document 02/16/19 07:31 MB (Rec: 02/16/19 08:59 MB [id number]) Current Condition History of Current Condition Onset Date 2011 Current Complaints Dizziness with cervical rotation and manual work. 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 Her inner ear was spared and she has a drain. 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 She is seeing CELETSINO Molina at [facility], for vestibular therapy. 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 She was found to have enlarged lymph node around C2. She gets dizzy with cervical mobility stretches and rotation right and left. She is here for myofascial work on her neck. She wonders what myofascial is. She had a massage in the past and it was not necessarily helpful. She has been seeing CELESTINO Molina for about 2.5 months. She is working on balance exericses, eye movements. She did have a little massage with Tracy and it went well. Tracy wanted pt to have myofascial massage. She has spasms and numbness left side of her face after ear surgery. She has droopiness in the left side of her lips. Her biggest area of spasm is left buccal area. She describes an involuntary Xu curve. 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 PT-OP-K Range of Motion Start: 02/16/19 07:27 Freq: Status: Active Protocol: Document 02/16/19 07:31 MB (Rec: 02/16/19 08:59 MB [id number]) Cervical Spine Range of Motion Cervical Spine Active Testing Position Standing Flexion 30 Extension 35 Rotation Left 31 Rotation Right 31 Lateral Flexion Left 15 Lateral Flexion Right 15 Comments Pt does not perform enough ROM to cause dizziness PT-OP-M Strength Start: 02/16/19 07:27 Freq: Status: Active Protocol: Document 02/16/19 07:31 MB (Rec: 02/16/19 08:59 MB [id number]) Shoulder Strength Shoulder Manual Muscle Testing Left Flexion 5 Normal Abduction (C5) 5 Normal Right Flexion 5 Normal Abduction (C5) 5 Normal Elbow/Forearm Strength Elbow and Forearm Manual Muscle Testing Left Flexion (C6) 5 Normal Extension (C7) 5 Normal Right Flexion (C6) 5 Normal Extension (C7) 5 Normal Wrist Strength Wrist Manual Muscle Testing Both Comments Deferred flexion, extension, supination and pronation MMT d /t ulnar bone changes PT-OP-Q Treatments Start: 02/16/19 07:27 Freq: Status: Active Protocol: Document 12/04/19 08:19 MB (Rec: 12/04/19 08:45 MB [id number]) Manual Therapy Treatment Manual Techniques Counterstrain Comments Pt agrees to Counterstrain to and treat fascial tension and PT assesses and treats the following areas: right ALL, left UE somatic, right LV posterior bias epidural, left cranial nerve, B standard lymphatic row head and neck PT-OP-T Assessment and Plan Start: 02/16/19 07:27 Freq: Status: Active Protocol: Document 12/04/19 08:19 MB (Rec: 12/04/19 08:45 MB [id number]) Physical Therapy Assessment Rehab Potential Rehabilitation Potential Fair Evaluation Complexity Number of Personal Factors/Comorbidities 1-2 Number of Body Systems Impaired 1-2 Clinical Presentation at Evaluation Evolving Impairments Impairments Balance,Integument,Pain, Posture,ROM,Soft Tissue Mobility,Strength,Vestibular Goals 5 Impairment NDI score 28/50 Halfway Goal (LTG) Pt will present with improved NDI score to reflect no more than 15% impairment to reflect decreased neck pain by 2019. 11/23/2019: NDI score reflects 18% impairment. 4 Impairment FGA 02/25 Ropeman Goal (LTG) Pt will perform WNLs on FGA to decrease fall risk by 2019. 11/23/2019: Pt tends to walk with UEs up/guarded and this adds to shoulder elevation. Walking with eyes closed also troublesome. Score 21/30, 11 points better than last reassessment LTG Duration 8 weeks 3 [place]eman Goal (LTG) Pt will present with improved B cervical rotation to 60 deg, B SB to 25 deg to increase functional movement by 2019. 11/23/2019: Pt presents with right rotation 55 deg and left rotation 52 deg; right SB 25 deg and left 25 deg. LTG Duration 8 weeks 2 Halfway Goal (LTG) Pt will perform HEP with I to improve dizziness by 01/24/20. 11/23/2019: Pt is performing progressive HEP and can manage program, staggering when she performs exercises. LTG Duration 8 weeks 1 Impairment DHI reflects 60%, perception of severe handicap R[place]eman Goal (LTG) Pt will present with a DHI reflecting no more than 20%, perception of moderate handicap by 01/24/2020. 11/23/2019: DHI score reflects 30% impairment, a 30% improvement since last reassessment LTG Duration 8 weeks Assessment Summary Assessment Counterstrain today to address fascial tension. Con't progression of exercises as pt tolerates. Physical Therapy Plan Frequency and Duration Frequency of Treatment 2x/Week Duration of Treatment 8 weeks Plan of Care Start Date 11/23/19 Plan of Care End Date 01/25/20 Therapeutic Interventions Therapeutic Interventions Balance Training,Canalithic Repositioning,Home Exercise Program,Joint Mobilizations, Manual Therapy,Neuromuscular Re-education,Patient/Caregiver Education,Self-Care/Home Management,Soft Tissue Mobilization,Taping, Therapeutic Exercises, Vestibular Rehabilitation Modalities Cold Pack/Ice Massage,Electric Stimulation,Hot Packs, Ultrasound Next Visit Focus/Plan Next Note Type Treatment Note Next Visit Plan Con't progression including balance, con't manual work as needed. Anterior neck stretch, Buteyko diaphragm breathing. Consider cervical rotation with end-range nods and upper cervical isometric.
--- NOTE | 2019-12-11 09:05 | PT.OTN ---
Current Diagnoses Other peripheral vertigo, unspecified ear (12/11/19) Cervicalgia (12/11/19) Physical Therapy Treatment Note PT-OP-A Visit Information Start: 02/16/19 07:27 Freq: Status: Active Protocol: Document 12/11/19 08:15 MB (Rec: 12/11/19 08:58 MB [id number]) Out-Patient Physical Therapy Visit Information Visit Information Visit Type Treatment Note Visit Start Time 08:15 Visit Stop Time 09:00 Total Visit Minutes 45 Visit Number 07/06 until progress PT-OP-B Current Condition Start: 02/16/19 07:27 Freq: Status: Active Protocol: Document 02/16/19 07:31 MB (Rec: 02/16/19 08:59 MB [id number]) Current Condition History of Current Condition Onset Date 2011 Current Complaints Dizziness with cervical rotation and manual work. 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 Her inner ear was spared and she has a drain. 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 She is seeing CELESTINO Molina at [facility], for vestibular therapy. 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 She was found to have enlarged lymph node around C2. She gets dizzy with cervical mobility stretches and rotation right and left. She is here for myofascial work on her neck. She wonders what myofascial is. She had a massage in the past and it was not necessarily helpful. She has been seeing CELESTINO Molina for about 2.5 months. She is working on balance exericses, eye movements. She did have a little massage with Tracy and it went well. Tracy wanted pt to have myofascial massage. She has spasms and numbness left side of her face after ear surgery. She has droopiness in the left side of her lips. Her biggest area of spasm is left buccal area. She describes an involuntary Xu curve. 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 She had one event over the last week. She has left rib discomfort. PT-OP-K Range of Motion Start: 02/16/19 07:27 Freq: Status: Active Protocol: Document 02/16/19 07:31 MB (Rec: 02/16/19 08:59 MB [id number]) Cervical Spine Range of Motion Cervical Spine Active Testing Position Standing Flexion 30 Extension 35 Rotation Left 31 Rotation Right 31 Lateral Flexion Left 15 Lateral Flexion Right 15 Comments Pt does not perform enough ROM to cause dizziness PT-OP-M Strength Start: 02/16/19 07:27 Freq: Status: Active Protocol: Document 02/16/19 07:31 MB (Rec: 02/16/19 08:59 MB [id number]) Shoulder Strength Shoulder Manual Muscle Testing Left Flexion 5 Normal Abduction (C5) 5 Normal Right Flexion 5 Normal Abduction (C5) 5 Normal Elbow/Forearm Strength Elbow and Forearm Manual Muscle Testing Left Flexion (C6) 5 Normal Extension (C7) 5 Normal Right Flexion (C6) 5 Normal Extension (C7) 5 Normal Wrist Strength Wrist Manual Muscle Testing Both Comments Deferred flexion, extension, supination and pronation MMT d /t ulnar bone changes PT-OP-Q Treatments Start: 02/16/19 07:27 Freq: Status: Active Protocol: Document 12/11/19 08:15 MB (Rec: 12/11/19 08:58 MB [id number]) Manual Therapy Treatment Manual Techniques Counterstrain Comments Pt agrees to Counterstrain to and treat fascial tension and PT assesses and treats the following areas: B dural, B cranial nerves, right ALL thoracic area, left pleural visceral, left DPR. Treatment included left pleural, B cranial nerves, right ALL Suboccipital releast with increased tension on the right , positional release right cervical paraspinals PT-OP-T Assessment and Plan Start: 02/16/19 07:27 Freq: Status: Active Protocol: Document 12/11/19 08:15 MB (Rec: 12/11/19 08:58 MB [id number]) Physical Therapy Assessment Rehab Potential Rehabilitation Potential Fair Evaluation Complexity Number of Personal Factors/Comorbidities 1-2 Number of Body Systems Impaired 1-2 Clinical Presentation at Evaluation Evolving Impairments Impairments Balance,Integument,Pain, Posture,ROM,Soft Tissue Mobility,Strength,Vestibular Goals 5 Impairment NDI score 28/50 Real Estate Analyst Goal (LTG) Pt will present with improved NDI score to reflect no more than 15% impairment to reflect decreased neck pain by 2019. 11/23/2019: NDI score reflects 18% impairment. 4 Impairment FGA 02/25 Senior Living Goal (LTG) Pt will perform WNLs on FGA to decrease fall risk by 2019. 11/23/2019: Pt tends to walk with UEs up/guarded and this adds to shoulder elevation. Walking with eyes closed also troublesome. Score 21/30, 11 points better than last reassessment LTG Duration 8 weeks 3 Real Estate Analyst Goal (LTG) Pt will present with improved B cervical rotation to 60 deg, B SB to 25 deg to increase functional movement by 2019. 11/23/2019: Pt presents with right rotation 55 deg and left rotation 52 deg; right SB 25 deg and left 25 deg. LTG Duration 8 weeks 2 Senior Living Goal (LTG) Pt will perform HEP with I to improve dizziness by 01/24/20. 11/23/2019: Pt is performing progressive HEP and can manage program, staggering when she performs exercises. LTG Duration 8 weeks 1 Impairment DHI reflects 60%, perception of severe handicap Real Estate Analyst Goal (LTG) Pt will present with a DHI reflecting no more than 20%, perception of moderate handicap by 01/24/2020. 11/23/2019: DHI score reflects 30% impairment, a 30% improvement since last reassessment LTG Duration 8 weeks Assessment Summary Assessment Counterstrain again today to address fascial tension. Increased tension on the right . Con't progression of exercises as pt tolerates. Will con't PT 5 treatments to clear up lingering fascial, postural and vestibular symptoms that affect posture and balance. PT recommends follow-up in the future for any lingering rib, postural problems that affect ongoing visceral and cervical and parasympathetic responses. Physical Therapy Plan Frequency and Duration Frequency of Treatment 2x/Week Duration of Treatment 8 weeks Plan of Care Start Date 11/23/19 Plan of Care End Date 01/25/20 Therapeutic Interventions Therapeutic Interventions Balance Training,Canalithic Repositioning,Home Exercise Program,Joint Mobilizations, Manual Therapy,Neuromuscular Re-education,Patient/Caregiver Education,Self-Care/Home Management,Soft Tissue Mobilization,Taping, Therapeutic Exercises, Vestibular Rehabilitation Modalities Cold Pack/Ice Massage,Electric Stimulation,Hot Packs, Ultrasound Next Visit Focus/Plan Next Note Type Treatment Note Next Visit Plan Con't progression including balance, con't manual work as needed. Anterior neck stretch, Buteyko diaphragm breathing. Consider cervical rotation with end-range nods and upper cervical isometric.
--- NOTE | 2019-12-18 09:06 | PT.OTN ---
Current Diagnoses Other peripheral vertigo, unspecified ear (12/18/19) Cervicalgia (12/18/19) Physical Therapy Treatment Note PT-OP-A Visit Information Start: 02/16/19 07:27 Freq: Status: Active Protocol: Document 12/18/19 08:15 MB (Rec: 12/18/19 08:39 MB [id number]) Out-Patient Physical Therapy Visit Information Visit Information Visit Type Treatment Note Visit Start Time 08:15 Visit Stop Time 09:00 Total Visit Minutes 45 Visit Number 08/06 until progress PT-OP-B Current Condition Start: 02/16/19 07:27 Freq: Status: Active Protocol: Document 02/16/19 07:31 MB (Rec: 02/16/19 08:59 MB [id number]) Current Condition History of Current Condition Onset Date 2011 Current Complaints Dizziness with cervical rotation and manual work. 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 Her inner ear was spared and she has a drain. 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 She is seeing CELESTINO Molina at [facility], for vestibular therapy. 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 She was found to have enlarged lymph node around C2. She gets dizzy with cervical mobility stretches and rotation right and left. She is here for myofascial work on her neck. She wonders what myofascial is. She had a massage in the past and it was not necessarily helpful. She has been seeing CELESTINO Molina for about 2.5 months. She is working on balance exericses, eye movements. She did have a little massage with Tracy and it went well. Tracy wanted pt to have myofascial massage. She has spasms and numbness left side of her face after ear surgery. She has droopiness in the left side of her lips. Her biggest area of spasm is left buccal area. She describes an involuntary Xu curve. 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 Her kittens are waking her up. PT-OP-K Range of Motion Start: 02/16/19 07:27 Freq: Status: Active Protocol: Document 02/16/19 07:31 MB (Rec: 02/16/19 08:59 MB [id number]) Cervical Spine Range of Motion Cervical Spine Active Testing Position Standing Flexion 30 Extension 35 Rotation Left 31 Rotation Right 31 Lateral Flexion Left 15 Lateral Flexion Right 15 Comments Pt does not perform enough ROM to cause dizziness PT-OP-M Strength Start: 02/16/19 07:27 Freq: Status: Active Protocol: Document 02/16/19 07:31 MB (Rec: 02/16/19 08:59 MB [id number]) Shoulder Strength Shoulder Manual Muscle Testing Left Flexion 5 Normal Abduction (C5) 5 Normal Right Flexion 5 Normal Abduction (C5) 5 Normal Elbow/Forearm Strength Elbow and Forearm Manual Muscle Testing Left Flexion (C6) 5 Normal Extension (C7) 5 Normal Right Flexion (C6) 5 Normal Extension (C7) 5 Normal Wrist Strength Wrist Manual Muscle Testing Both Comments Deferred flexion, extension, supination and pronation MMT d /t ulnar bone changes PT-OP-Q Treatments Start: 02/16/19 07:27 Freq: Status: Active Protocol: Document 12/18/19 08:15 MB (Rec: 12/18/19 08:39 MB [id number]) Therapeutic Exercises Sitting Exercises Cervical rotation with end-range nod Comments B, cues to lower shoulders by sitting on hands if able Anterior neck stretch Comments Hands on sternum Upper cervical isometric Comments Performed B, increased cues Manual Therapy Treatment Other Other Manual Treatments Diaphragm positional release with pt performing abdominal breathing, also rectus abdominus and hip flexor release B PT-OP-T Assessment and Plan Start: 02/16/19 07:27 Freq: Status: Active Protocol: Document 12/18/19 08:15 MB (Rec: 12/18/19 08:39 MB [id number]) Physical Therapy Assessment Rehab Potential Rehabilitation Potential Fair Evaluation Complexity Number of Personal Factors/Comorbidities 1-2 Number of Body Systems Impaired 1-2 Clinical Presentation at Evaluation Evolving Impairments Impairments Balance,Integument,Pain, Posture,ROM,Soft Tissue Mobility,Strength,Vestibular Goals 5 Impairment NDI score 28/50 Detention Goal (LTG) Pt will present with improved NDI score to reflect no more than 15% impairment to reflect decreased neck pain by 2019. 11/23/2019: NDI score reflects 18% impairment. 4 Impairment FGA 02/25 Detention Goal (LTG) Pt will perform WNLs on FGA to decrease fall risk by 2019. 11/23/2019: Pt tends to walk with UEs up/guarded and this adds to shoulder elevation. Walking with eyes closed also troublesome. Score 21/30, 11 points better than last reassessment LTG Duration 8 weeks 3 Detention Goal (LTG) Pt will present with improved B cervical rotation to 60 deg, B SB to 25 deg to increase functional movement by 2019. 11/23/2019: Pt presents with right rotation 55 deg and left rotation 52 deg; right SB 25 deg and left 25 deg. LTG Duration 8 weeks 2 Machine Packaging Technician Goal (LTG) Pt will perform HEP with I to improve dizziness by 01/24/20. 11/23/2019: Pt is performing progressive HEP and can manage program, staggering when she performs exercises. LTG Duration 8 weeks 1 Impairment DHI reflects 60%, perception of severe handicap Machine Packaging Technician Goal (LTG) Pt will present with a DHI reflecting no more than 20%, perception of moderate handicap by 01/24/2020. 11/23/2019: DHI score reflects 30% impairment, a 30% improvement since last reassessment LTG Duration 8 weeks Assessment Summary Assessment Added anterior neck stretch, cervical rotation and isometric today. Treated diaphragm tension to assist with posture and heart rate variability. Physical Therapy Plan Frequency and Duration Frequency of Treatment 2x/Week Duration of Treatment 8 weeks Plan of Care Start Date 11/23/19 Plan of Care End Date 01/25/20 Therapeutic Interventions Therapeutic Interventions Balance Training,Canalithic Repositioning,Home Exercise Program,Joint Mobilizations, Manual Therapy,Neuromuscular Re-education,Patient/Caregiver Education,Self-Care/Home Management,Soft Tissue Mobilization,Taping, Therapeutic Exercises, Vestibular Rehabilitation Modalities Cold Pack/Ice Massage,Electric Stimulation,Hot Packs, Ultrasound Next Visit Focus/Plan Next Note Type Treatment Note Next Visit Plan Review exercises
--- NOTE | 2019-12-25 08:59 | PT.OTN ---
Current Diagnoses Other peripheral vertigo, unspecified ear (12/25/19) Cervicalgia (12/25/19) Physical Therapy Treatment Note PT-OP-A Visit Information Start: 02/16/19 07:27 Freq: Status: Active Protocol: Document 12/25/19 08:14 MB (Rec: 12/25/19 08:47 MB [id number]) Out-Patient Physical Therapy Visit Information Visit Information Visit Type Treatment Note Visit Start Time 08:14 Visit Stop Time 08:58 Total Visit Minutes 44 Visit Number 09/05 until progress PT-OP-B Current Condition Start: 02/16/19 07:27 Freq: Status: Active Protocol: Document 02/16/19 07:31 MB (Rec: 02/16/19 08:59 MB [id number]) Current Condition History of Current Condition Onset Date 2011 Current Complaints Dizziness with cervical rotation and manual work. 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 Her inner ear was spared and she has a drain. 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 She is seeing CELESTINO Molina at [facility], for vestibular therapy. 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 She was found to have enlarged lymph node around C2. She gets dizzy with cervical mobility stretches and rotation right and left. She is here for myofascial work on her neck. She wonders what myofascial is. She had a massage in the past and it was not necessarily helpful. She has been seeing CELESTINO Molina for about 2.5 months. She is working on balance exericses, eye movements. She did have a little massage with Tracy and it went well. Tracy wanted pt to have myofascial massage. She has spasms and numbness left side of her face after ear surgery. She has droopiness in the left side of her lips. Her biggest area of spasm is left buccal area. She describes an involuntary Xu curve. 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 The vertigo is better. It feels allergy shot related. PT-OP-K Range of Motion Start: 02/16/19 07:27 Freq: Status: Active Protocol: Document 02/16/19 07:31 MB (Rec: 02/16/19 08:59 MB [id number]) Cervical Spine Range of Motion Cervical Spine Active Testing Position Standing Flexion 30 Extension 35 Rotation Left 31 Rotation Right 31 Lateral Flexion Left 15 Lateral Flexion Right 15 Comments Pt does not perform enough ROM to cause dizziness PT-OP-M Strength Start: 02/16/19 07:27 Freq: Status: Active Protocol: Document 02/16/19 07:31 MB (Rec: 02/16/19 08:59 MB [id number]) Shoulder Strength Shoulder Manual Muscle Testing Left Flexion 5 Normal Abduction (C5) 5 Normal Right Flexion 5 Normal Abduction (C5) 5 Normal Elbow/Forearm Strength Elbow and Forearm Manual Muscle Testing Left Flexion (C6) 5 Normal Extension (C7) 5 Normal Right Flexion (C6) 5 Normal Extension (C7) 5 Normal Wrist Strength Wrist Manual Muscle Testing Both Comments Deferred flexion, extension, supination and pronation MMT d /t ulnar bone changes PT-OP-Q Treatments Start: 02/16/19 07:27 Freq: Status: Active Protocol: Document 12/25/19 08:14 MB (Rec: 12/25/19 08:47 MB [id number]) Therapeutic Exercises Sitting Exercises Upper cervical isometric Comments Re-ed today Manual Therapy Treatment Other Other Manual Treatments STM B STM with MWM with pt performing AAROM cervical rotation, suboccipital release , grade II PA mobs cervical spine, cervical AROM/MWM with PT providing trigger point pressure B upper traps, positional release proximal rectus PT-OP-T Assessment and Plan Start: 02/16/19 07:27 Freq: Status: Active Protocol: Document 12/25/19 08:14 MB (Rec: 12/25/19 08:47 MB [id number]) Physical Therapy Assessment Rehab Potential Rehabilitation Potential Fair Evaluation Complexity Number of Personal Factors/Comorbidities 1-2 Number of Body Systems Impaired 1-2 Clinical Presentation at Evaluation Evolving Impairments Impairments Balance,Integument,Pain, Posture,ROM,Soft Tissue Mobility,Strength,Vestibular Goals 5 Impairment NDI score 28/50 Front End Web Designer Goal (LTG) Pt will present with improved NDI score to reflect no more than 15% impairment to reflect decreased neck pain by 2019. 11/23/2019: NDI score reflects 18% impairment. 4 Impairment FGA 02/25 Fdc Goal (LTG) Pt will perform WNLs on FGA to decrease fall risk by 2019. 11/23/2019: Pt tends to walk with UEs up/guarded and this adds to shoulder elevation. Walking with eyes closed also troublesome. Score 2130, 11 points better than last reassessment LTG Duration 8 weeks 3 Front End Web Designer Goal (LTG) Pt will present with improved B cervical rotation to 60 deg, B SB to 25 deg to increase functional movement by 2019. 11/23/2019: Pt presents with right rotation 55 deg and left rotation 52 deg; right SB 25 deg and left 25 deg. LTG Duration 8 weeks 2 Front End Web Designer Goal (LTG) Pt will perform HEP with I to improve dizziness by 01/24/20. 11/23/2019: Pt is performing progressive HEP and can manage program, staggering when she performs exercises. LTG Duration 8 weeks 1 Impairment DHI reflects 60%, perception of severe handicap Fdc Goal (LTG) Pt will present with a DHI reflecting no more than 20%, perception of moderate handicap by 01/24/2020. 11/23/2019: DHI score reflects 30% impairment, a 30% improvement since last reassessment LTG Duration 8 weeks Assessment Summary Assessment Pt discovered that vertigo episodes are related to allergy shots. Pt presents with improving SCM tension after manual work today. Physical Therapy Plan Frequency and Duration Frequency of Treatment 2x/Week Duration of Treatment 8 weeks Plan of Care Start Date 11/23/19 Plan of Care End Date 01/25/20 Therapeutic Interventions Therapeutic Interventions Balance Training,Canalithic Repositioning,Home Exercise Program,Joint Mobilizations, Manual Therapy,Neuromuscular Re-education,Patient/Caregiver Education,Self-Care/Home Management,Soft Tissue Mobilization,Taping, Therapeutic Exercises, Vestibular Rehabilitation Modalities Cold Pack/Ice Massage,Electric Stimulation,Hot Packs, Ultrasound Next Visit Focus/Plan Next Note Type Treatment Note Next Visit Plan Review exercises and progress as appropriate
--- NOTE | 2019-12-29 09:47 | PT.OTN ---
Current Diagnoses Other peripheral vertigo, unspecified ear (12/29/19) Cervicalgia (12/29/19) Physical Therapy Treatment Note PT-OP-A Visit Information Start: 02/16/19 07:27 Freq: Status: Active Protocol: Document 12/29/19 09:01 MB (Rec: 12/29/19 09:46 MB [id number]) Out-Patient Physical Therapy Visit Information Visit Information Visit Type Treatment Note Visit Start Time 09:01 Visit Stop Time 09:45 Total Visit Minutes 44 Visit Number 10/06 PT-OP-B Current Condition Start: 02/16/19 07:27 Freq: Status: Active Protocol: Document 02/16/19 07:31 MB (Rec: 02/16/19 08:59 MB [id number]) Current Condition History of Current Condition Onset Date 2011 Current Complaints Dizziness with cervical rotation and manual work. 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 Her inner ear was spared and she has a drain. 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 She is seeing CELESTINO Molina at [facility], for vestibular therapy. 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 She was found to have enlarged lymph node around C2. She gets dizzy with cervical mobility stretches and rotation right and left. She is here for myofascial work on her neck. She wonders what myofascial is. She had a massage in the past and it was not necessarily helpful. She has been seeing CELESTINO Molina for about 2.5 months. She is working on balance exericses, eye movements. She did have a little massage with Tracy and it went well. Tracy wanted pt to have myofascial massage. She has spasms and numbness left side of her face after ear surgery. She has droopiness in the left side of her lips. Her biggest area of spasm is left buccal area. She describes an involuntary Xu curve. 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 Pt states that she has a cyst on the left side of her spine found on a CT a while back. She wonders if this is a problem. PT-OP-K Range of Motion Start: 02/16/19 07:27 Freq: Status: Active Protocol: Document 02/16/19 07:31 MB (Rec: 02/16/19 08:59 MB [id number]) Cervical Spine Range of Motion Cervical Spine Active Testing Position Standing Flexion 30 Extension 35 Rotation Left 31 Rotation Right 31 Lateral Flexion Left 15 Lateral Flexion Right 15 Comments Pt does not perform enough ROM to cause dizziness PT-OP-M Strength Start: 02/16/19 07:27 Freq: Status: Active Protocol: Document 02/16/19 07:31 MB (Rec: 02/16/19 08:59 MB [id number]) Shoulder Strength Shoulder Manual Muscle Testing Left Flexion 5 Normal Abduction (C5) 5 Normal Right Flexion 5 Normal Abduction (C5) 5 Normal Elbow/Forearm Strength Elbow and Forearm Manual Muscle Testing Left Flexion (C6) 5 Normal Extension (C7) 5 Normal Right Flexion (C6) 5 Normal Extension (C7) 5 Normal Wrist Strength Wrist Manual Muscle Testing Both Comments Deferred flexion, extension, supination and pronation MMT d /t ulnar bone changes PT-OP-Q Treatments Start: 02/16/19 07:27 Freq: Status: Active Protocol: Document 12/29/19 09:01 MB (Rec: 12/29/19 09:46 MB [id number]) Therapeutic Exercises Sitting Exercises Anterior neck stretch Side bilateral Comments Pt performs I Upper cervical isometric Side bilateral Comments Practiced again today as pt has not been dropping chin Manual Therapy Treatment Other Other Manual Treatments Pt agrees to Counterstrain to assess and treat fascial tension. Pt presents with increased tension right ALL, sinuvertebral, dura, and DPR, left periosteal UE. PT treats stacks (B) all systems as needed. Pt denies eye pressure changes. PT-OP-T Assessment and Plan Start: 02/16/19 07:27 Freq: Status: Active Protocol: Document 12/29/19 09:01 MB (Rec: 12/29/19 09:46 MB [id number]) Physical Therapy Assessment Rehab Potential Rehabilitation Potential Fair Evaluation Complexity Number of Personal Factors/Comorbidities 1-2 Number of Body Systems Impaired 1-2 Clinical Presentation at Evaluation Evolving Impairments Impairments Balance,Integument,Pain, Posture,ROM,Soft Tissue Mobility,Strength,Vestibular Goals 5 Impairment NDI score 28/50 Custodial Goal (LTG) Pt will present with improved NDI score to reflect no more than 15% impairment to reflect decreased neck pain by 2019. 11/23/2019: NDI score reflects 18% impairment. 4 Impairment FGA 02/25 Custodial Goal (LTG) Pt will perform WNLs on FGA to decrease fall risk by 2019. 11/23/2019: Pt tends to walk with UEs up/guarded and this adds to shoulder elevation. Walking with eyes closed also troublesome. Score , 11 points better than last reassessment LTG Duration 8 weeks 3 Shoe Caser Goal (LTG) Pt will present with improved B cervical rotation to 60 deg, B SB to 25 deg to increase functional movement by 2019. 11/23/2019: Pt presents with right rotation 55 deg and left rotation 52 deg; right SB 25 deg and left 25 deg. LTG Duration 8 weeks 2 Shoe Caser Goal (LTG) Pt will perform HEP with I to improve dizziness by 01/24/20. 11/23/2019: Pt is performing progressive HEP and can manage program, staggering when she performs exercises. LTG Duration 8 weeks 1 Impairment DHI reflects 60%, perception of severe handicap Shoe Caser Goal (LTG) Pt will present with a DHI reflecting no more than 20%, perception of moderate handicap by 01/24/2020. 11/23/2019: DHI score reflects 30% impairment, a 30% improvement since last reassessment LTG Duration 8 weeks Assessment Summary Assessment Pt presents with improved cervical rotation after manual work and isometric today. Con 't progression. Physical Therapy Plan Frequency and Duration Frequency of Treatment 2x/Week Duration of Treatment 8 weeks Plan of Care Start Date 11/23/19 Plan of Care End Date 01/25/20 Therapeutic Interventions Therapeutic Interventions Balance Training,Canalithic Repositioning,Home Exercise Program,Joint Mobilizations, Manual Therapy,Neuromuscular Re-education,Patient/Caregiver Education,Self-Care/Home Management,Soft Tissue Mobilization,Taping, Therapeutic Exercises, Vestibular Rehabilitation Modalities Cold Pack/Ice Massage,Electric Stimulation,Hot Packs, Ultrasound Next Visit Focus/Plan Next Note Type Treatment Note Next Visit Plan Review exercises and progress as appropriate, con't manual work as needed
--- NOTE | 2020-01-19 08:43 | PT.OPDS ---
Current Diagnoses Other peripheral vertigo, unspecified ear (12/29/19) Cervicalgia (12/29/19) Visit Care Team Role Provider Type Priscila Bella DO Attending Provider Non-Staff Primary Care Provider Specialty: Medical Address: [address] [place] [address], [id number] Email: Visit Number Visit Number 10/06 Discharge Summary PT-OP-B Current Condition Start: 02/16/19 07:27 Freq: Status: Active Protocol: Document 02/16/19 07:31 MB (Rec: 02/16/19 08:59 MB [id number]) Current Condition History of Current Condition Onset Date 2011 Current Complaints Dizziness with cervical rotation and manual work. 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 Her inner ear was spared and she has a drain. 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 She is seeing CELESTINO Molina at [facility], for vestibular therapy. 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 She was found to have enlarged lymph node around C2. She gets dizzy with cervical mobility stretches and rotation right and left. She is here for myofascial work on her neck. She wonders what myofascial is. She had a massage in the past and it was not necessarily helpful. She has been seeing CELESTINO Molina for about 2.5 months. She is working on balance exericses, eye movements. She did have a little massage with Tracy and it went well. Tracy wanted pt to have myofascial massage. She has spasms and numbness left side of her face after ear surgery. She has droopiness in the left side of her lips. Her biggest area of spasm is left buccal area. She describes an involuntary Xu curve. 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 Pt states that she has a cyst on the left side of her spine found on a CT a while back. She wonders if this is a problem. PT-OP-K Range of Motion Start: 02/16/19 07:27 Freq: Status: Active Protocol: Document 02/16/19 07:31 MB (Rec: 02/16/19 08:59 MB [id number]) Cervical Spine Range of Motion Cervical Spine Active Testing Position Standing Flexion 30 Extension 35 Rotation Left 31 Rotation Right 31 Lateral Flexion Left 15 Lateral Flexion Right 15 Comments Pt does not perform enough ROM to cause dizziness PT-OP-M Strength Start: 02/16/19 07:27 Freq: Status: Active Protocol: Document 02/16/19 07:31 MB (Rec: 02/16/19 08:59 MB [id number]) Shoulder Strength Shoulder Manual Muscle Testing Left Flexion 5 Normal Abduction (C5) 5 Normal Right Flexion 5 Normal Abduction (C5) 5 Normal Elbow/Forearm Strength Elbow and Forearm Manual Muscle Testing Left Flexion (C6) 5 Normal Extension (C7) 5 Normal Right Flexion (C6) 5 Normal Extension (C7) 5 Normal Wrist Strength Wrist Manual Muscle Testing Both Comments Deferred flexion, extension, supination and pronation MMT d /t ulnar bone changes PT-OP-T Assessment and Plan Start: 02/16/19 07:27 Freq: Status: Active Protocol: Document 01/19/20 08:41 MB (Rec: 01/19/20 08:43 MB [id number]) Physical Therapy Plan Discharge Physical Therapy Discharge Reasons Patient Request Discharge Comments Pt cancelled appointments. She has currently reached self- management phase. Her dizziness and neck symptoms are better and she is performing HEP. Will d/c PT. PT referral as appropriate in the future given chronicity and multi-factorial nature of symptoms.
== END 2020-02-16 10:58 ==
LOC: PHYS 09:00
PROVIDERS: PCP Family Medicine; Visit Provider Family Medicine
DX: H81.399 Other peripheral vertigo, unspecified ear (principal); M54.2 Cervicalgia
CPT/HCPCS: 97110; 97112; 97116; 97140; 97162

== ENCOUNTER → 2021-03-15 09:55 | Outpatient (CLI) | payer OTHER, SELFPAY ==
--- NOTE | 2021-03-15 | DI.US.S_ITS ---
PROCEDURE: US ABDOMEN LIMITED INDICATIONS: RIGHT UPPER QUADRANT PAIN TECHNIQUE: Real-time scanning was performed of the abdominal and retroperitoneal organs, with image documentation. COMPARISON: None. FINDINGS: Liver: Hepatic parenchyma shows diffuse increased echogenicity consistent with fatty infiltration. Main portal vein shows hepatopetal flow. Gallbladder: Biliary sludge noted within the lumen the gallbladder without shadowing. Gallbladder wall thickness is normal at 2 mm. No pericholecystic fluid or Valdez sign present. Biliary ducts: Not visualized Pancreas: Nonvisualized Study is limited by body habitus and overlying bowel gas. IMPRESSION: 1. Biliary sludge without ultrasound evidence of acute cholecystitis. 2. Hepatic fatty infiltration 3. Limited study due to body habitus and overlying bowel gas. Approved by: Hiram Garibay M.D. on 03/15/2021 at 16:08
== END ==
PROVIDERS: PCP Family Medicine; Referring Provider Student in an Organized Health Care Education/Training Program; Visit Provider Student in an Organized Health Care Education/Training Program
DX: R10.11 Right upper quadrant pain (principal); K83.8 Other specified diseases of biliary tract; K76.0 Fatty (change of) liver, not elsewhere classified
CPT/HCPCS: 76705

== ENCOUNTER → 2022-07-12 13:19 | Outpatient (CLI) | payer OTHER, SELFPAY ==
--- NOTE | 2022-07-12 | DI.MG.S_ITS ---
BILATERAL DIGITAL SCREENING MAMMOGRAM 3D/2D WITH CAD: 07/12/2022 CLINICAL: Baseline exam. Routine screening. No prior exams were available for comparison. Both breasts are heterogeneously dense, which may obscure small masses (category c / 51-75% glandular tissue). Current study was also evaluated with a Computer Aided Detection (CAD) system. There is a round asymmetry in the left breast at 4 o'clock middle depth. No other significant masses, calcifications, or other findings are seen in either breast. IMPRESSION: INCOMPLETE: NEEDS ADDITIONAL IMAGING EVALUATION The round asymmetry in the left breast is indeterminate. Additional views with possible ultrasound are recommended. Based on the Tyrer Cuzick model (a risk assessment model) the patient's lifetime risk is 5.1% and her 10 year risk is 0.7%. According to the ACR, ACS, and NCCN guidelines, an annual breast MRI exam along with mammogram is recommended if the patient's lifetime risk is 20% or greater. This exam was interpreted at Station ID: [id number]. NOTE: For mammograms, a report in lay terms will be sent to the patient. Approximately 15% of breast malignancies will not be visualized mammographically. In the management of a palpable breast mass, a negative mammogram must not discourage biopsy of a clinically suspicious lesion. Electronically Signed By: Dima malone/zen:07/12/2022 14:56:26 letter sent: Additional Imaging Needed ACR BI-RADS Category 0: Incomplete [id number]
== END ==
PROVIDERS: PCP Family Medicine; Referring Provider Nurse Practitioner Family; Visit Provider Nurse Practitioner Family
DX: Z12.31 Encounter for screening mammogram for malignant neoplasm of breast (principal)
CPT/HCPCS: 77063; 77067